=== PATIENT | female | born 1975 | race African-American/Black ===

== ENCOUNTER 2019-12-30 08:00 | Emergency (ER) | payer MEDICAID, SELFPAY ==
[2019-12-30] VITALS (34 sets, daily range): BP systolic 129–153; BP diastolic 75–100; PULSE 80–96; RESP 12–27; TEMP 36.9; O2SAT 98–100
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
[2019-12-30 09:15] LABS: Basophils Percent Auto 0.5 % (0.2-1.2); Eosinophils Absolute Auto 0.1 K/mm3 (0-0.3); Eosinophils Percent Auto 2.3 % (0-4.4); Hematocrit 39.4 % (37.0-47.0); Hemoglobin 12.2 g/dL (12.0-15.0); Lymphocytes Absolute Auto 2.32 K/mm3 (0.9-3.2); Lymphocytes Percent Auto 52.4 % (18.3-44.2); Mean Corpuscular Hemoglobin 28.5 pg (26-34); Mean Corpuscular Volume 92.1 fl (80-100); Monocytes Absolute Auto 0.4 K/mm3 (0.1-0.6); Monocytes Percent Auto 8.8 % (2.6-8.5); Neutrophils Absolute Auto 1.6 K/mm3 (1.3-6.7); Platelet Count Result 223 k/mm3 (150-375); Red Blood Count 4.28 M/mm3 (4.2-5.4); White Blood Count 4.4 K/mm3 (4.5-10.0)
[2019-12-30 09:30] LABS: Alanine Aminotransferase 42 U/L (4-35); Albumin Level 4.5 g/dL (3.5-5.1); Alkaline Phosphatase 80 U/L (38-126); Aspartate Amino Transferase 39 U/L (14-36); Bilirubin,Total 0.2 mg/dL (0.2-1.3); Blood Urea Nitrogen 14 mg/dL (7-17); CRP < 0.5 mg/dL (<1.0); Calcium 9.6 mg/dL (8.4-10.2); Carbon Dioxide 24 mmol/L (22-30); Chloride 103 mmol/L (98-107); Estimated CRCL calculation 99 ml/min; Estimated Glomerular Filt Rate > 60; Glucose 93 mg/dL (65-105); Potassium 3.9 mmol/L (3.4-5.0); Sodium 141 mmol/L (137-145)
[2019-12-30 09:49] LABS: Add Urine Microscopic? YES; Appearance Urine Clear (Clear); Bacteria Urine Trace /hpf; Bilirubin Urine Negative (Negative); Blood Urine Negative (Negative); Color Urine Straw (Yellow); Glucose Urine UA Negative (Negative); Ketones Urine Negative (Negative); Leukocyte Esterase Ur Trace LEU/UL (Negative); Mucus Urine Rare /lpf; Nitrate Urine Negative (Negative); Protein Urine Negative (Negative); RBC Urine 0-2 /hpf (0-2); Specific Grav Ur 1.013 (1.001-1.035); Squamous Epithelial Cell Urine Few /hpf (Few); Urobilinogen Urine Negative mg/dL (<2.0)
[2019-12-30 10:29] LABS: Erythrocyte Sedimentation Rate 23 mm/hr (0-20)
--- NOTE | 2019-12-30 14:11 | PC.NURSE ---
Sitting at bedside. Using left arm to put clothes on.
== END 2019-12-30 14:23 | disposition home or self-care (01) ==
PROVIDERS: Emergency Provider Emergency Medicine
DX: M32.9 Systemic lupus erythematosus, unspecified (principal); J45.909 Unspecified asthma, uncomplicated; M06.9 Rheumatoid arthritis, unspecified; M35.00 Sjogren syndrome, unspecified; G62.9 Polyneuropathy, unspecified; Z86.2 Personal history of diseases of the blood and blood-forming organs and certain disorders involving the immune mechanism
CPT/HCPCS: 36415; 80053; 81001; 85025; 85652; 86140; 99283

== ENCOUNTER 2021-08-06 13:38 | Emergency (ER) | payer BC, MEDICAID, SELFPAY ==
--- NOTE | ~2021-08-06 | CT_ITS ---
EXAMINATION: CT abdomen pelvis w con DATE: 08/06/2021 17:21 INDICATION: Right lower quadrant pain for 10 days TECHNIQUE: Computed tomography (CT) of the abdomen and pelvis was performed with 100 cc Omnipaque 350 intravenous contrast. Automated exposure control and iterative reconstruction technique were employe d. Exam dose: 1081.10 mGy-cm total exam DLP. COMPARISON: None. FINDINGS: Normal heart size. No pericardial or pleural effusion. The lung bases are clear of consolid ation. Diffuse hepatic steatosis. No hepatic space-occupying mass lesion is evident. The gallbladder is pres ent. No bile duct or pancreatic duct dilatation or pancreatic mass lesion or calcification. Normal sp lenic size. Normal morphology of the adrenal glands. 5 mm lower pole right renal cyst. 6.5 mm left renal upper pole probable cyst. No urinary tract calcul us or hydroureteronephrosis. The urinary bladder is unremarkable. Normal caliber of the abdominal aorta. No intraperitoneal or retroperitoneal or pelvic mass lesion or adenopathy or ascites is detected. Normal appendix. Scattered diverticula of the sigmoid colon; no CT evidence of diverticulitis. No bow el obstruction, bowel wall thickening, pneumatosis or intraperitoneal free air. Status post hysterectomy. Very small fat-containing umbilical hernia. Included skeletal structures are unremarkable, without evidence of suspicious osteolytic or osteoblas tic lesion IMPRESSION: Normal appendix Hepatic steatosis Diverticulosis of the sigmoid colon; no CT evidence of diverticulitis Small probable bilateral renal cysts Status post hysterectomy Reviewed, dictated and finalized at [facility] Reviewed, dictated and finalized at [facility].
[2021-08-06 13:42] VITALS: BP 168/115; PULSE 91; RESP 18; TEMP 36.5; O2SAT 99
[2021-08-06 13:52] LABS: Basophils Percent Auto 0.3 % (0.2-1.2); Eosinophils Absolute Auto 0.2 K/mm3 (0-0.3); Hematocrit 37.3 % (37.0-47.0); Hemoglobin 11.8 g/dL (12.0-15.0); Lymphocytes Absolute Auto 1.55 K/mm3 (0.9-3.2); Mean Corpuscular HGB Conc 31.6 g/dl (32-36); Mean Corpuscular Hemoglobin 29.4 pg (26-34); Mean Platelet Volume 10.5 fl (7.4-10.4); Monocytes Absolute Auto 0.4 K/mm3 (0.1-0.6); Monocytes Percent Auto 10.3 % (2.6-8.5); Neutrophils Absolute Auto 1.8 K/mm3 (1.3-6.7); Neutrophils Percent Auto 45.4 % (45.5-73.1); Platelet Count Result 227 k/mm3 (150-375); Red Blood Count 4.01 M/mm3 (4.2-5.4); Red Cell Distribution Width 12.6 % (11.5-14.5)
[2021-08-06 14:09] LABS: Anion Gap 7 mmol/L (8-16); Blood Urea Nitrogen 9 mg/dL (7-17); Calcium 9.4 mg/dL (8.4-10.2); Carbon Dioxide 29 mmol/L (22-30); Chloride 107 mmol/L (98-107); Estimated CRCL calculation 99 ml/min; Estimated Glomerular Filt Rate > 60; Glucose 109 mg/dL (65-110); Potassium 3.8 mmol/L (3.4-5.0); Sodium 143 mmol/L (137-145)
[2021-08-06 14:23] LABS: Add Urine Microscopic? YES; Appearance Urine Clear (Clear); Bilirubin Urine Negative (Negative); Blood Urine Negative (Negative); Color Urine Yellow (Yellow); Glucose Urine UA Negative (Negative); Ketones Urine Negative (Negative); Leukocyte Esterase Ur Negative LEU/UL (Negative); Mucus Urine Rare /lpf; Nitrate Urine Negative (Negative); Protein Urine Negative (Negative); Specific Grav Ur 1.018 (1.001-1.035); Squamous Epithelial Cell Urine Few /hpf (Few); WBC Urine 0-3 /hpf
[2021-08-06 16:03] VITALS: BP 153/104; PULSE 84; RESP 16; O2SAT 98
[2021-08-06] MEDS: DICYCLOMINE HCL INJ 20 MG/2 ML VIAL IM (18:38)
[2021-08-06 19:09] VITALS: BP 142/89; PULSE 88; RESP 18; O2SAT 100
--- NOTE | 2021-08-06 20:07 | ED.ABDPAIN ---
HPI - Abdominal Pain General Chief Complaint: Abdominal Pain Stated Complaint: right flank pain Time Seen by Provider: 08/06/21 16:05 Source: patient Mode of arrival: ambulatory Limitations: no limitations History of Present Illness HPI narrative: 46-year-old female Here for right-sided abdominal pain Pain started about 2 weeks ago and is slowly gotten worse She initially saw her PCP about 12 days ago and at that time she had a CT scan which was done elsewhere which she reports was unremarkable She has a poor appetite, but is not vomiting No fever, no diarrhea She denies urinary symptoms Pain is worse with palpation some movements of her legs walking some positions and movements She has previously had a hysterectomy but no other abdominal operations Related Data Home Medications Medication Instructions Recorded Confirmed acetaminophen-codeine tablet 08/06/21 albuterol sulfate INHALATION 08/06/21 amitriptyline 08/06/21 duloxetine mg PO 08/06/21 leflunomide mg 08/06/21 sulfamethoxazole-trimethoprim tablet 08/06/21 Allergies Allergy/AdvReac Type Severity Reaction Status Date / Time lactose Allergy Unknown UNKNOWN Verified 08/06/21 16:14 Review of Systems Review of Systems: All systems reviewed & are unremarkable except as noted in HPI and below Constitutional: Constitutional: Reports no additional constitutional complaints, Denies chills, Denies fever(s) and Denies headache(s) Eyes: Eyes: Reports no additional eye complaints and Denies change in vision ENT: Denies headache(s) and Denies sore throat Cardiovascular: Cardiovascular: Denies chest pain and Denies dyspnea Respiratory: Respiratory: Denies cough and Denies dyspnea Gastrointestinal: Gastrointestinal: Reports abdominal pain, Denies bloating, Denies constipation, Denies diarrhea and Denies vomiting Genitourinary: Genitourinary: Denies urinary frequency, Denies nocturia, Denies dysuria and Denies flank pain Musculoskeletal: Musculoskeletal: Denies deformity, Denies arthralgias, Denies joint swelling and Denies numbness Integumentary/Breasts: Skin/Breast: Denies rash and Denies wounds Neurologic: Denies headache(s), Denies focal weakness and Denies numbness Psychiatric: Psychiatric: Reports no additional psychiatric complaints Endocrine: Endocrine: Reports no additional endocrine complaints Hematologic/Lymphatic: Hematologic/Lymphatic: Reports no additional hematologic/lymphatic complaints Allergic/Immunologic: Allergic/Immunologic: Reports no additional allergic/immunologic complaints PMFSH Past Medical History Medical History (Updated 08/06/21 @ 20:09 by Joao Espinoza MD) Anemia Anxiety Asthma Depression Diverticulitis Eczema History of chemotherapy Lupus Peripheral neuropathy Rheumatoid arthritis Sjogren's disease Surgical History Surgical History H/O: hysterectomy Social History Social History Smoking status: Unknown if ever smoked Exam Const: General: cooperative and no acute distress Orientation/consciousness: patient oriented x3 (alert) HENMT: Head: normal to inspection, normocephalic and atraumatic Ears: external ears normal General nose exam: no epistaxis Eyes: Conjunctivae: conjunctivae normal EOM: EOMs intact bilaterally Neck: Neck: normal visual inspection, supple and no JVD Resp: Effort & Inspection: normal respiratory effort and not labored Auscultation: clear to auscultation bilaterally, no rales, no rhonchi, no wheezes and other (BS =) Cardio: Rate: regular rate Rhythm: regular rhythm Heart sounds: no murmurs GI: GI Palp: Yes Soft to palpation, Yes Tenderness to palpation present (GI), No Guarding due to palpation present (GI) and Yes Rebound tenderness present Other: Tenderness is pretty well localized within the right lower quadrant, no masses felt, there is little bit of rebound tendernes
[2021-08-06 20:23] VITALS: BP 136/78; PULSE 77; RESP 18; O2SAT 100
== END 2021-08-06 20:24 | disposition home or self-care (01) ==
PROVIDERS: Emergency Provider Emergency Medicine
DX: R10.9 Unspecified abdominal pain (principal); J45.909 Unspecified asthma, uncomplicated; D64.9 Anemia, unspecified; M35.00 Sjogren syndrome, unspecified; M06.9 Rheumatoid arthritis, unspecified; G62.9 Polyneuropathy, unspecified; F41.9 Anxiety disorder, unspecified; F32.9 Major depressive disorder, single episode, unspecified; K76.0 Fatty (change of) liver, not elsewhere classified; K57.90 Diverticulosis of intestine, part unspecified, without perforation or abscess without bleeding; R93.422 Abnormal radiologic findings on diagnostic imaging of left kidney; R93.421 Abnormal radiologic findings on diagnostic imaging of right kidney
CPT/HCPCS: 36415; 74177; 80048; 81001; 81025; 85025; 96372; 99284; J0500; Q9967

== ENCOUNTER 2023-10-12 20:22 | Emergency (ER) | payer BC, SELFPAY ==
[2023-10-12] VITALS (8 sets, daily range): BP systolic 131–158; BP diastolic 76–110; PULSE 98–113; RESP 12–26; TEMP 37.1; O2SAT 98–100
--- NOTE | ~2023-10-12 | XR_ITS ---
EXAMINATION: XR chest 2V Exam Date/Time: 10/12/2023 20:40 [employer] HISTORY: cp MID ANTERIOR X 1 DAY Comparison: 08/02/2019. RESULT: Lines, tubes, and devices: None. Lungs and pleura: Clear. Cardiomediastinal silhouette: Unremarkable. Other: No acute osseous or upper abdominal finding. IMPRESSION: No acute cardiopulmonary process. Reviewed, dictated and finalized at [facility] [employer]
--- NOTE | 2023-10-12 20:23 | ECG_ITS ---
Measurements Intervals [place] Rate: 108 P: 46 CO: 116 QRS: 21 QRSD: 94 T: 37 QT: 350 QTc: 470 Interpretive Statements SINUS TACHYCARDIA WITH SHORT CO INTERVAL DELAYED PRECORDIAL R/S TRANSITION ABNORMAL ECG COMPARED TO ECG 08/03/2019 18:39:08 SINUS TACHYCARDIA NOW PRESENT Electronically Signed On 10-13-2023 6:18:48 MEDIA SERVICES DIRECTOR by Óscar Avendaño D.O.
[2023-10-12 20:48] LABS: Basophils Percent Auto 0.2 % (0.2-1.2); Eosinophils Absolute Auto 0.1 K/mm3 (0-0.3); Eosinophils Percent Auto 1.7 % (0-4.4); Hematocrit 38.1 % (37.0-47.0); Hemoglobin 11.9 g/dL (12.0-15.0); Immature Granulocyte Absolute 0.01 K/mm3 (0.00-0.031); Immature Granulocyte Percent A 0.2 % (0-0.5); Lymphocytes Percent Auto 24.3 % (18.3-44.2); Mean Corpuscular HGB Conc 31.2 g/dl (32-36); Mean Corpuscular Hemoglobin 28.6 pg (26-34); Mean Corpuscular Volume 91.6 fl (80-100); Mean Platelet Volume 10.2 fl (7.4-10.4); Monocytes Absolute Auto 0.5 K/mm3 (0.1-0.6); Monocytes Percent Auto 10.1 % (2.6-8.5); Neutrophils Absolute Auto 3.4 K/mm3 (1.3-6.7); Neutrophils Percent Auto 63.5 % (45.5-73.1); Platelet Count Result 232 k/mm3 (150-375); Red Blood Count 4.16 M/mm3 (4.2-5.4); Red Cell Distribution Width 12.7 % (11.5-14.5); White Blood Count 5.4 K/mm3 (4.5-10.0)
[2023-10-12 20:51] LABS: Alanine Aminotransferase 23 U/L (6-35); Albumin Level 4.5 g/dL (3.5-5.1); Alkaline Phosphatase 72 U/L (38-126); Anion Gap 8 mmol/L (8-16); Aspartate Amino Transferase 33 U/L (14-36); Bilirubin,Total 0.4 mg/dL (0.2-1.3); Blood Urea Nitrogen 10 mg/dL (7-17); Calcium 9.2 mg/dL (8.4-10.2); Carbon Dioxide 26 mmol/L (22-30); Chloride 109 mmol/L (98-107); Estimated CRCL calculation 95 ml/min; Estimated Glomerular Filt Rate > 60; Glucose 98 mg/dL (65-110); Lipase 122 U/L (23-300); Potassium 3.9 mmol/L (3.4-5.0); Sodium 143 mmol/L (137-145)
[2023-10-12 21:03] LABS: Troponin I < 0.012 ng/mL (0.000-0.034)
[2023-10-12 21:40] LABS: Prothrombin Time 13.5 Seconds (11.1-14.7)
[2023-10-12 21:41] LABS: Partial Thromboplastin Time 25.2 SECONDS (22.3-36.8)
[2023-10-12] MEDS: ASPIRIN 81 MG CHEWABLE TABLET 324 MG PO (23:16)
--- NOTE | 2023-10-12 23:27 | PC.NURSE ---
care and report given to ARTHUR Mittal. all questions answered.
[2023-10-12 23:51] LABS: D Dimer 0.28 ug/mL (<0.48)
[2023-10-12 23:56] LABS: Troponin I < 0.012 ng/mL (0.000-0.034)
[2023-10-13 00:15] VITALS: BP 152/97; PULSE 97; RESP 17; O2SAT 100
--- NOTE | 2023-10-13 01:14 | ED.GENADULT ---
HPI - General Adult General Chief complaint: Chest Pain Stated complaint: chest pain Time Seen by Provider: 10/12/23 23:08 History of Present Illness HPI narrative: Patient is a 48-year-old female who presents emerged from with chief complaint of chest pain. Patient reports around 10:00 a.m. this morning started having pains reports having aching like sensation reports that she took some antacids without really relief. The patient does report the pain has been pretty well constant does report that it is worse with movement. Related Data Home Medications Medication Instructions Recorded Confirmed acetaminophen 300 mg-codeine 30 mg tablet 08/06/21 tablet albuterol sulfate 90 mcg/actuation inhalation 08/06/21 aerosol inhaler amitriptyline 10 mg tablet 08/06/21 duloxetine 60 mg capsule,delayed mg PO 08/06/21 release leflunomide 20 mg tablet mg 08/06/21 sulfamethoxazole 800 tablet 08/06/21 mg-trimethoprim 160 mg tablet Allergies Allergy/AdvReac Type Severity Reaction Status Date / Time lactose Allergy Unknown UNKNOWN Verified 08/06/21 16:14 Review of Systems Review of Systems: A 10 system review of systems was completed on the patient and is negative except for what is stated in the HPI. Nursing and ancillary documentation was reviewed. [facility] Past Medical History Medical History (Updated 10/13/23 @ 01:16 by Mikhail Kelly MD) Anemia Anxiety Asthma Depression Diverticulitis Eczema History of chemotherapy Lupus Peripheral neuropathy Rheumatoid arthritis Sjogren's disease Surgical History Surgical History H/O: hysterectomy Social History Social History Smoking status: Unknown if ever smoked Exam Narrative: GENERAL: Well-appearing, well-nourished, and in no acute distress. HEAD: Normocephalic, atraumatic. EYES: PERRLA and EOMI. ENT: Nares clear, no rhinorrhea or epistaxis. Mucous membranes moist. NECK: Supple. CHEST: Clear to auscultation. No respiratory distress the tenderness to palpation in the left chest wall. HEART: Regular rate and rhythm. No murmur heard. Normal peripheral pulses. ABDOMEN: Soft, nontender, nondistended, normal active bowel sounds. EXTREMITIES: Normal range of motion. No edema. SKIN: Warm, dry, no rash. NEURO: No focal deficits. Alert and oriented x3. PSYCH: Normal mood and affect. Course Vital Signs Vital signs: Vital Signs Temperature 37.1 C 10/12/23 20:29 Pulse Rate 113 H 10/12/23 20:29 Respiratory Rate 16 10/12/23 20:29 Blood Pressure 158/110 H 10/12/23 20:29 Pulse Oximetry 100 10/12/23 20:29 Temperature 37.1 C 10/12/23 20:29 Pulse Rate 97 10/13/23 00:15 Respiratory Rate 17 10/13/23 00:15 Blood Pressure 152/97 H 10/13/23 00:15 Pulse Oximetry 100 10/13/23 00:15 Oxygen Delivery Room Air 10/12/23 22:38 Medical Decision Making MDM Narrative Medical decision making narrative: Differential diagnosis includes ACS, chest wall pain, pneumothorax, pulmonary embolism Laboratory studies were obtained showed normal CBC normal CMP troponins 0 hour 3 hour D-dimer was negative Chest x-ray showed no acute infiltrate or pneumothorax EKG showed no acute ischemic changes Vital Signs Vital Signs: Vital Signs Temperature 37.1 C 10/12/23 20:29 Pulse Rate 113 H 10/12/23 20:29 Respiratory Rate 16 10/12/23 20:29 Blood Pressure 158/110 H 10/12/23 20:29 Pulse Oximetry 100 10/12/23 20:29 Temperature 37.1 C 10/12/23 20:29 Pulse Rate 97 10/13/23 00:15 Respiratory Rate 17 10/13/23 00:15 Blood Pressure 152/97 H 10/13/23 00:15 Pulse Oximetry 100 10/13/23 00:15 Oxygen Delivery Room Air 10/12/23 22:38 Lab Data 10/12/23 20:35 10/12/23 20:35 Labs: Lab Results 10/12/23 10/12/23 Range/Units 20:35
[2023-10-13 01:32] VITALS: BP 128/83; PULSE 93; RESP 15; TEMP 36.3; O2SAT 100
== END 2023-10-13 01:33 | disposition home or self-care (01) ==
PROVIDERS: Emergency Provider Emergency Medicine
DX: R07.89 Other chest pain (principal); D64.9 Anemia, unspecified; F41.9 Anxiety disorder, unspecified; J45.909 Unspecified asthma, uncomplicated; F32.A Depression, unspecified; M32.9 Systemic lupus erythematosus, unspecified; M06.9 Rheumatoid arthritis, unspecified
CPT/HCPCS: 36415; 71046; 80053; 83690; 84484; 85025; 85380; 85610; 85730; 93005; 99284; A9270

== ENCOUNTER 2025-01-31 22:32 | Emergency (ER) | payer BC, SELFPAY ==
--- NOTE | ~2025-01-31 | XR_ITS ---
CHEST RADIOGRAPH, PA AND LATERAL CLINICAL HISTORY: CP/SOB . COMPARISON: 10/12/2023 TECHNIQUE: PA and lateral views of the chest. FINDINGS The cardiomediastinal silhouette is unremarkable. The lungs are clear. Visualized osseous structures and soft tissues are unremarkable. IMPRESSION: No focal infiltrate or effusion. Reviewed, dictated and finalized at location A.
[2025-01-31 22:34] VITALS: BP 154/86; PULSE 95; RESP 15; TEMP 36.6; O2SAT 100
--- OUTSIDE RECORDS SUMMARY | 2025-01-31 22:35 | XMS_ITS | Referral Summary ---
Author Organization [facility] Address [address] [place] [address] Care Team Providers Care Business Line Manager Name Role Phone Marisa Rehman DO Primary Care Provi km Marisa Rehman DO Unavailable [phone] Marisa Rehman DO Unavailable [phone] Encounters Date Type Department Care Team Description 01/09/2025 5:05 PM TIN WORKER - 01/09/2025 9:01 PM [facility] Emergency [facility] Emergency Department [address] [place] [id number] Peter Nur MD Pneumonia of right upper lobe due to infectious organism (Primary Dx) Discharge Disposition: Discharge to home or self care 01/09/2025 Telephone [facility] Primary Care at [facility] - [address] [place] [phone] Marisa Rehman DO Medical Question/Miscellaneous from Last 3 Months Allergies Active Allergy Reactions Criticality Noted Date Comments Latex Itching Low 04/04/2018 Medications albuterol HFA (PROVENTIL HFA,VENTOLIN HFA,PROAIR HFA) 90 mcg/actuation inhaler INHALE 2 PUFFS BY MOUTH EVERY 4 HOURS NEEDED FOR WHEEZING OR SHORTNESS OF BREATH 18 g 5 02/08/20 22 Active dicyclomine (BENTYL) 20 mg tabletIndications :Irritable Bowel Syndrome Take 1 tablet (20 mg total) by mouth 4 (four) times a day (with meals and nightly) 120 tablet 5 03/10/[address] (PROTONIX) 40 mg EC tablet Take 1 tablet (40 mg total) by mouth daily 30 tablet 03/10/20 Active senna-docusate (PERICOLACE) 8.6-50 mg Take 2 tablets by mouth 2 (two) times a day 120 tablet 03/10/20 Active Additional Information Patient not taking.Reported on 09/29/2024 ergocalciferol (VITAMIN D) 50,000 unit capsule Take one capsule weekly for 12 weeks, then take one capsule monthly thereafter 12 capsule 1 07/23/20 Active Additional Information Patient not taking.Informant: Self, Reported on 09/29/2024 aspirin 325 mg enteric coated tablet Take 1 tablet (325 mg total) by mouth daily 30 tablet 10/28/20 Active atorvastatin (LIPITOR) 80 mg tablet Take 1 tablet (80 mg total) by mouth daily 30 tablet 10/28/20 Active Additional Information Patient not taking.Informant: Self, Reported on 09/29/2024 escitalopram (LEXAPRO) 10 mg tabletIndications :Moderate episode of recurrent major depressive disorder (HCC) Take 1 tablet (10 mg total) by mouth daily 30 tablet 5 12/08/19 Active Additional Information Patient not taking.Informant: Self, Reported on 09/29/2024 mv-min/iron/folic /calcium/vitK (WOMEN'S MULTIVITAMIN ORAL) Take by mouth Active lisinopriL (PRINIVIL,ZESTRIL ) 20 mg tabletIndications :Systemic lupus erythematosus, unspecified SLE type, unspecified organ involvement status (HCC),Essential hypertension Take 1 tablet (20 mg total) by mouth daily 90 tablet 3 12/08/19 Active propranoloL (INDERAL) 10 mg tabletIndications :Anxiety Take 1 tablet (10 mg total) by mouth 2 (two) times a day 180 tablet 1 09/02/20 23 04/19/2 025 Active leflunomide (ARAVA) 20 mg tabletIndications :Systemic lupus erythematosus, unspecified SLE type, unspecified organ involvement status (HCC) Take 1 tablet (20 mg total) by mouth daily 90 tablet 1 12/22/19 24 Active hydroxychloroquin e (PLAQUENIL) 200 mg tabletIndications :Systemic Lupus Erythematosus Take 2 tablets (400 mg total) by mouth daily 180 tablet 1 12/22/19 24 025 Active clobetasoL (TEMOVATE) 0.05 % ointment 02/17/20 24 Active busPIRone (BUSPAR) 7.5 mg tabletIndications :Generalized Anxiety Disorder Take 1 tablet (7.5 mg total) by mouth 3 (three) times a day 90 tablet 11 03/03/20 24 025 Active amLODIPine (NORVASC) 5 mg tabletIndications :Hypertension goal BP (blood pressure) < 130/80 Take 1 tablet (5 mg total) by mouth daily 90 tablet 3 03/03/20 24 025 Active amitriptyline (ELAVIL) 50 mg tabletIndications :anxiety,depressi on Take 1 tablet (50 mg total) by mouth nightly 30 tablet 5 03/03/20 24 Active Additional Information Patient not taking.Reported on 08/25/2024 HYDROcodone-aceta minophen (NORCO) 5-325 mg per tablet Take 1 tablet by mouth every 6 (six) hours as needed for pain 03/28/20 24 Active traMADoL (ULTRAM) 50 mg tablet Take 1 tablets every 6 hours as needed for pain. 40 tablet 04/03/20 24 Active Additional Information Patient not taking.Reported on 09/29/[address] (CYMBALTA) 60 mg capsuleIndication s:Chronic pain syndrome Take 1 capsule (60 mg total) by mouth daily 90 capsule 05/31/20 24 025 Active traZODone (DESYREL) 50 mg tablet Take 1 tablet (50 mg total) by mouth nightly 30 tablet 3 05/31/20 24 025 Active diclofenac sodium (VOLTAREN) 1 % gel Apply 4 g topically 4 (four) times a day 450 g 06/19/20 24 Active Additional Information Patient not taking.Reported on 09/29/2024 cefdinir (OMNICEF) 300 mg capsuleIndication s:Pneumonia, Community Acquired Take 1 capsule (300 mg total) by mouth 2 (two) times a day for 10 days 20 capsule 01/09/20 25 025 doxycycline (VIBRAMYCIN) 100 mg capsuleIndication s:Pneumonia, Community Acquired Take 1 tablet/capsule (100 mg total) by mouth 2 (two) times a day for 10 days 20 tablet/capsu le 01/09/20 25 025 Active Problems Problem Noted Date Diagnosed Date Right hand pain 09/29/2024 Assessment & Plan (10/08/2024 5:16 PM TIN WORKER): -09/29/2024,She fell on Wednesday,xray hand,apply topical analgesic. Claudication of both lower extremities Assessment & Plan (07/09/2024 6:10 PM CDT): -07/05/2024,chronic,order arterial doppler. Fall 03/31/2024 Assessment & Plan (03/31/2024 12:50 PM CDT): Acute, reports she fell this past Wednesday running to the car. She was seen in urgent care and diagnosed with left calcaneal fracture. Unable to get into orthopedics. Foot and heel are swollen and tender to palpation. Check x-rays of foot. Continue percocet as prescribed. Left foot pain 03/31/2024 Assessment & Plan (07/20/2024 4:20 PM CDT): Chronic, stable. Reports left ankle swelling. Likely ligamental in origin. Recommend ankle sleeve for support. Assessment & Plan (03/31/2024 12:50 PM CDT): Acute, reports she fell this past Wednesday running to the car. She was seen in urgent care and diagnosed with left calcaneal fracture. Unable to get into orthopedics. Foot and heel are swollen and tender to palpation. Check x-rays of foot. Continue percocet as prescribed. Refer to orthopedics Hypertension goal BP (blood pressure) < 130/80 0 01/06/2024 Assessment & Plan (08/26/2024 10:38 PM CDT): -07/05/2024,chronic,BP 134/76,con't norvasc,lisinopril,encouraged to follow a low salt diet. -08/25/2024,chronic,BP 130/84,controlled,con't norvasc,lisinopril,low salt diet. Assessment & Plan (07/09/2024 6:05 PM CDT): -07/05/2024,chronic,BP 134/76,con't norvasc,lisinopril,encouraged to follow a low salt diet. Assessment & Plan (03/03/2024 2:11 PM CDT): Chronic, stable. BP 138/72. Continue amlodipine 5mg daily, lisinopril 20mg daily, and low sodium diet. Assessment & Plan (01/06/2024 10:51 AM TIN WORKER): Chronic, stable. BP 122/86. Continue amlodipine 5mg daily, lisinopril 20mg daily, and low sodium diet. Expressive speech delay 07/12/2023 Assessment & Plan (07/09/2024 6:07 PM CDT): -07/05/2024,chronic,stable. Assessment & Plan (07/12/2023 8:38 AM CDT): Chronic, worsening. Reports since 04/2023 has had more difficulty with speech. Refer to speech therapy. Other dysphagia 07/12/2023 Assessment & Plan (07/12/2023 8:37 AM CDT): Chronic, worsening. Reports difficulty swallowing some foods. Refer to speech therapy. Lymphadenopathy of left cervical region 05/25/20 Assessment & Plan (06/13/2023 10:47 AM CDT): -05/25/2023,chronic,TTP,palpable,refer to ENT. CVA, old, alterations of sensations 05/06/2023 Assessment & Plan (08/26/2024 10:30 PM CDT): -05/25/2023,chronic,improving,KIERA VELARDE was advised to maintain a low fat, low cholesterol diet,con't ASA,lipitor.COMPLETED FMLA forms. -07/05/2024,chronic,improving,KIERA VELARDE was advised to maintain a low fat, low cholesterol diet,con't ASA,lipitor. -08/25/2024,chronic,stable,maintain a low fat, low cholesterol diet,con't ASA,lipitor. Lab Results Component Value Date CHOL 146 07/05/2024 CHOL 147 2023 CHOL 152 10/20/2022 Lab Results Component Value Date HDL 39 (L) 07/05/2024 HDL 35 (L) 2023 HDL 35 (L) 10/20/2022 Lab Results Component Value Date LDLCALC 80 07/05/2024 LDLCALC 83 2023 LDLCALC 76 10/20/2022 LDL 72 12/29/2016 LDL 64 07/31/2014 Lab Results Component Value Date TRIG 152 (H) 07/05/2024 TRIG 147 2023 TRIG 203 (H) 10/20/2022 Assessment & Plan (07/09/2024 6:09 PM CDT): -05/25/2023,chronic,improving,KIERA VELARDE was advised to maintain a low fat, low cholesterol diet,con't ASA,lipitor.COMPLETED FMLA forms. -07/05/2024,chronic,improving,KIERA VELARDE was advised to maintain a low fat, low cholesterol diet,con't ASA,lipitor. Lab Results Component Value Date CHOL 146 07/05/2024 CHOL 147 2023 CHOL 152 10/20/2022 Lab Results Component Value Date HDL 39 (L) 07/05/2024 HDL 35 (L) 2023 HDL 35 (L) 10/20/2022 Lab Results Component Value Date LDLCALC 80 07/05/2024 LDLCALC 83 2023 LDLCALC 76 10/20/2022 LDL 72 12/29/2016 LDL 64 07/31/2014 Lab Results Component Value Date TRIG 152 (H) 07/05/2024 TRIG 147 2023 TRIG 203 (H) 10/20/2022 Assessment & Plan (07/12/2023 8:40 AM CDT): Chronic, unchanged. Advised to take all medications as prescribed and to maintain a low fat/low cholesterol diet. Continue ASA and lipitor. Assessment & Plan (06/13/2023 10:56 AM CDT): -05/25/2023,chronic,improving,Kiera Mancuso was advised to maintain a low fat, low cholesterol diet,con't ASA,lipitor.COMPLETED FMLA forms. Lab Results Component Value Date CHOL 147 2023 CHOL 152 10/20/2022 CHOL 150 12/27/2021 Lab Results Component Value Date HDL 35 (L) 2023 HDL 35 (L) 10/20/2022 HDL 31 (L) 12/27/2021 Lab Results Component Value Date LDLCALC 83 2023 LDLCALC 76 10/20/2022 LDLCALC 92 12/27/2021 LDL 72 12/29/2016 LDL 64 07/31/2014 Lab Results Component Value Date TRIG 147 2023 TRIG 203 (H) 10/20/2022 TRIG 134 12/27/2021 Dyslipidemia, goal LDL below 70 05/04/2023 Assessment & Plan (08/26/2024 10:31 PM CDT): -05/25/2023,chronic,improving,con't lipitor,KIERA VELARDE was advised to maintain a low fat, low cholesterol diet. -07/05/2024,chronic,uncontrolled,con't lipitor,maintain a low fat, low cholesterol diet. -08/25/2024,chronic,improved,con't lipitor,maintain a low fat, low cholesterol diet. Lab Results Component Value Date CHOL 146 07/05/2024 CHOL 147 2023 CHOL 152 10/20/2022 Lab Results Component Value Date HDL 39 (L) 07/05/2024 HDL 35 (L) 2023 HDL 35 (L) 10/20/2022 Lab Results Component Value Date LDLCALC 80 07/05/2024 LDLCALC 83 2023 LDLCALC 76 10/20/2022 LDL 72 12/29/2016 LDL 64 07/31/2014 Lab Results Component Value Date TRIG 152 (H) 07/05/2024 TRIG 147 2023 TRIG 203 (H) 10/20/2022 Assessment & Plan (07/09/2024 6:09 PM CDT): -05/25/2023,chronic,improving,con't lipitor,ARTEONEIL VELARDE was advised to maintain a low fat, low cholesterol diet. -07/05/2024,chronic,uncontrolled,con't lipitor,maintain a low fat, low cholesterol diet. Lab Results Component Value Date CHOL 146 07/05/2024 CHOL 147 2023 CHOL 152 10/20/2022 Lab Results Component Value Date HDL 39 (L) 07/05/2024 HDL 35 (L) 2023 HDL 35 (L) 10/20/2022 Lab Results Component Value Date LDLCALC 80 07/05/2024 LDLCALC 83 2023 LDLCALC 76 10/20/2022 LDL 72 12/29/2016 LDL 64 07/31/2014 Lab Results Component Value Date TRIG 152 (H) 07/05/2024 TRIG 147 2023 TRIG 203 (H) 10/20/2022 Assessment & Plan (06/13/2023 10:52 AM CDT): -05/25/2023,chronic,improving,con't lipitor,Kiera Mancuso was advised to maintain a low fat, low cholesterol diet. Lab Results Component Value Date CHOL 147 2023 CHOL 152 10/20/2022 CHOL 150 12/27/2021 Lab Results Component Value Date HDL 35 (L) 2023 HDL 35 (L) 10/20/2022 HDL 31 (L) 12/27/2021 Lab Results Component Value Date LDLCALC 83 2023 LDLCALC 76 10/20/2022 LDLCALC 92 12/27/2021 LDL 72 12/29/2016 LDL 64 07/31/2014 Lab Results Component Value Date TRIG 147 2023 TRIG 203 (H) 10/20/2022 TRIG 134 12/27/2021 Iron deficiency anemia michael menendez to inadequate dietary iron intake 05/04/2023 Assessment & Plan (07/09/2024 6:04 PM CDT): -05/25/2023,chronic,stable,con't iron supplement. -07/05/2024,chronic,stable,con't iron supplement. Assessment & Plan (06/13/2023 10:49 AM CDT): -05/25/2023,chronic,stable,con't iron supplement. Right sided weakness 10/27/2022 Assessment & Plan (07/09/2024 6:01 PM CDT): -12/08/2022,She has weakness from stroke,con't lipitor,ASA,lisinopril,ARTEALIA H USMAN was advised to maintain a low fat, low cholesterol diet,low salt diet,going to physical therapy. -05/25/2023,chronic,has weakness from stroke,con't lipitor,ASA,lisinopril,Artealia H Bartolome was advised to maintain a low fat, low cholesterol diet,low salt diet,con't exercises. -07/05/2024,chronic,has weakness from stroke,con't lipitor,ASA,lisinopril,Artealia H Bartolome was advised to maintain a low fat, low cholesterol diet,low salt diet,con't exercises. Assessment & Plan (07/12/2023 8:37 AM CDT): Chronic, unchanged. Weakness from CVA. Continue lipitor, ASA, lisinopril. Assessment & Plan (06/13/2023 10:43 AM CDT): -12/08/2022,She has weakness from stroke,con't lipitor,ASA,lisinopril,Artealia H Bartolome was advised to maintain a low fat, low cholesterol diet,low salt diet,going to physical therapy. -05/25/2023,chronic,has weakness from stroke,con't lipitor,ASA,lisinopril,Artealia Wallace Mancuso was advised to maintain a low fat, low cholesterol diet,low salt diet,con't exercises. Assessment & Plan (05/04/2023 9:39 AM CDT): Chronic, worsening. Recommend ER evaluation, reports the numbness is different than prior. Discussed risks of not seeking ER care (recurrent CVA, or ). Assessment & Plan (01/02/2023 12:56 PM TIN WORKER): -12/08/2022,She has weakness from stroke,con't lipitor,ASA,lisinopril,Artealia Wallace Mancuso was advised to maintain a low fat, low cholesterol diet,low salt diet,going to physical therapy. Class 1 obesity due to exces s calories with serious comorbidity and body mass index (BMI) of 32.0 to 32.9 in adult 03/29/2022 Assessment & Plan (10/08/2024 5:15 PM TIN WORKER): -03/24/2022,chronic,was encouraged to maintain a regular cardiovascular exercise program,counseled regarding importance of weight loss. -04/21/2022,chronic,improved,was encouraged to maintain a regular cardiovascular exercise program,counseled regarding importance of weight loss. -05/13/2022,chronic,improved,was encouraged to maintain a regular cardiovascular exercise program,counseled regarding importance of weight loss. -06/10/2022,chronic,worse,was encouraged to maintain a regular cardiovascular exercise program,counseled regarding importance of weight loss. -09/21/2022,chronic,worse,was encouraged to maintain a regular cardiovascular exercise program,counseled regarding importance of weight loss. -12/08/2022,chronic,improving,was encouraged to maintain a regular cardiovascular exercise program,counseled regarding importance of weight loss. -01/06/2023,chronic,worse,was encouraged to maintain a regular cardiovascular exercise program,counseled regarding importance of weight loss. -05/25/2023,chronic,worse,was encouraged to maintain a regular cardiovascular exercise program,counseled regarding importance of weight loss. -03/10/2024,chronic,worse,was encouraged to maintain a regular cardiovascular exercise program,counseled regarding importance of weight loss. -07/05/2024,chronic,worse,was encouraged to maintain a regular cardiovascular exercise program,counseled regarding importance of weight loss. -08/25/2024,chronic,improving,maintain a regular cardiovascular exercise program,counseled regarding importance of weight loss. -09/29/2024,chronic,worse,maintain a regular cardiovascular exercise program,counseled regarding importance of weight loss. Assessment & Plan (08/26/2024 10:29 PM CDT): -03/24/2022,chronic,was encouraged to maintain a regular cardiovascular exercise program,counseled regarding importance of weight loss. -04/21/2022,chronic,improved,was encouraged to maintain a regular cardiovascular exercise program,counseled regarding importance of weight loss. -05/13/2022,chronic,improved,was encouraged to maintain a regular cardiovascular exercise program,counseled regarding importance of weight loss. -06/10/2022,chronic,worse,was encouraged to maintain a regular cardiovascular exercise program,counseled regarding importance of weight loss. -09/21/2022,chronic,worse,was encouraged to maintain a regular cardiovascular exercise program,counseled regarding importance of weight loss. -12/08/2022,chronic,improving,was encouraged to maintain a regular cardiovascular exercise program,counseled regarding importance of weight loss. -01/06/2023,chronic,worse,was encouraged to maintain a regular cardiovascular exercise program,counseled regarding importance of weight loss. -05/25/2023,chronic,worse,was encouraged to maintain a regular cardiovascular exercise program,counseled regarding importance of weight loss. -03/10/2024,chronic,worse,was encouraged to maintain a regular cardiovascular exercise program,counseled regarding importance of weight loss. -07/05/2024,chronic,worse,was encouraged to maintain a regular cardiovascular exercise program,counseled regarding importance of weight loss. -08/25/2024,chronic,improving,maintain a regular cardiovascular exercise program,counseled regarding importance of weight loss. Assessment & Plan (07/20/2024 4:19 PM CDT): Chronic, unchanged. Discussed diet and exercise. Information given on TDEE and macronutrient counting. present for education Assessment & Plan (07/09/2024 6:11 PM CDT): -03/24/2022,chronic,was encouraged to maintain a regular cardiovascular exercise program,counseled regarding importance of weight loss. -04/21/2022,chronic,improved,was encouraged to maintain a regular cardiovascular exercise program,counseled regarding importance of weight loss. -05/13/2022,chronic,improved,was encouraged to maintain a regular cardiovascular exercise program,counseled regarding importance of weight loss. -06/10/2022,chronic,worse,was encouraged to maintain a regular cardiovascular exercise program,counseled regarding importance of weight loss. -09/21/2022,chronic,worse,was encouraged to maintain a regular cardiovascular exercise program,counseled regarding importance of weight loss. -12/08/2022,chronic,improving,was encouraged to maintain a regular cardiovascular exercise program,counseled regarding importance of weight loss. -01/06/2023,chronic,worse,was encouraged to maintain a regular cardiovascular exercise program,counseled regarding importance of weight loss. -05/25/2023,chronic,worse,was encouraged to maintain a regular cardiovascular exercise program,counseled regarding importance of weight loss. -03/10/2024,chronic,worse,was encouraged to maintain a regular cardiovascular exercise program,counseled regarding importance of weight loss. -07/05/2024,chronic,worse,was encouraged to maintain a regular cardiovascular exercise program,counseled regarding importance of weight loss. Assessment & Plan (03/18/2024 11:09 PM CDT): -03/24/2022,chronic,was encouraged to maintain a regular cardiovascular exercise program,counseled regarding importance of weight loss. -04/21/2022,chronic,improved,was encouraged to maintain a regular cardiovascular exercise program,counseled regarding importance of weight loss. -05/13/2022,chronic,improved,was encouraged to maintain a regular cardiovascular exercise program,counseled regarding importance of weight loss. -06/10/2022,chronic,worse,was encouraged to maintain a regular cardiovascular exercise program,counseled regarding importance of weight loss. -09/21/2022,chronic,worse,was encouraged to maintain a regular cardiovascular exercise program,counseled regarding importance of weight loss. -12/08/2022,chronic,improving,was encouraged to maintain a regular cardiovascular exercise program,counseled regarding importance of weight loss. -01/06/2023,chronic,worse,was encouraged to maintain a regular cardiovascular exercise program,counseled regarding importance of weight loss. -05/25/2023,chronic,worse,was encouraged to maintain a regular cardiovascular exercise program,counseled regarding importance of weight loss. -03/10/2024,chronic,worse,was encouraged to maintain a regular cardiovascular exercise program,counseled regarding importance of weight loss. Assessment & Plan (03/03/2024 2:11 PM CDT): Chronic, unchanged. Discussed diet and exercise. Assessment & Plan (01/06/2024 10:51 AM TIN WORKER): Chronic, worsening. Discussed diet and exercise. Assessment & Plan (06/13/2023 10:53 AM CDT): -03/24/2022,chronic,was encouraged to maintain a regular cardiovascular exercise program,counseled regarding importance of weight loss. -04/21/2022,chronic,improved,was encouraged to maintain a regular cardiovascular exercise program,counseled regarding importance of weight loss. -05/13/2022,chronic,improved,was encouraged to maintain a regular cardiovascular exercise program,counseled regarding importance of weight loss. -06/10/2022,chronic,worse,was encouraged to maintain a regular cardiovascular exercise program,counseled regarding importance of weight loss. -09/21/2022,chronic,worse,was encouraged to maintain a regular cardiovascular exercise program,counseled regarding importance of weight loss. -12/08/2022,chronic,improving,was encouraged to maintain a regular cardiovascular exercise program,counseled regarding importance of weight loss. -01/06/2023,chronic,worse,was encouraged to maintain a regular cardiovascular exercise program,counseled regarding importance of weight loss. -05/25/2023,chronic,worse,was encouraged to maintain a regular cardiovascular exercise program,counseled regarding importance of weight loss. Assessment & Plan (04/20/2023 10:31 AM CDT): Chronic, improving. Counseled on weight loss and increasing physical activity. Assessment & Plan (02/12/2023 7:06 PM CDT): -03/24/2022,chronic,was encouraged to maintain a regular cardiovascular exercise program,counseled regarding importance of weight loss. -04/21/2022,chronic,improved,was encouraged to maintain a regular cardiovascular exercise program,counseled regarding importance of weight loss. -05/13/2022,chronic,improved,was encouraged to maintain a regular cardiovascular exercise program,counseled regarding importance of weight loss. -06/10/2022,chronic,worse,was encouraged to maintain a regular cardiovascular exercise program,counseled regarding importance of weight loss. -09/21/2022,chronic,worse,was encouraged to maintain a regular cardiovascular exercise program,counseled regarding importance of weight loss. -12/08/2022,chronic,improving,was encouraged to maintain a regular cardiovascular exercise program,counseled regarding importance of weight loss. -01/06/2023,chronic,worse,was encouraged to maintain a regular cardiovascular exercise program,counseled regarding importance of weight loss. Assessment & Plan (01/02/2023 12:50 PM TIN WORKER): -03/24/2022,chronic,was encouraged to maintain a regular cardiovascular exercise program,counseled regarding importance of weight loss. -04/21/2022,chronic,improved,was encouraged to maintain a regular cardiovascular exercise program,counseled regarding importance of weight loss. -05/13/2022,chronic,improved,was encouraged to maintain a regular cardiovascular exercise program,counseled regarding importance of weight loss. -06/10/2022,chronic,worse,was encouraged to maintain a regular cardiovascular exercise program,counseled regarding importance of weight loss. -09/21/2022,chronic,worse,was encouraged to maintain a regular cardiovascular exercise program,counseled regarding importance of weight loss. -12/08/2022,chronic,improving,was encouraged to maintain a regular cardiovascular exercise program,counseled regarding importance of weight loss. Assessment & Plan (10/01/2022 11:00 PM TIN WORKER): -03/24/2022,chronic,was encouraged to maintain a regular cardiovascular exercise program,counseled regarding importance of weight loss. -04/21/2022,chronic,improved,was encouraged to maintain a regular cardiovascular exercise program,counseled regarding importance of weight loss. -05/13/2022,chronic,improved,was encouraged to maintain a regular cardiovascular exercise program,counseled regarding importance of weight loss. -06/10/2022,chronic,worse,was encouraged to maintain a regular cardiovascular exercise program,counseled regarding importance of weight loss. -09/21/2022,chronic,worse,was encouraged to maintain a regular cardiovascular exercise program,counseled regarding importance of weight loss. Assessment & Plan (07/02/2022 9:58 PM CDT): -03/24/2022,chronic,was encouraged to maintain a regular cardiovascular exercise program,counseled regarding importance of weight loss. -04/21/2022,chronic,improved,was encouraged to maintain a regular cardiovascular exercise program,counseled regarding importance of weight loss. -05/13/2022,chronic,improved,was encouraged to maintain a regular cardiovascular exercise program,counseled regarding importance of weight loss. -06/10/2022,chronic,worse,was encouraged to maintain a regular cardiovascular exercise program,counseled regarding importance of weight loss. Assessment & Plan (05/17/2022 8:16 PM CDT): -03/24/2022,chronic,was encouraged to maintain a regular cardiovascular exercise program,counseled regarding importance of weight loss. -04/21/2022,chronic,improved,was encouraged to maintain a regular cardiovascular exercise program,counseled regarding importance of weight loss. -05/13/2022,chronic,improved,was encouraged to maintain a regular cardiovascular exercise program,counseled regarding importance of weight loss. Assessment & Plan (05/02/2022 10:01 PM CDT): -03/24/2022,chronic,was encouraged to maintain a regular cardiovascular exercise program,counseled regarding importance of weight loss. -04/21/2022,chronic,improved,was encouraged to maintain a regular cardiovascular exercise program,counseled regarding importance of weight loss. Assessment & Plan (03/29/2022 10:10 AM CDT): -03/24/2022,chronic,was encouraged to maintain a regular cardiovascular exercise program,counseled regarding importance of weight loss. Generalized abdominal pain 03/05/2022 Assessment & Plan (10/01/2022 11:03 PM TIN WORKER): -POA,She presented to the ER with RLQ pain,emesis since evening prior to admission.She received IVF,pain med,antiemetic in the ER.CT showed fatty liver,possible cholelithiasis.She's c/o diffuse abd pain,nauseated at exam.Con't pain med,IVF,NPO.Ordered HIDA scan,consult general sx. -03/06/2022,unchanged,pain radiates from lower abd to epigastric region.HIDA scan was negative,possible ulcer vs reflux,consult GI.Con't pain med. -03/07/2022,unchanged,she's hungry,change to GI soft diet.EGD and colonoscopy on Wednesday,possible ulcer and/or IBS.All consults appreciated. -03/08/2022,Swollen,TTP RLQ,nauseated,on IVF,back on clear liquid diet.Con't pain medications,scopes tomorrow for further evaluation. -03/09/2022,EGD today unremarkable,3 polyps were removed from cecum during colonoscopy.Etiology of pain remains unclear,still TTP RUQ and RLQ.Order US. -03/24/2022,improved with pain medication and diet changes,possilby IBS. -04/21/2022,chronic,stable,con't diet changes. -09/21/2022,chronic,stable,con't diet changes. Assessment & Plan (05/02/2022 10:08 PM CDT): -POA,She presented to the ER with RLQ pain,emesis since evening prior to admission.She received IVF,pain med,antiemetic in the ER.CT showed fatty liver,possible cholelithiasis.She's c/o diffuse abd pain,nauseated at exam.Con't pain med,IVF,NPO.Ordered HIDA scan,consult general sx. -03/06/2022,unchanged,pain radiates from lower abd to epigastric region.HIDA scan was negative,possible ulcer vs reflux,consult GI.Con't pain med. -03/07/2022,unchanged,she's hungry,change to GI soft diet.EGD and colonoscopy on Wednesday,possible ulcer and/or IBS.All consults appreciated. -03/08/2022,Swollen,TTP RLQ,nauseated,on IVF,back on clear liquid diet.Con't pain medications,scopes tomorrow for further evaluation. -03/09/2022,EGD today unremarkable,3 polyps were removed from cecum during colonoscopy.Etiology of pain remains unclear,still TTP RUQ and RLQ.Order US. -03/24/2022,improved with pain medication and diet changes,possilby IBS. -04/21/2022,chronic,stable,con't diet changes. Assessment & Plan (03/29/2022 9:58 AM CDT): -POA,She presented to the ER with RLQ pain,emesis since evening prior to admission.She received IVF,pain med,antiemetic in the ER.CT showed fatty liver,possible cholelithiasis.She's c/o diffuse abd pain,nauseated at exam.Con't pain med,IVF,NPO.Ordered HIDA scan,consult general sx. -03/06/2022,unchanged,pain radiates from lower abd to epigastric region.HIDA scan was negative,possible ulcer vs reflux,consult GI.Con't pain med. -03/07/2022,unchanged,she's hungry,change to GI soft diet.EGD and colonoscopy on Wednesday,possible ulcer and/or IBS.All consults appreciated. -03/08/2022,Swollen,TTP RLQ,nauseated,on IVF,back on clear liquid diet.Con't pain medications,scopes tomorrow for further evaluation. -03/09/2022,EGD today unremarkable,3 polyps were removed from cecum during colonoscopy.Etiology of pain remains unclear,still TTP RUQ and RLQ.Order US. -03/24/2022,improved with pain medication and diet changes,possilby IBS. Assessment & Plan (03/09/2022 8:30 PM CDT): -POA,She presented to the ER with RLQ pain,emesis since evening prior to admission.She received IVF,pain med,antiemetic in the ER.CT showed fatty liver,possible cholelithiasis.She's c/o diffuse abd pain,nauseated at exam.Con't pain med,IVF,NPO.Ordered HIDA scan,consult general sx. -03/06/2022,unchanged,pain radiates from lower abd to epigastric region.HIDA scan was negative,possible ulcer vs reflux,consult GI.Con't pain med. -03/07/2022,unchanged,she's hungry,change to GI soft diet.EGD and colonoscopy on Wednesday,possible ulcer and/or IBS.All consults appreciated. -03/08/2022,Swollen,TTP RLQ,nauseated,on IVF,back on clear liquid diet.Con't pain medications,scopes tomorrow for further evaluation. -03/09/2022,EGD today unremarkable,3 polyps were removed from cecum during colonoscopy.Etiology of pain remains unclear,still TTP RUQ and RLQ.Order US. Assessment & Plan (03/08/2022 1:22 PM CDT): -POA,She presented to the ER with RLQ pain,emesis since evening prior to admission.She received IVF,pain med,antiemetic in the ER.CT showed fatty liver,possible cholelithiasis.She's c/o diffuse abd pain,nauseated at exam.Con't pain med,IVF,NPO.Ordered HIDA scan,consult general sx. -03/06/2022,unchanged,pain radiates from lower abd to epigastric region.HIDA scan was negative,possible ulcer vs reflux,consult GI.Con't pain med. -03/07/2022,unchanged,she's hungry,change to GI soft diet.EGD and colonoscopy on Wednesday,possible ulcer and/or IBS.All consults appreciated. -03/08/2022,Swollen,TTP RLQ,nauseated,on IVF,back on clear liquid diet.Con't pain medications,scopes tomorrow for further evaluation. Assessment & Plan (03/07/2022 5:02 PM CDT): -POA,She presented to the ER with RLQ pain,emesis since evening prior to admission.She received IVF,pain med,antiemetic in the ER.CT showed fatty liver,possible cholelithiasis.She's c/o diffuse abd pain,nauseated at exam.Con't pain med,IVF,NPO.Ordered HIDA scan,consult general sx. -03/06/2022,unchanged,pain radiates from lower abd to epigastric region.HIDA scan was negative,possible ulcer vs reflux,consult GI.Con't pain med. -03/07/2022,unchanged,she's hungry,change to GI soft diet.EGD and colonoscopy on Wednesday,possible ulcer and/or IBS.All consults appreciated. Assessment & Plan (03/06/2022 9:05 PM CDT): -POA,She presented to the ER with RLQ pain,emesis since evening prior to admission.She received IVF,pain med,antiemetic in the ER.CT showed fatty liver,possible cholelithiasis.She's c/o diffuse abd pain,nauseated at exam.Con't pain med,IVF,NPO.Ordered HIDA scan,consult general sx. -03/06/2022,unchanged,pain radiates from lower abd to epigastric region.HIDA scan was negative,possible ulcer vs reflux,consult GI.Con't pain med. Assessment & Plan (03/05/2022 4:11 PM CDT): -POA,She presented to the ER with RLQ pain,emesis since evening prior to admission.She received IVF,pain med,antiemetic in the ER.CT showed fatty liver,possible cholelithiasis.She's c/o diffuse abd pain,nauseated at exam.Con't pain med,IVF,NPO.Ordered HIDA scan,consult general sx. Calculus of gallbladder with out cholecystitis without obstruction 03/05/2022 Assessment & Plan (10/01/2022 11:04 PM TIN WORKER): -03/24/2022,chronic,stable,avoid fried,fatty,greasy foods. -09/21/2022,chronic,stable,avoid fried,fatty,greasy foods. Assessment & Plan (03/29/2022 9:58 AM CDT): -03/24/2022,chronic,stable,avoid fried,fatty,greasy foods. Assessment & Plan (03/09/2022 8:30 PM CDT): -POA,She presented to the ER with RLQ pain,emesis since evening prior to admission.She received IVF,pain med,antiemetic in the ER.CT showed fatty liver,possible cholelithiasis.She's c/o diffuse abd pain,nauseated at exam.Con't pain med,IVF,NPO.Ordered HIDA scan,consult general sx. -03/06/2022,HIDA scan was negative,avoid fried,fatty,greasy foods -03/07/2022,discussed dietary changes with her -03/08/2022,stable,con't clear liquid diet -03/09/2022,stable,avoid fried,fatty,greasy foods. Assessment & Plan (03/08/2022 1:22 PM CDT): -POA,She presented to the ER with RLQ pain,emesis since evening prior to admission.She received IVF,pain med,antiemetic in the ER.CT showed fatty liver,possible cholelithiasis.She's c/o diffuse abd pain,nauseated at exam.Con't pain med,IVF,NPO.Ordered HIDA scan,consult general sx. -03/06/2022,HIDA scan was negative,avoid fried,fatty,greasy foods -03/07/2022,discussed dietary changes with her -03/08/2022,stable,con't clear liquid diet Assessment & Plan (03/07/2022 5:02 PM CDT): -POA,She presented to the ER with RLQ pain,emesis since evening prior to admission.She received IVF,pain med,antiemetic in the ER.CT showed fatty liver,possible cholelithiasis.She's c/o diffuse abd pain,nauseated at exam.Con't pain med,IVF,NPO.Ordered HIDA scan,consult general sx. -03/06/2022,HIDA scan was negative,avoid fried,fatty,greasy foods -03/07/2022,discussed dietary changes with her Assessment & Plan (03/06/2022 9:06 PM CDT): -POA,She presented to the ER with RLQ pain,emesis since evening prior to admission.She received IVF,pain med,antiemetic in the ER.CT showed fatty liver,possible cholelithiasis.She's c/o diffuse abd pain,nauseated at exam.Con't pain med,IVF,NPO.Ordered HIDA scan,consult general sx. -03/06/2022,HIDA scan was negative,avoid fried,fatty,greasy foods Assessment & Plan (03/05/2022 4:11 PM CDT): -POA,She presented to the ER with RLQ pain,emesis since evening prior to admission.She received IVF,pain med,antiemetic in the ER.CT showed fatty liver,possible cholelithiasis.She's c/o diffuse abd pain,nauseated at exam.Con't pain med,IVF,NPO.Ordered HIDA scan,consult general sx. COVID-19 12/09/2021 Assessment & Plan (08/01/2024 12:11 PM CDT): Self-isolate for 5 days from start of symptoms-you may end this quarantine at the end of 5 days as long as all symptoms are improving and you remain fever free for 24 hours without the use of medication such as Tylenol or ibuprofen. Please wear a mask when in public/around others for an additional 5 days. Increase fluid intake Over the counter cough suppressants such as Mucinex or Delsym recommended. I also recommend saline nasal rinses and/or deep breathing steam for congestion relief Tylenol every 8 hours as needed for fever or body aches recommended Report new or worsening symptoms Warning signs warranting immediate medical care: chest pain, trouble breathing, shortness of breath that does not improve with rest and taking deep breaths Will send medrol dose yeimi to patient pharmacy to help ease chest tightness and wheezing. If worsening symptoms recommend in person evaluation. Patient verbalized understanding and agreed to plan of care at this time. Assessment & Plan (12/28/2021 7:19 PM TIN WORKER): -12/24/2021,improving,c/o cough,nasal congestion,SOB with activity,use inhaler,con't promethazine with codeine. Assessment & Plan (12/13/2021 10:34 PM TIN WORKER): -12/09/2021,She's c/o weak,FRIEDMAN,SOB,cough,loss of taste and smell,con't to use inhaler,cough med,steroid.She was encouraged to hydrate. Vasculitis 03/24/2019 Assessment & Plan (07/09/2024 6:00 PM CDT): -06/10/2020,12/10/2020,Chronic-med mgt by rheumatology,needs to f/u with rheum. 03/24/2022,chronic,stable,followed by rheumatology. -09/21/2022,chronic,stable,followed by rheumatology. -12/08/2022,chronic,stable,followed by rheumatology. -07/05/2024,chronic,stable,followed by rheumatology. Assessment & Plan (01/02/2023 12:54 PM TIN WORKER): -06/10/2020,12/10/2020,Chronic-med mgt by rheumatology,needs to f/u with rheum. 03/24/2022,chronic,stable,followed by rheumatology. -09/21/2022,chronic,stable,followed by rheumatology. -12/08/2022,chronic,stable,followed by rheumatology. Assessment & Plan (10/01/2022 11:11 PM TIN WORKER): -06/10/2020,12/10/2020,Chronic-med mgt by rheumatology,needs to f/u with rheum. 03/24/2022,chronic,stable,followed by rheumatology. -09/21/2022,chronic,stable,followed by rheumatology. Assessment & Plan (03/29/2022 10:02 AM CDT): -06/10/2020,12/10/2020,Chronic-med mgt by rheumatology,needs to f/u with rheum. 03/24/2022,chronic,stable,followed by rheumatology. Assessment & Plan (12/31/2020 2:30 AM TIN WORKER): -06/10/2020,12/10/2020,Chronic-med mgt by rheumatology,needs to f/u with rheum. Assessment & Plan (06/16/2020 2:13 PM CDT): -05/31/2020,Chronic,con't plaquenil 200mg every day,med mgt by rheumatology. Assessment & Plan (06/14/2020 3:36 PM CDT): -06/10/2020,Chronic-med mgt by rheumatology,needs to f/u with rheum. Sjogren's syndrome 12/26/2018 Assessment & Plan (08/26/2024 10:36 PM CDT): -06/10/2020,12/10/2020,chronic,con't current med regimen,con't plaquenil 200mg daily -03/24/2022,chronic,stable,con't plaquenil 200mg daily,followed by rheumatology. -09/21/2022,chronic,stable,con't plaquenil 200mg daily,followed by rheumatology. -12/08/2022,chronic,stable,con't plaquenil 200mg daily,followed by rheumatology. -05/25/2023,chronic,stable,con't plaquenil 200mg daily,followed by rheumatology. -07/05/2024,chronic,stable,con't plaquenil 200mg daily,followed by rheumatology. -08/25/2024,chronic,stable,con't plaquenil 200mg daily,followed by rheumatology. Assessment & Plan (07/09/2024 6:00 PM CDT): -06/10/2020,12/10/2020,chronic,con't current med regimen,con't plaquenil 200mg daily -03/24/2022,chronic,stable,con't plaquenil 200mg daily,followed by rheumatology. -09/21/2022,chronic,stable,con't plaquenil 200mg daily,followed by rheumatology. -12/08/2022,chronic,stable,con't plaquenil 200mg daily,followed by rheumatology. -05/25/2023,chronic,stable,con't plaquenil 200mg daily,followed by rheumatology. -07/05/2024,chronic,stable,con't plaquenil 200mg daily,followed by rheumatology. Assessment & Plan (06/13/2023 10:44 AM CDT): -06/10/2020,12/10/2020,chronic,con't current med regimen,con't plaquenil 200mg daily -03/24/2022,chronic,stable,con't plaquenil 200mg daily,followed by rheumatology. -09/21/2022,chronic,stable,con't plaquenil 200mg daily,followed by rheumatology. -12/08/2022,chronic,stable,con't plaquenil 200mg daily,followed by rheumatology. -05/25/2023,chronic,stable,con't plaquenil 200mg daily,followed by rheumatology. Assessment & Plan (01/02/2023 12:53 PM TIN WORKER): -06/10/2020,12/10/2020,chronic,con't current med regimen,con't plaquenil 200mg daily -03/24/2022,chronic,stable,con't plaquenil 200mg daily,followed by rheumatology. -09/21/2022,chronic,stable,con't plaquenil 200mg daily,followed by rheumatology. -12/08/2022,chronic,stable,con't plaquenil 200mg daily,followed by rheumatology. Assessment & Plan (10/01/2022 11:13 PM TIN WORKER): -06/10/2020,12/10/2020,chronic,con't current med regimen,con't plaquenil 200mg daily -03/24/2022,chronic,stable,con't plaquenil 200mg daily,followed by rheumatology. -09/21/2022,chronic,stable,con't plaquenil 200mg daily,followed by rheumatology. Assessment & Plan (03/29/2022 10:03 AM CDT): -06/10/2020,12/10/2020,chronic,con't current med regimen,con't plaquenil 200mg daily -03/24/2022,chronic,stable,con't plaquenil 200mg daily,followed by rheumatology. Assessment & Plan (03/09/2022 8:31 PM CDT): -POA,chronic,con't plaquenil 200mg daily on HOLD NPO,followed by rheumatology. -03/06/2022,con't arava -03/07/2022,con't arava,followed by rheum -03/08/2022,con't arava -03/09/2022,con't arava,no change Assessment & Plan (03/08/2022 1:24 PM CDT): -POA,chronic,con't plaquenil 200mg daily on HOLD NPO,followed by rheumatology. -03/06/2022,con't arava -03/07/2022,con't arava,followed by rheum -03/08/2022,con't arava Assessment & Plan (03/07/2022 5:04 PM CDT): -POA,chronic,con't plaquenil 200mg daily on HOLD NPO,followed by rheumatology. -03/06/2022,con't arava -03/07/2022,con't arava,followed by rheum Assessment & Plan (03/06/2022 9:07 PM CDT): -POA,chronic,con't plaquenil 200mg daily on HOLD NPO,followed by rheumatology. -03/06/2022,con't arava Assessment & Plan (03/05/2022 4:14 PM CDT): -POA,chronic,con't plaquenil 200mg daily on HOLD NPO,followed by rheumatology. Assessment & Plan (12/26/2021 10:18 PM TIN WORKER): -POA,chronic,con't current med regimen,con't plaquenil 200mg daily,followed by rheumatology. Assessment & Plan (12/31/2020 2:29 AM TIN WORKER): -06/10/2020,12/10/2020,chronic,con't current med regimen,con't plaquenil 200mg daily Assessment & Plan (06/16/2020 2:11 PM CDT): -05/31/2020,chronic,con't current med regimen,plaquenil 200mg every day Assessment & Plan (06/14/2020 3:34 PM CDT): -06/10/2020,chronic,con't current med regimen,con't plaquenil 200mg daily Assessment & Plan (02/19/2019 10:29 PM CDT): -chronic,con't current med regimen Assessment & Plan (12/26/2018 4:58 AM TIN WORKER): +SS-A in 2016 - refresh eye gtts, biotene PRN Anxiety and depression 12/26/2018 Assessment & Plan (08/26/2024 10:27 PM CDT): -05/25/2023,chronic,unchanged,con't elavil,buspar,was encouraged to maintain a regular cardiovascular exercise program. -03/10/2024,chronic,unchanged,con't elavil,buspar,maintain a regular cardiovascular exercise program.She denies SI/HI,encouraged counseling. -07/05/2024,chronic,unchanged,con't elavil,buspar,maintain a regular cardiovascular exercise program.She denies SI/HI,encouraged counseling. -08/25/2024,chronic,worse,She wants time off work,wants off for 4wks off,having CP off and on,stressed at home,having difficulty focusing,concentrating at work,difficulty working with coworkers.Con't elavil,buspar,maintain a regular cardiovascular exercise program.She denies SI/HI,encouraged counseling. Assessment & Plan (07/09/2024 6:11 PM CDT): -05/25/2023,chronic,unchanged,con't elavil,buspar,was encouraged to maintain a regular cardiovascular exercise program. -03/10/2024,chronic,unchanged,con't elavil,buspar,maintain a regular cardiovascular exercise program.She denies SI/HI,encouraged counseling. -07/05/2024,chronic,unchanged,con't elavil,buspar,maintain a regular cardiovascular exercise program.She denies SI/HI,encouraged counseling. Assessment & Plan (03/31/2024 12:47 PM CDT): Chronic, stable. Continue Buspar and amitriptyline. Assessment & Plan (03/18/2024 11:09 PM CDT): -05/25/2023,chronic,unchanged,con't elavil,buspar,was encouraged to maintain a regular cardiovascular exercise program. -03/10/2024,chronic,unchanged,con't elavil,buspar,maintain a regular cardiovascular exercise program.She denies SI/HI,encouraged counseling. Assessment & Plan (03/03/2024 2:11 PM CDT): Chronic, worsening since returning to work. She had been working from home. Increase buspar to 7.5mg TID. Reports sleep has been an issue, trouble falling asleep. Increase amitriptyline 50mg nightly. Assessment & Plan (06/13/2023 10:55 AM CDT): -05/25/2023,chronic,unchanged,con't elavil,buspar,was encouraged to maintain a regular cardiovascular exercise program. Assessment & Plan (01/01/2019 4:54 PM TIN WORKER): - continue Cymbalta 30 bid Assessment & Plan (12/26/2018 4:59 AM TIN WORKER): cont duloxetine, ativan PRN Calcaneal spur of right foot 06/24/2018 Assessment & Plan (10/01/2022 11:16 PM TIN WORKER): -09/21/2022,chronic,stable,wear heel insert. Assessment & Plan (12/31/2020 2:29 AM TIN WORKER): -06/10/2020,12/10/2020,chronic,wear inserts daily Assessment & Plan (06/16/2020 1:54 PM CDT): -05/31/2020,chronic,wear inserts in all shoes. Assessment & Plan (06/14/2020 3:22 PM CDT): -06/10/2020,chronic,wear inserts daily Assessment & Plan (06/24/2018 8:59 AM CDT): -as above Irritable bowel syndrome wit h both constipation and diarrhea 04/12/2018 Assessment & Plan (06/13/2023 10:48 AM CDT): -Symptomatic-con't current txs. -06/10/2020,12/10/2020,chronic,improved with diet changes. -03/24/2022,chronic,stable,con't diet changes. -09/21/2022,chronic,stable,con't diet changes. -05/25/2023,chronic,stable,con't diet changes. Assessment & Plan (10/01/2022 11:03 PM TIN WORKER): -Symptomatic-con't current txs. -06/10/2020,12/10/2020,chronic,improved with diet changes. -03/24/2022,chronic,stable,con't diet changes. -09/21/2022,chronic,stable,con't diet changes. Assessment & Plan (03/29/2022 9:57 AM CDT): -Symptomatic-con't current txs. -06/10/2020,12/10/2020,chronic,improved with diet changes. -03/24/2022,chronic,stable,con't diet changes. Assessment & Plan (12/31/2020 2:28 AM TIN WORKER): -Symptomatic-con't current txs. -06/10/2020,12/10/2020,chronic,improved with diet changes. Assessment & Plan (06/16/2020 1:57 PM CDT): -05/31/2020,chronic,con't current txs,increase fluids. Assessment & Plan (06/14/2020 3:27 PM CDT): -Symptomatic-con't current txs. -06/10/2020,chronic,improved with diet changes. Assessment & Plan (12/11/2018 8:20 PM TIN WORKER): Symptomatic-con't current txs. Assessment & Plan (05/13/2018 9:54 PM CDT): Symptomatic-she was given samples of amitiza.con't current txs. 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 -03/24/2022,chronic,con't plaquenil,followed by rheumatology. -04/21/2022,chronic,unchanged,percocet 5/325#120,followed by rheumatology. -09/21/2022,chronic,unchanged,percocet 5/325#120,followed by rheumatology. -12/08/2022,chronic,unchanged,percocet 5/325#120,followed by rheumatology. -05/25/2023,chronic,unchanged,followed by rheumatology. -07/05/2024,chronic,unchanged,followed by rheumatology. -08/25/2024,chronic,unchanged,followed by rheumatology. Assessment & Plan (07/09/2024 6:03 PM CDT): -06/10/2020,12/10/2020,Chronic-med mgt by rheumatology. -03/24/2022,chronic,con't plaquenil,followed by rheumatology. -04/21/2022,chronic,unchanged,percocet 5/325#120,followed by rheumatology. -09/21/2022,chronic,unchanged,percocet 5/325#120,followed by rheumatology. -12/08/2022,chronic,unchanged,percocet 5/325#120,followed by rheumatology. -05/25/2023,chronic,unchanged,followed by rheumatology. -07/05/2024,chronic,unchanged,followed by rheumatology. Assessment & Plan (06/13/2023 10:48 AM CDT): -06/10/2020,12/10/2020,Chronic-med mgt by rheumatology. -03/24/2022,chronic,con't plaquenil,followed by rheumatology. -04/21/2022,chronic,unchanged,percocet 5/325#120,followed by rheumatology. -09/21/2022,chronic,unchanged,percocet 5/325#120,followed by rheumatology. -12/08/2022,chronic,unchanged,percocet 5/325#120,followed by rheumatology. -05/25/2023,chronic,unchanged,followed by rheumatology. Assessment & Plan (01/02/2023 12:53 PM TIN WORKER): -06/10/2020,12/10/2020,Chronic-med mgt by rheumatology. -03/24/2022,chronic,con't plaquenil,followed by rheumatology. -04/21/2022,chronic,unchanged,percocet 5/325#120,followed by rheumatology. -09/21/2022,chronic,unchanged,percocet 5/325#120,followed by rheumatology. -12/08/2022,chronic,unchanged,percocet 5/325#120,followed by rheumatology. Assessment & Plan (10/01/2022 11:12 PM TIN WORKER): -06/10/2020,12/10/2020,Chronic-med mgt by rheumatology. -03/24/2022,chronic,con't plaquenil,followed by rheumatology. -04/21/2022,chronic,unchanged,percocet 5/325#120,followed by rheumatology. -09/21/2022,chronic,unchanged,percocet 5/325#120,followed by rheumatology. Assessment & Plan (05/02/2022 10:03 PM CDT):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 changes. -03/24/2022,Chronic,stable,discussed sleep hygiene changes. -09/21/2022,Chronic,stable,discussed sleep hygiene changes. -12/08/2022,Chronic,stable,discussed sleep hygiene changes. -05/25/2023,Chronic,stable,con't ambien,discussed sleep hygiene changes. -07/05/2024,Chronic,stable,con't ambien,discussed sleep hygiene changes. -08/25/2024,Chronic,stable,con't ambien,encouraged sleep hygiene. Assessment & Plan (07/09/2024 6:01 PM CDT): -06/10/2020,12/10/2020,Chronic-improving with sleep hygiene changes. -03/24/2022,Chronic,stable,discussed sleep hygiene changes. -09/21/2022,Chronic,stable,discussed sleep hygiene changes. -12/08/2022,Chronic,stable,discussed sleep hygiene changes. -05/25/2023,Chronic,stable,con't ambien,discussed sleep hygiene changes. -07/05/2024,Chronic,stable,con't ambien,discussed sleep hygiene changes. Assessment & Plan (06/13/2023 10:45 AM CDT): -06/10/2020,12/10/2020,Chronic-improving with sleep hygiene changes. -03/24/2022,Chronic,stable,discussed sleep hygiene changes. -09/21/2022,Chronic,stable,discussed sleep hygiene changes. -12/08/2022,Chronic,stable,discussed sleep hygiene changes. -05/25/2023,Chronic,stable,con't ambien,discussed sleep hygiene changes. Assessment & Plan (01/02/2023 12:57 PM TIN WORKER): -06/10/2020,12/10/2020,Chronic-improving with sleep hygiene changes. -03/24/2022,Chronic,stable,discussed sleep hygiene changes. -09/21/2022,Chronic,stable,discussed sleep hygiene changes. -12/08/2022,Chronic,stable,discussed sleep hygiene changes. Assessment & Plan (10/01/2022 11:18 PM TIN WORKER): -06/10/2020,12/10/2020,Chronic-improving with sleep hygiene changes. -03/24/2022,Chronic,stable,discussed sleep hygiene changes. -09/21/2022,Chronic,stable,discussed sleep hygiene changes. Assessment & Plan (03/29/2022 10:07 AM CDT): -06/10/2020,12/10/2020,Chronic-improving with sleep hygiene changes. -03/24/2022,Chronic,stable,discussed sleep hygiene changes. Assessment & Plan (12/26/2021 10:15 PM TIN WORKER): -POA,Chronic-improving with sleep hygiene changes. Assessment & Plan (12/31/2020 2:25 AM TIN WORKER): -06/10/2020,12/10/2020,Chronic-improving with sleep hygiene changes. Assessment & Plan (06/16/2020 1:56 PM CDT): -05/31/2020,Chronic-improving with sleep hygiene changes. Assessment & Plan (06/14/2020 3:26 PM CDT): -06/10/2020,Chronic-improving with sleep hygiene changes. Assessment & Plan (12/11/2018 8:25 PM TIN WORKER): Chronic-improving with sleep hygiene changes,con't ambien. Assessment & Plan (07/18/2018 11:39 AM CDT): Chronic-improving with sleep hygiene changes Assessment & Plan (04/12/2018 1:19 PM CDT): Chronic-improving with sleep hygiene changes Mild persistent asthma without complication 07/16 Overview (02/19/2017): Asthma Assessment & Plan (08/26/2024 10:33 PM CDT): -06/10/2020,12/10/2020,chronic,Asthma is improving with treatment.con't albuterol. The patient is experiencing frequent daytime asthma symptoms. She is experiencing frequent nighttime asthma symptoms. Discussed monitoring symptoms and use of quick-relief medications and contacting us early in the course of exacerbations. Warning signs of respiratory distress were reviewed with the patient. Counseled to void exposure to cigarette smoke. -03/24/2022,chronic,stable,use albuterol prn. -09/21/2022,chronic,stable,use albuterol prn. -05/25/2023,chronic,stable,use albuterol prn. -07/05/2024,,chronic,stable,use albuterol prn. -08/25/2024,chronic,stable,use albuterol prn. Assessment & Plan (07/09/2024 6:02 PM CDT): -06/10/2020,12/10/2020,chronic,Asthma is improving with treatment.con't albuterol. The patient is experiencing frequent daytime asthma symptoms. She is experiencing frequent nighttime asthma symptoms. Discussed monitoring symptoms and use of quick-relief medications and contacting us early in the course of exacerbations. Warning signs of respiratory distress were reviewed with the patient. Counseled to void exposure to cigarette smoke. -03/24/2022,chronic,stable,use albuterol prn. -09/21/2022,chronic,stable,use albuterol prn. -05/25/2023,chronic,stable,use albuterol prn. -07/05/2024,,chronic,stable,use albuterol prn. Assessment & Plan (06/13/2023 10:45 AM CDT): -06/10/2020,12/10/2020,chronic,Asthma is improving with treatment.con't albuterol. The patient is experiencing frequent daytime asthma symptoms. She is experiencing frequent nighttime asthma symptoms. Discussed monitoring symptoms and use of quick-relief medications and contacting us early in the course of exacerbations. Warning signs of respiratory distress were reviewed with the patient. Counseled to void exposure to cigarette smoke. -03/24/2022,chronic,stable,use albuterol prn. -09/21/2022,chronic,stable,use albuterol prn. -05/25/2023,chronic,stable,use albuterol prn. Assessment & Plan (10/01/2022 11:17 PM TIN WORKER): -06/10/2020,12/10/2020,chronic,Asthma is improving with treatment.con't albuterol. The patient is experiencing frequent daytime asthma symptoms. She is experiencing frequent nighttime asthma symptoms. Discussed monitoring symptoms and use of quick-relief medications and contacting us early in the course of exacerbations. Warning signs of respiratory distress were reviewed with the patient. Counseled to void exposure to cigarette smoke. -03/24/2022,chronic,stable,use albuterol prn. -09/21/2022,chronic,stable,use albuterol prn. Assessment & Plan (03/29/2022 10:06 AM CDT): -06/10/2020,12/10/2020,chronic,Asthma is improving with treatment.con't albuterol. The patient is experiencing frequent daytime asthma symptoms. She is experiencing frequent nighttime asthma symptoms. Discussed monitoring symptoms and use of quick-relief medications and contacting us early in the course of exacerbations. Warning signs of respiratory distress were reviewed with the patient. Counseled to void exposure to cigarette smoke. -03/24/2022,chronic,stable,use albuterol prn. Assessment & Plan (03/09/2022 8:31 PM CDT): -POA,chronic,stable,con't albuterol prn. -03/06/2022,con't alb prn -03/07/2022,stable -03/08/2022,stable -03/09/2022,stable,no change Assessment & Plan (03/08/2022 1:23 PM CDT): -POA,chronic,stable,con't albuterol prn. -03/06/2022,con't alb prn -03/07/2022,stable -03/08/2022,stable Assessment & Plan (03/07/2022 5:03 PM CDT): -POA,chronic,stable,con't albuterol prn. -03/06/2022,con't alb prn -03/07/2022,stable Assessment & Plan (03/06/2022 9:07 PM CDT): -POA,chronic,stable,con't albuterol prn. -03/06/2022,con't alb prn Assessment & Plan (03/05/2022 4:13 PM CDT): -POA,chronic,stable,con't albuterol prn. Assessment & Plan (12/26/2021 10:16 PM TIN WORKER): -POA,chronic,stable,con't albuterol prn. The patient is experiencing frequent daytime asthma symptoms. She is experiencing frequent nighttime asthma symptoms. Discussed monitoring symptoms and use of quick-relief medications and contacting us early in the course of exacerbations. Warning signs of respiratory distress were reviewed with the patient. Counseled to void exposure to cigarette smoke. Assessment & Plan (12/31/2020 2:25 AM TIN WORKER): -06/10/2020,12/10/2020,chronic,Asthma is improving with treatment.con't albuterol. The patient is experiencing frequent daytime asthma symptoms. She is experiencing frequent nighttime asthma symptoms. Discussed monitoring symptoms and use of quick-relief medications and contacting us early in the course of exacerbations. Warning signs of respiratory distress were reviewed with the patient. Counseled to void exposure to cigarette smoke. Assessment & Plan (06/16/2020 2:00 PM CDT): -05/31/2020,chronic,Asthma is improving with treatment The patient is experiencing frequent daytime asthma symptoms. She is experiencing frequent nighttime asthma symptoms. Discussed monitoring symptoms and use of quick-relief medications and contacting us early in the course of exacerbations. Warning signs of respiratory distress were reviewed with the patient. Counseled to void exposure to cigarette smoke. Assessment & Plan (06/14/2020 3:30 PM CDT): -06/10/2020,chronic,Asthma is improving with treatment.con't albuterol. The patient is experiencing frequent daytime asthma symptoms. She is experiencing frequent nighttime asthma symptoms. Discussed monitoring symptoms and use of quick-relief medications and contacting us early in the course of exacerbations. Warning signs of respiratory distress were reviewed with the patient. Counseled to void exposure to cigarette smoke. Assessment & Plan (02/19/2019 10:30 PM CDT): Asthma is improving with treatment.con't prednisone. The patient is experiencing frequent daytime asthma symptoms. She is experiencing frequent nighttime asthma symptoms. Discussed monitoring symptoms and use of quick-relief medications and contacting us early in the course of exacerbations. Warning signs of respiratory distress were reviewed with the patient. Counseled to void exposure to cigarette smoke. Assessment & Plan (12/26/2018 4:59 AM TIN WORKER): cont albuterol PRN Assessment & Plan (12/11/2018 8:20 PM TIN WORKER): Asthma is improving with treatment.con't prednisone. The patient is experiencing frequent daytime asthma symptoms. She is experiencing frequent nighttime asthma symptoms. Discussed monitoring symptoms and use of quick-relief medications and contacting us early in the course of exacerbations. Warning signs of respiratory distress were reviewed with the patient. Counseled to void exposure to cigarette smoke. Assessment & Plan (07/18/2018 11:37 AM CDT): Asthma is improving with treatment.con't prednisone The patient is experiencing frequent daytime asthma symptoms. She is experiencing frequent nighttime asthma symptoms. Discussed monitoring symptoms and use of quick-relief medications and contacting us early in the course of exacerbations. Warning signs of respiratory distress were reviewed with the patient. Counseled to void exposure to cigarette smoke. Assessment & Plan (06/24/2018 8:57 AM CDT): Asthma is worsening. The patient is experiencing frequent daytime asthma symptoms. She is experiencing frequent nighttime asthma symptoms. Discussed monitoring symptoms and use of quick-relief medications and contacting us early in the course of exacerbations. Warning signs of respiratory distress were reviewed with the patient. Counseled to void exposure to cigarette smoke. Medications: begin advair 500/50. Assessment & Plan (04/12/2018 1:22 PM CDT): Asthma is improving with lifestyle modifications. The patient is experiencing frequent daytime asthma symptoms. She is experiencing frequent nighttime asthma symptoms. Discussed monitoring symptoms and use of quick-relief medications and contacting us early in the course of exacerbations. Warning signs of respiratory distress were reviewed with the patient. Counseled to void exposure to cigarette smoke. Assessment & Plan (09/24/2017 8:54 AM TIN WORKER): Asthma is improving with treatment.given samples of breo. The patient is experiencing frequent daytime asthma symptoms. She is experiencing frequent nighttime asthma symptoms. Discussed monitoring symptoms and use of quick-relief medications and contacting us early in the course of exacerbations. Other chest pain Assessment & Plan (08/26/2024 10:34 PM CDT): -08/25/2024,Chest pain noncardiac,most likely depression related,con't depression meds. Resolved Problems Problem Noted Date Diagnosed Date Resolved Date Closed nondisplaced fracture of left calcaneus with routine healing 03/31/2024 Assessment & Plan (03/31/2024 1:05 PM CDT): Acute, reports she fell this past Wednesday running to the car. She was seen in urgent care and diagnosed with left calcaneal fracture. Unable to get into orthopedics. Foot and heel are swollen and tender to palpation. Check x-rays of foot. Continue percocet as prescribed. Refer to orthopedics. Recommend Rest, ice, compression, and elevation until seen by ortho. Extremity timothy wrapped in office. Right ear pain 07/12/2023 01/06/2024 Assessment & Plan (07/12/2023 8:38 AM CDT): Acute, reports pain started a couple weeks ago. No evidence of infection. Start zyrtec or jessi. Hospital discharge follow-up 01/02/2023 01/06/2023 Acute ischemic stroke 10/27/20222022 Assessment & Plan (02/12/2023 7:06 PM CDT): -12/08/2022,She's in physical therapy through end december has difficulty with memory,has right sided weakness.COMPLETED DISABILITY FORMS FOR PT,f/u in 4 weeks. -01/06/2023,Improved,She's worked with PT,wants to return to work Wednesday,December. Assessment & Plan (01/02/2023 12:56 PM TIN WORKER): -12/08/2022,She's in physical therapy through end december has difficulty with memory,has right sided weakness.COMPLETED DISABILITY FORMS FOR PT,f/u in 4 weeks. AMS (altered mental status) 10/22/2022 12/08/2022 Hyperglycemia 09/21/2022 12/08/2022 Chest pain 12/26/2021 12/27/2021 Assessment & Plan (12/26/2021 10:12 PM TIN WORKER): -POA,She presented to the ED c/o pain radiating to her left arm and neck.Echo was unremarkable as well as stress today.She's c/o midsternal pain at exam,no associated sxs.Pain is not reproducible.Possibly GI related,HH.Con't PPI,consult GI. Chest pain, unspecified type 12/26/2021 12/26/2021 Cellulitis of left lower extremity 12/24/2021 03/05/2022 Assessment & Plan (12/28/2021 7:20 PM TIN WORKER): -12/24/2021,Rash on leg for several months,start ceftin 500mg bid x10d. Assessment & Plan (12/26/2021 10:10 PM TIN WORKER): -POA,She states rash has been present on her leg for several months,photos taken by pt showed erythematous area not present at exam.She was prescribed ceftin outpt.She's on zosyn IV,venous doppler was negative. Primary hypertension 01/29/2021 023 Assessment & Plan (04/20/2023 10:39 AM CDT): Chronic, BP 142/80. On arrival 158/110. Reports anxiety is causing it to worsen. Continue amlodpine and lisinopril. Start propranolol 10mg BID for anti-anxiety effects, as well as BP effects. Assessment & Plan (01/02/2023 12:49 PM TIN WORKER): -03/24/2022,chronic,BP 118/84,stable,con't norvasc 5mg daily,lisinopril 5mg daily,low salt diet,was encouraged to maintain a regular cardiovascular exercise program. -09/21/2022,chronic,BP 130/84,stable,con't norvasc 5mg daily,lisinopril 5mg daily,low salt diet,was encouraged to maintain a regular cardiovascular exercise program. -12/08/2022,chronic,BP 130/82,stable,con't norvasc 5mg daily,lisinopril 5mg daily,low salt diet,was encouraged to maintain a regular cardiovascular exercise program. Assessment & Plan (10/01/2022 10:59 PM TIN WORKER): -03/24/2022,chronic,BP 118/84,stable,con't norvasc 5mg daily,lisinopril 5mg daily,low salt diet,was encouraged to maintain a regular cardiovascular exercise program. -09/21/2022,chronic,BP 130/84,stable,con't norvasc 5mg daily,lisinopril 5mg daily,low salt diet,was encouraged to maintain a regular cardiovascular exercise program. Assessment & Plan (03/29/2022 9:55 AM CDT): -03/24/2022,chronic,BP 118/84,stable,con't norvasc 5mg daily,lisinopril 5mg daily,low salt diet,was encouraged to maintain a regular cardiovascular exercise program. Assessment & Plan (03/09/2022 8:31 PM CDT): -POA,chronic,BP 131/84,stable,HOLD con't norvasc 5mg daily,lisinopril 10mg daily,NPO for now. -03/06/2022,con't norvasc,lisinopril,clear liquid diet -03/07/2022,BP 154/95,con't norvasc,lisinopril -03/08/2022,BP 133/70,stable,con't norvasc 5mg daily,lisinopril 10mg daily,low salt diet -03/09/2022,con't norvasc,lisinopril,low salt diet Assessment & Plan (03/08/2022 1:23 PM CDT): -POA,chronic,BP 131/84,stable,HOLD con't norvasc 5mg daily,lisinopril 10mg daily,NPO for now. -03/06/2022,con't norvasc,lisinopril,clear liquid diet -03/07/2022,BP 154/95,con't norvasc,lisinopril -03/08/2022,BP 133/70,stable,con't norvasc 5mg daily,lisinopril 10mg daily,low salt diet Assessment & Plan (03/07/2022 5:03 PM CDT): -POA,chronic,BP 131/84,stable,HOLD con't norvasc 5mg daily,lisinopril 10mg daily,NPO for now. -03/06/2022,con't norvasc,lisinopril,clear liquid diet -03/07/2022,BP 154/95,con't norvasc,lisinopril Assessment & Plan (03/06/2022 9:06 PM CDT): -POA,chronic,BP 131/84,stable,HOLD con't norvasc 5mg daily,lisinopril 10mg daily,NPO for now. -03/06/2022,con't norvasc,lisinopril,clear liquid diet Assessment & Plan (03/05/2022 4:12 PM CDT): -POA,chronic,BP 131/84,stable,HOLD con't norvasc 5mg daily,lisinopril 10mg daily,NPO for now. Assessment & Plan (12/26/2021 10:14 PM TIN WORKER): -POA,chronic,BP 145/91,stable,con't norvasc 5mg daily,lisinopril 10mg daily,low salt diet. Chronic jaw pain 12/10/2020 03/29/2022 Assessment & Plan (12/31/2020 2:32 AM TIN WORKER): -12/10/2020,most likely TMJ Dysfunction,wear mouthgard Refractive error 08/08/2020 03/29/2022 Assessment & Plan (12/31/2020 2:31 AM TIN WORKER): -12/10/2020,stable Chronic sialoadenitis 06/28/20202021 Assessment & Plan (12/31/2020 2:31 AM TIN WORKER): -12/10/2020,chronic,stable Submandibular sialoadenitis 06/28/2020 03/29/2022 Assessment & Plan (12/31/2020 2:31 AM TIN WORKER): -12/10/2020,chronic,stable Chronic parotitis 06/27/2020 03/29/2022 Assessment & Plan (12/31/2020 2:30 AM TIN WORKER): -12/10/2020,chronic,stable Annual physical exam 05/31/2020 024 Assessment & Plan (07/09/2024 6:11 PM CDT): -07/05/2024,Exam completed. Assessment & Plan (06/13/2023 10:55 AM CDT): -05/25/2023,Exam done. Assessment & Plan (03/29/2022 10:09 AM CDT): -03/24/2022,Exam done. Assessment & Plan (06/16/2020 1:52 PM CDT): -05/31/2020,exam done Assessment & Plan (06/14/2020 3:20 PM CDT): -06/10/2020,exam done Screening mammogram, encounter for 05/31/2020 06/10/2020 Dai 02/08/2019 05/31/2020 Overview (02/08/2019): Added automatically from request for surgery [id number] Assessment & Plan (02/19/2019 10:34 PM CDT): -Recurrent,unclear etiology,f/u with GI Visit for suture removal 01/21/2019 Assessment & Plan (01/21/2019 10:35 PM TIN WORKER): -removed 1 suture from left lateral thigh post biopsy Polyp of cecum 01/20/2019 06/14/2020 Assessment & Plan (01/20/2019 4:11 PM TIN WORKER): -hx,removed on colonoscopy Hematochezia 01/01/2019 05/31/2020 Assessment & Plan (02/19/2019 10:31 PM CDT): -unremarkable colonoscopy Assessment & Plan (01/21/2019 10:22 PM TIN WORKER): -unremarkable colonoscopy Assessment & Plan (01/04/2019 6:34 PM TIN WORKER): - 2/2 colitis -one bloody bm yesterdaynone today - stable hb - Monitor serial CBC. - Denies any upper GI complaints. No indication for PPI BID Assessment & Plan (01/03/2019 5:11 PM TIN WORKER): - 2/2 colitis - stable hb - Monitor serial CBC. - Denies any upper GI complaints. 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 No bleeding now and has stable hgb - Monitor serial CBC. - Denies any upper GI complaints. No indication for PPI BID Colitis 12/28/2018 05/31/2020 Assessment & Plan (02/19/2019 10:31 PM CDT): -chronic,followed by GI Assessment & Plan (01/21/2019 10:22 PM TIN WORKER): -acute,start cipro,flagyl Assessment & Plan (01/04/2019 6:38 PM TIN WORKER): - seems inflammatory than infectious. Still some mild abdominal pain - has normal complements which makes lupus colitis unlikely. No findings of mesenteric ischemia on CT, no hypotension, and has normal lactate -dw radiology reg all 3 ct - more inflammatory on radiology -path report with no definite conclusion , dw GI- plan for prep and scope tomorrow - Recent hx of colitis treated with cipro/Flagyl ending 12/23 with no significant improvement. Previous stool CMV negative, stool cultures negative, c diff negative. - Repeat stool studies and cultures ngtd -underwent flex sig - asked path to review for cmv , no e/o vasculitis or IBD per pathology - given clinical stability, holding off on abx now. Assessment & Plan (01/03/2019 5:10 PM TIN WORKER): - seems inflammatory than infectious. Had one bloody stool today , pain improved. - has normal complements which makes lupus colitis unlikely. No findings of mesenteric ischemia on CT, no hypotension, and has normal lactate - Recent hx of colitis treated with cipro/Flagyl ending 12/23 with no significant improvement. Previous stool CMV negative, stool cultures negative, c diff negative. - Repeat stool studies and cultures ngtd -underwent flex sig - biopsy pending but prelim with no e/o IBD per path awaiting final path review, asked to review for vasculitis - given clinical stability, holding off on abx now. Assessment & Plan (01/02/2019 3:40 PM TIN WORKER): - seems inflammatory than infectious. - has normal complements which makes lupus colitis unlikely. No findings of mesenteric ischemia on CT, no hypotension, and has normal lactate - Recent hx of colitis treated with cipro/Flagyl ending 12/23 with no significant improvement. Previous stool CMV negative, stool cultures negative, c diff negative. - Repeat stool studies and cultures ngtd -underwent flex sig today-advance diet and monitor, no more bleeding per report. - given clinical stability, holding off on abx now. Right leg weakness 12/28/2018 2 Assessment & Plan (12/31/2020 2:29 AM TIN WORKER): -06/10/2020,12/10/2020,chronic,con't current medication regimen. Assessment & Plan (06/16/2020 2:03 PM CDT): -05/31/2020,chronic,con't current med regimen. Assessment & Plan (06/14/2020 3:33 PM CDT): -06/10/2020,chronic,con't current medication regimen. Bloody diarrhea 12/26/2018 12/28/2018 Assessment & Plan (12/26/2018 4:56 AM TIN WORKER): Lactate, lipase wnl. ESR elevated to 28, CRP wnl. CT A/P with resolving diverticulitis. DDx infectious colitis, IBD; related to lupus flare such as mesenteric vasculitis, primary peritonitis; less likely malignancy. - f/u C Diff, stool cx, CMV - trend CBC, check stool guaiac - GI consult for possible colonoscopy; CLD - Rheum consult as below - antiemetics PRN, pain control with tylenol Diplopia 12/26/2018 12/28/2018 Assessment & Plan (12/26/2018 4:57 AM TIN WORKER): Ongoing x 1 month, no eye pain or blurry vision. EOMI. Possible transient diplopia 2/2 SLE. - CTM, consider ophtho c/s if does not resolve Anxiety 07/06/2018 05/25/2023 Assessment & Plan (05/04/2023 9:40 AM CDT): Chronic, improving. Unable to take ativan TID due to work scheduled. Continue buspar 5mg TID and propranolol 10mg BID. Close follow-up. Encouraged to make appointment with counselor. Assessment & Plan (04/20/2023 10:31 AM CDT): Chronic, worsening. Unable to take ativan TID due to work scheduled. Will start buspar 5mg TID and propranolol 10mg BID. Close follow-up. Encouraged to make appointment with counselor. Assessment & Plan (10/01/2022 11:10 PM TIN WORKER): -06/10/2020,12/10/2020,chronic,con't cymbalta 30mg every day.Psychological condition is improving with lifestyle modifications. Continue current treatment regimen. Psychological condition will be reassessed at the next regular appointment. -03/24/2022,chronic,stable,con't cymbalta 30mg every day. -04/21/2022,chronic,stable,con't cymbalta 30mg every day. -06/10/2022,chronic,stable,con't cymbalta 30mg every day. -09/21/2022,chronic,stable,con't cymbalta 30mg every day. Assessment & Plan (07/02/2022 10:00 PM CDT): -06/10/2020,12/10/2020,chronic,con't cymbalta 30mg every day.Psychological condition is improving with lifestyle modifications. Continue current treatment regimen. Psychological condition will be reassessed at the next regular appointment. -03/24/2022,chronic,stable,con't cymbalta 30mg every day. -04/21/2022,chronic,stable,con't cymbalta 30mg every day. -06/10/2022,chronic,stable,con't cymbalta 30mg every day,m.. Assessment & Plan (03/29/2022 10:01 AM CDT): -06/10/2020,12/10/2020,chronic,con't cymbalta 30mg every day.Psychological condition is improving with lifestyle modifications. Continue current treatment regimen. Psychological condition will be reassessed at the next regular appointment. -03/24/2022,chronic,stable,con't cymbalta 30mg every day. Assessment & Plan (12/31/2020 2:29 AM TIN WORKER): -06/10/2020,12/10/2020,chronic,worse,con't cymbalta 30mg every day. Assessment & Plan (06/16/2020 1:52 PM CDT): -05/31/2020,chronic,con't cymbalta 30mg qd. Assessment & Plan (06/14/2020 3:21 PM CDT): -06/10/2020,chronic,worse,con't cymbalta 30mg every day. Assessment & Plan (02/19/2019 10:32 PM CDT): -chronic,worse,con't ativan. Assessment & Plan (12/11/2018 8:26 PM TIN WORKER): -chronic,worse,con't ativan. Assessment & Plan (07/18/2018 11:38 AM CDT): -chronic,worse,start ativan Heel spur 06/24/2018 11/29/2018 Assessment & Plan (06/24/2018 8:59 AM CDT): -symptomatic,start naproxen,wear inserts in all shoes,refer to podiatry, BMI 30.0-30.9,adult 04/13/2018 01/22/20 19 Assessment & Plan (12/11/2018 8:25 PM TIN WORKER): Obesity-improving with lifestyle changes. Discussed the patient's BMI. The BMI is above average; BMI management plan is completed. Informal exercise measures discussed, e.g. taking stairs instead of elevator. Regular aerobic exercise program discussed. Assessment & Plan (07/18/2018 11:39 AM CDT): Obesity-improving with lifestyle changes. Discussed the patient's BMI. The BMI is above average; BMI management plan is completed. Informal exercise measures discussed, e.g. taking stairs instead of elevator. Regular aerobic exercise program discussed. Assessment & Plan (06/24/2018 8:59 AM CDT): Obesity-improving with lifestyle changes. Discussed the patient's BMI. The BMI is above average; BMI management plan is completed. Informal exercise measures discussed, e.g. taking stairs instead of elevator. Regular aerobic exercise program discussed. Assessment & Plan (05/13/2018 9:58 PM CDT): Obesity-improving with lifestyle changes. Discussed the patient's BMI. The BMI is above average; BMI management plan is completed. Informal exercise measures discussed, e.g. taking stairs instead of elevator. Regular aerobic exercise program discussed. Assessment & Plan (04/13/2018 6:23 PM CDT): Obesity-improving with lifestyle changes. Discussed the patient's BMI. The BMI is above average; BMI management plan is completed. Informal exercise measures discussed, e.g. taking stairs instead of elevator. Regular aerobic exercise program discussed. Acute cystitis without hematuria 04/12/2018 05/13/2018 Assessment & Plan (04/12/2018 1:22 PM CDT): Recurrent-start bactrim,increase fluid intake Acute non-recurrent pansinusitis 10/04/2017 04/12/2018 Assessment & Plan (10/04/2017 6:53 PM TIN WORKER): Acute-symptomatic,start ceftin,flonase,increase water intake Acute pharyngitis due to oth er specified organisms 10/04/2017 04/12/2018 Assessment & Plan (10/04/2017 6:54 PM TIN WORKER): Acute-start ceftin Obesity (BMI 30-39.9) 10/04/20172017 Assessment & Plan (10/09/2017 11:27 AM TIN WORKER): Obesity is improving with lifestyle modifications. Discussed the patient's BMI. The BMI is above average; BMI management plan is completed. Informal exercise measures discussed, e.g. taking stairs instead of elevator. Regular aerobic exercise program discussed. Assessment & Plan (10/04/2017 6:55 PM TIN WORKER): Obesity is unchanged. Discussed the patient's BMI. The BMI is above average; BMI management plan is completed. Informal exercise measures discussed, e.g. taking stairs instead of elevator. Regular aerobic exercise program discussed. MCTD (mixed connective tissue disease) 08/26/2017 09/24/2017 Anemia 08/26/2017 06/13/2023 Assessment & Plan (10/01/2022 11:06 PM TIN WORKER): -06/10/2020,12/10/2020,chronic,con't supplement. -03/24/2022,chronic,stable,con't supplement. -09/21/2022,chronic,stable,con't supplement. Lab Results Component Value Date WBC 4.4 08/03/2022 HGB 11.4 (L) 08/03/2022 HCT 36.1 08/03/2022 MCV 91.2 08/03/2022 LABPLAT 231 08/03/2022 Assessment & Plan (03/29/2022 10:00 AM CDT): -06/10/2020,12/10/2020,chronic,con't supplement. -03/24/2022,chronic,stable,con't supplement. Lab Results Component Value Date WBC 4.0 03/11/2022 HGB 11.3 (L) 03/11/2022 HCT 35.7 03/11/2022 MCV 90.4 03/11/2022 LABPLAT 237 03/11/2022 Assessment & Plan (12/26/2021 10:08 PM TIN WORKER): -POA,chronic,stable,con't supplement. Lab Results Component Value Date WBC 4.7 12/26/2021 HGB 11.3 (L) 12/26/2021 HCT 35.9 12/26/2021 MCV 92.1 12/26/2021 LABPLAT 222 12/26/2021 Assessment & Plan (12/31/2020 2:28 AM TIN WORKER): -06/10/2020,12/10/2020,chronic,con't supplement. Lab Results Component Value Date WBC 5.5 12/05/2020 HGB 11.6 (L) 12/05/2020 HCT 35.0 (L) 12/05/2020 MCV 87.9 12/05/2020 LABPLAT 217 12/05/2020 Assessment & Plan (06/16/2020 1:51 PM CDT): -chronic,con't supplement. Assessment & Plan (06/14/2020 3:20 PM CDT): -06/10/2020,chronic,con't supplement. Lab Results Component Value Date WBC 5.2 05/31/2020 HGB 11.4 (L) 05/31/2020 HCT 36.9 05/31/2020 MCV 93.2 05/31/2020 LABPLAT 234 05/31/2020 Assessment & Plan (12/11/2018 8:24 PM TIN WORKER): -chronic,con't supplement. 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;improving with topical cream Acute cystitis without hematuria 08/06/2017 09/24/2017 Assessment & Plan (10/09/2017 11:27 AM TIN WORKER): Acute-take abx Arthralgia 06/25/2017 08/06/2017 Disorder of lumbar disc 04/05/201703/16 Overview (04/09/2017): Bulging lumbar disc Obesity with body mass index 30 or greater 04/05/2017 08/06/2017 Overview (04/16/2017): BMI 30.0-30.9,adult Adiposity 04/05/2017 08/06/2017 Overview (04/16/2017): Obesity (BMI 30.0-34.9) Encounter for postoperative care 10/14/2016 04/12/2018 Postoperative pain 10/14/2016 8 Mass of uterine adnexa 10/14/201606/14 Major depressive disorder, s josep episode, moderate 04/08/2016 08/06/2017 Overview (02/19/2017): Moderate single current episode of major depressive disorder Abdominal pain 06/04/2015 04/12/2018 Overview (02/19/2017): Abdominal pain Fatigue 07/31/2014 04/12/2018 Overview (02/19/2017): Fatigue Immunizations Immunization Administration Dates Next Due Influenza, Live, Intranasal, Quadrivalent 08/12/2016 Influenza, Quadrivalent, Hig h Dose, Preservative Free, Intrr 12/22/2023 Influenza, Quadrivalent, Spl it, Intramuscular 08/16/2019,08/12/2016 Influenza, Quadrivalent, Spl it, Preservative Free, Intramuscular 09/21/2022,11/21/2018,09/24/2017 Influenza, Trivalent, Preser vative Free, Intramuscular 07/20/2024 Influenza, Unspecified 07/20/2024(Deferr ed: Patient Refused),08/15/2023(Deferred: Patient Refused),08/25/2016 Pneumococcal Conjugate Pcv20 09/29/2024, 03/31/2024(Deferred: Patient Refused) Tdap 01/26/2018 ZOSTER Recombinant 12/22/2023,(Deferred: Patient Refused) Social History Tobacco Use Types Packs/Day Years Used Date Smoking Tobacco: Never Passive Smoke Exposure: Never Smokeless Tobacco: Never Tobacco Cessation:Counseling Given: Not Answered Alcohol Use Standard Drinks/Week Comments Yes 0 (1 standard drink = 0.6 oz pur e alcohol) Social drinker Social Connection and Isolation Panel [NHANES] A nswer Date Recorded In a typical week, how many times do you talk on the phone with family, friends, or neighbors? Three times a week 12/22/2023 How often do you get togethe r with friends or relatives? Once a week 12/22/2023 How often do you attend chur or presybeterian services? Never 12/22/2023 Do you belong to any clubs o r organizations such as restoration groups, unions, fraternal or athletic groups, or school groups? No 12/22/2023 How often do you attend meet ings of the clubs or organizations you belong to? Not asked 12/22/2023 Are you , , di vorced, , never , or living with a partner? 12/22/2023 AUDIT-C Answer Date Recorded Q1: How often do you have a drink containing alcohol? Never 12/08/2022 Q2: How many drinks containi ng alcohol do you have on a typical day when you are drinking? Patient does not drink Q3: How often do you have si x or more drinks on one occasion? Never 12/08/2022 Overall Financial Resource Strain (CARDIA) Answe r Date Recorded How hard is it for you to pa y for the very basics like food, housing, medical care, and heating? Not hard at all 12/22/2023 PHQ-2 Answer Date Recorded PHQ-2 Total Score (If total score is 3 or more points, staff should administer the PHQ-9) 2 09/29/2024 [facility] - Occupational Stress Questionnaire Answer Date Recorded Do you feel stress - tense, restless, nervous, or anxious, or unable to sleep at night because your mind is troubled all the time - these days? Very much 12/22/2023 Exercise Vital Sign Answer Date Recorde d On average, how many days pe r week do you engage in moderate to strenuous exercise (like a brisk walk)? 5 days 12/22/2023 On average, how many minutes do you engage in exercise at this level? 30 min 12/22/2023 Hunger Vital Sign Answer Date Recorded Within the past 12 months, y ou worried that your food would run out before you got the money to buy more. Never true 12/22/19 24 Within the past 12 months, t he food you bought just didn't last and you didn't have money to get more. Never true 12/22/2023 PRAPARE - Transportation Answer Date Re corded In the past 12 months, has l ack of transportation kept you from medical appointments or from getting medications? No 05/2024 In the past 12 months, has l ack of transportation kept you from meetings, work, or from getting things needed for daily living? No 12/22/2023 Housing Stability Vital Sign Answer Joe e Recorded In the last 12 months, was t here a time when you were not able to pay the mortgage or rent on time? Yes 12/22/2023 In the last 12 months, how many places have you lived? 2 12/22/2023 In the last 12 months, was t here a time when you did not have a steady place to sleep or slept in a custodial (including now)? No 12/22/2023 PHQ-9 Answer Date Recorded PHQ-9 Total Score 5 09/29/2024 Personal Safety Answer Date Recorded Have you ever been in or are you currently in a harmful physical or emotional relationship or is someone making you feel afraid or unsafe? Denies 01/09/2025 Comments No Sex and Gender Information Value Date Recorded Sex Assigned at Not on file Legal Sex Female 7:07 PM TIN WORKER Gender Identity Not on file Sexual Orientation Straight 04/13/2020 12 :41 PM CDT Last Filed Vital Signs Vital Sign Reading Time Taken Comments Blood Pressure 122/84 01/09/2025 8:45 PM TIN WORKER Pulse 92 01/09/2025 8:45 PM TIN WORKER Temperature 36.9 C (98.5 F) 01/09/2025 8:45 PM TIN WORKER Respiratory Rate 18 01/09/2025 8:45 PM TIN WORKER Oxygen Saturation 97% 01/09/2025 8:45 PM TIN WORKER Inhaled Oxygen Concentration - - Weight 104.3 kg (230 lb) 01/09/2025 5:15 PM TIN WORKER Height 180.3 cm (5' 10.98 ) 09/29/2024 10:28 AM TIN WORKER Body Mass Index 32.09 09/29/2024 10:28 AM TIN WORKER Plan of Treatment Not on file Procedures Procedure Name Priority Date/Time Associated Diagnosis Comments BLOOD CULTURE STAT 01/09/2025 5:45 PM TIN WORKER BLOOD CULTURE STAT 01/09/2025 5:45 PM TIN WORKER EGFR STAT 01/09/2025 5:01 PM TIN WORKER DIFFERENTIAL AUTO STAT 01/09/2025 5:0 1 PM TIN WORKER COMPREHENSIVE METABOLIC PANEL STAT 01/09/2025 5:01 PM TIN WORKER CBC WITH AUTO DIFFERENTIAL STAT 01/09/2025 5:01 PM TIN WORKER XR CHEST PA LATERAL 2 VIEWS ED 01/09/2025 2:45 PM TIN WORKER SCREENING MAMMOGRAM BILATERAL W JOZEF Schedule Routine, Read Routine (OP Routine) 07/11/2024 7:36 AM CDT Screening mammogram, encounter for COLONOSCOPY 03/09/2022 4:06 PM CDT HEPATITIS C ANTIBODY Routine 04/16/2020 12:16 PM CDT Systemic lupus erythematosus, unspecified SLE type, unspecified organ involvement status (HCC) High risk medication use from Last 3 Months or Most Recently Relevant to Health Maintenance Results * Blood culture Blood Peripheral (01/09/2025 5:45 PM TIN WORKER) Report Final Report: No growth Comment:Testing performed by : [facility], [address] [facility] [place]., [address] Blood (Peripheral) 01/09/2025 5:45 PM TIN WORKER 01/09/2025 9:52 PM TIN WORKER Ismael LY - 01/14/2025 7:00 AM TIN WORKER From a different site than #1. Draw Blood cultures before administration of Antibiotics Collection->Peripheral 1. Blood cultures are incubated for 4 days on a continuously monitored blood culture system. The first report of a negative culture is issued within 24 hours of receipt of the specimen in the laboratory. 2. Positive culture results are reported as soon as they are detected. 3. The most important factor for detection of microbes in the setting of bloodstream infection is the volume of blood submitted for culture. Failure to collect an optimal blood volume can result in false negative blood cultures. 4. For pediatric patients, the recommended blood volume to collect follows a weight based strategy. See the electronic test catalog for collection instructions. 5. For positive blood cultures, a rapid molecular test may be performed for organism identification using the ene ePlex blood culture identification panel for gram positive (BCID-GP) and gram negative (BCID-GN) organisms. This nucleic acid amplification test detects microbial DNA in positive blood culture broth. This assay has been cleared by the [place] Food and Drug Administration and its performance characteristics have been verified by the [facility]. For questions about this culture, contact the Microbiology Laboratory at [phone]. Interpretive data was last revised on 24. Peter Nur MD LAB MICROBIOLOGY - GENER AL ORDERABLES Final Result [id number] Department [place] [address] * Blood culture Blood Peripheral (01/09/2025 5:45 PM TIN WORKER) Report Final Report: No growth Comment:Testing performed by : [facility], [address] [place]., [address] Blood (Peripheral) 01/09/2025 5:45 PM TIN WORKER 01/09/2025 9:25 PM TIN WORKER Ismael LY CH - 01/14/2025 7:00 AM TIN WORKER Draw Blood cultures before administration of Antibiotics Collection->Peripheral 1. Blood cultures are incubated for 4 days on a continuously monitored blood culture system. The first report of a negative culture is issued within 24 hours of receipt of the specimen in the laboratory. 2. Positive culture results are reported as soon as they are detected. 3. The most important factor for detection of microbes in the setting of bloodstream infection is the volume of blood submitted for culture. Failure to collect an optimal blood volume can result in false negative blood cultures. 4. For pediatric patients, the recommended blood volume to collect follows a weight based strategy. See the electronic test catalog for collection instructions. 5. For positive blood cultures, a rapid molecular test may be performed for organism identification using the ene ePlex blood culture identification panel for gram positive (BCID-GP) and gram negative (BCID-GN) organisms. This nucleic acid amplification test detects microbial DNA in positive blood culture broth. This assay has been cleared by the [place] Food and Drug Administration and its performance characteristics have been verified by the [facility]. For questions about this culture, contact the Microbiology Laboratory at [phone]. Interpretive data was last revised on 24. Peter Nur MD LAB MICROBIOLOGY - GENER AL ORDERABLES Final Result Performing Organization Address City/[facility]/ZIP Co de Phone Number ALIYAH LOZA [id number] Department [place] [address] * eGFR (01/09/2025 5:01 PM TIN WORKER) eGFR 61 >=60 mL/min/1. 73 m2 Comment: Interpretive Data Reference Interval Normal >/= 90 mL/min/1.73m2 Mildly decreased* 60 - 89 mL/min/1.73m2 Mildly to moderately decreased 45 - 59 mL/min/1.73m2 Moderately to severely decreased 30 - 44 mL/min/1.73m2 Severely decreased 15 - 29 mL/min/1.73m2 Kidney Failure < 15 mL/min/1.73m2 *Relative to young adult level Estimated glomerular filtration rate is determined by the 2020 CKD-EPI equation recommended by the National Kidney Foundation (A Unifying Approach to GFR Estimation: Recommendations of the NKF-ASK Task Force on Reassessing the Inclusion of Race in Diagnosing Kidney Disease, JASN 2020). The CKD-EPI equation should not be used for patients with unstable renal function and has not been validated in children and those over 70. Current interpretive data was last reviewed 2021. Blood 01/09/2025 5:01 PM TIN WORKER 01/09/2025 5:07 PM TIN WORKER Lana RUFFIN LAB BLOOD ORDERABLES Final Re sult Performing Organization Address City/[facility]/ZIP Co de Phone Number ALIYAH LOZA [id number] [place] [address] * (ABNORMAL) Differential, auto (01/09/2025 5:01 PM TIN WORKER) Neutrophil abs 6.6(H) 1.5 - 6.5 K/cumm Imm gran abs 0.2(H) 0.0 - 0.1 K/cumm [facility] Lymphocyte abs 2.8 0.8 - 3.3 K/cumm [facility] Monocyte abs 1.0(H) 0.2 - 0.8 K/cumm [facility] Eosinophil abs 0.0 0.0 - 0.5 K/cumm [facility] Basophil abs 0.0 0.0 - 0.1 K/cumm [facility] Neutrophil pct 62.0 % [facility] Comment: Interpretive Data Percent cell count reference ranges are not reported, since discordance with absolute values may lead to misinterpretation of CBC data. Current Interpretive Data was last revised on 2018. Imm gran pct 1.9 % [facility] Comment: Interpretive Data Percent cell count reference ranges are not reported, since discordance with absolute values may lead to misinterpretation of CBC data. Current Interpretive Data was last revised on 2018. Lymphocyte pct 26.2 % [facility] Comment: Interpretive Data Percent cell count reference ranges are not reported, since discordance with absolute values may lead to misinterpretation of CBC data. Current Interpretive Data was last revised on 2018. Monocyte pct 9.4 % [facility] Comment: Interpretive Data Percent cell count reference ranges are not reported, since discordance with absolute values may lead to misinterpretation of CBC data. Current Interpretive Data was last revised on 2018. Eosinophil pct 0.3 % [facility] Comment: Interpretive Data Percent cell count reference ranges are not reported, since discordance with absolute values may lead to misinterpretation of CBC data. Current Interpretive Data was last revised on 2018. Basophil pct 0.2 % [facility] Comment: Interpretive Data Percent cell count reference ranges are not reported, since discordance with absolute values may lead to misinterpretation of CBC data. Current Interpretive Data was last revised on 2018. Blood 01/09/2025 5:01 PM TIN WORKER 01/09/2025 5:07 PM TIN WORKER us Lana RUFFIN LAB BLOOD ORDERABLES Final Re sult ALIYAH DAGO [id number] [place] [address] * (ABNORMAL) CBC with auto differential (01/09/2025 5:01 PM TIN WORKER) Pathologist [facility] WBC 10.6(H) 3.8 - 9.9 K/cumm Hgb 11.9 11.9 - 15.5 g/dL [facility] Hct 37.4 35.6 - 45.5 % [facility] Plt 322 150 - 400 K/cumm [facility] MPV 10.2 9.1 - 12.3 fL [facility] RBC 4.13 3.90 - 5.20 M/cumm [facility] MCV 90.6 81.3 - 96.4 fL [facility] MCH 28.8 27.1 - 33.3 pg [facility] MCHC 31.8(L) 32.3 - 35.7 g/dL [facility] RDW CV 12.8 11.1 - 14.9 % [facility] RDW SD 42.4 35.7 - 48.1 fL [facility] NRBC abs 0.00 0.00 - 0.01 K/cumm [facility] Blood 01/09/2025 5:01 PM TIN WORKER 01/09/2025 5:07 PM TIN WORKER us Lana RUFFNI LAB BLOOD ORDERABLES Final Re sult [facility] [id number] Department [place] [address] * Comprehensive metabolic panel (01/09/2025 5:01 PM TIN WORKER) Pathologist [facility] Sodium 142 135 - 145 mmol/L Potassium, pl 4.2 3.3 - 4.9 mmol/L [facility] Chloride 104 97 - 110 mmol/L [facility] CO2 25 22 - 32 mmol/L [facility] Anion gap 13 2 - 15 mmol/L [facility] BUN 16 6 - 25 mg/dL [facility] Creatinine 1.10 0.60 - 1.10 mg/dL [facility] Glucose 98 70 - 199 mg/dL [facility] Comment: Interpretive Data Fasting glucose >/= 126 mg/dl is diagnostic for diabetes. Fasting is defined as no caloric intake for at least 8 hours. Fasting glucose between 100 mg/dl to 125 mg/dl is diagnostic of prediabetes. In a patient with classic symptoms of hyperglycemia or hyperglycemic crisis, a random glucose >/= 200 mg/dl is diagnostic for diabetes. In the absence of unequivocal hyperglycemia, results should be confirmed by repeat testing. The classification and Diagnosis of Diabetes Diabetes Care 2021; 46: S19-S40. Current interpretive data was last revised 2022. Calcium 9.7 8.5 - 10.3 mg/dL [facility] Bilirubin, total 0.4 0.1 - 1.2 mg/dL [facility] Protein, pl 7.9 6.5 - 8.5 g/dL [facility] Albumin 4.4 3.5 - 5.0 g/dL [facility] Alk phos 86 40 - 130 Units/L [facility] ALT 28 7 - 45 Units/L [facility] AST 33 10 - 45 Units/L [facility] Blood 01/09/2025 5:01 PM TIN WORKER 01/09/2025 5:07 PM TIN WORKER Lana RUFFIN LAB BLOOD ORDERABLES Final Re sult ALIYAH [id number] Department [place] [address] * XR Chest Pa Lateral 2 Vw (01/09/2025 2:45 PM TIN WORKER) Anatomical Region Laterality Modality Body, Chest N/A Computed Radiogr aphy 01/09/2025 2:49 PM TIN WORKER Impressions 01/09/2025 2:49 PM TIN WORKER RIGHT UPPER LOBE PNEUMONIA Electronically signed by: Moe Ferreira M.D. Narrative 01/09/2025 2:49 PM TIN WORKER EXAMINATION: XR CHEST PA LATERAL 2 VIEWS HISTORY: Cough and short of breath ORDER DATE: 01/09/2025 2:40 PM FINDINGS: There is patchy infiltrate in the right upper lobe extending from the right perihilum.. The cardiac and mediastinal outlines are unremarkable. There are no significant pleural effusions . No significant abnormalities are noted in the spine or remainder of the bony thorax. Procedure Note Moe Ferreira MD - 01/09/2025 EXAMINATION: XR CHEST PA LATERAL 2 VIEWS HISTORY: Cough and short of breath ORDER DATE: 01/09/2025 2:40 PM FINDINGS: There is patchy infiltrate in the right upper lobe extending from the right perihilum.. The cardiac and mediastinal outlines are unremarkable. There are no significant pleural effusions . No significant abnormalities are noted in the spine or remainder of the bony thorax. IMPRESSION: RIGHT UPPER LOBE PNEUMONIA Electronically signed by: Moe Ferreira M.D. Lana RUFFIN IMG XR PROCEDURES Final Resul t * Screening Mammogram Bilateral W Jozef (07/11/2024 7:36 AM CDT) Anatomical Region Laterality Modality Breast Bilateral Mammography 07/11/2024 8:27 AM CDT Impressions 07/11/2024 8:27 AM CDT No evidence of malignancy in either breast. FINAL ASSESSMENT: BI-RADS Category 1: Negative. RECOMMENDATION: Recommend return for annual screening mammogram in 12 months. Electronically signed by: STACEY MAR MD Narrative 07/11/2024 8:27 AM CDT EXAMINATION: BILATERAL SCREENING MAMMOGRAM COMPARISON: 10/20/2022 TECHNIQUE: Full-field 2D and digital breast tomosynthesis (DBT) images were obtained. CAD was utilized. BREAST PARENCHYMAL COMPOSITION: There are scattered areas of fibroglandular density. FINDINGS: There is no suspicious mass, calcification, or distortion in either breast. Self Screening Mammogram IMG MAMMO PROCEDURES Fi nal Result * COLONOSCOPY (03/09/2022 4:06 PM CDT) Anatomical Region Laterality Modality Other Narrative Procedure Note Luis Benton MD - 03/09/2022 4:06 PM CDT [facility] Patient Name: Kiera Mancuso Procedure Date: 03/09/2022 4:06 PM Date of : 1975 Admit Type: Outpatient Age: 46 Gender: Female Note Status: Finalized Attending MD: Luis Benton M.D. Procedure Date: 03/09/2022 Procedure: Colonoscopy Indications: Generalized abdominal pain, Abdominal pain in the right upper quadrant, Lower abdominal pain Patient Profile: This is a 46 year old female. R sided pain. Providers: Luis Benton M.D., Lc Laurent CRNA (Anesthesia Staff), Whitney Samano RN Referring MD: Marisa Rehman D.O. Medicines: Monitored Anesthesia Care Complications: No immediate complications. Estimated Blood Loss: Estimated blood loss was minimal. Procedure: Pre-Anesthesia Assessment: - ASA Grade Assessment: II - A patient with mild systemic disease. - The risks and benefits of the procedure and the sedation options and risks were discussed with the patient. All questions were answered and informed consent was obtained. After I obtained informed consent, the scope was passed under direct vision. Throughout theprocedure, the patient's blood pressure, pulse, and oxygen saturations were monitored continuously. The scopewas passed under direct vision. The Colonoscope was introduced through the anus and advanced to thececum, identified by appendiceal orifice and ileocecalvalve. The colonoscopy was performed without difficulty.The patient tolerated the procedure well. The qualityof the bowel preparation was evaluated using the BBPS (Surprise Bowel Preparation Scale) with scores of:Right Colon = 3, Transverse Colon = 3 and Left Colon = 3 (entire mucosa seen well with no residual staining, small fragments of stool or opaque liquid). Thetotal BBPS score equals 9. The quality of the bowel preparation was good. The bowel preparation usedwas Plenvu via extended prep with split doseinstruction. Bowel prep was administered using a split dose. Findings: The perianal and digital rectal examinations were normal. Three sessile polyps were found in the cecum. The polyps were 5 to 6mm in size. These polyps were removed with a jumbo cold forceps.Resection and retrieval were complete. Normal mucosa was found in the entire colon. Biopsies were taken witha cold forceps for histology. The retroflexed view of the distal rectum and anal verge was normaland showed no anal or rectal abnormalities. Impression: - Three 5 to 6 mm polyps in the cecum, removed witha jumbo cold forceps. Resected and retrieved. - Normal mucosa in the entire examined colon.Biopsied. - The distal rectum and anal verge are normal on retroflexion view. Recommendation: - Discharge patient to home. - Await pathology results. - Repeat colonoscopy in 3 years for surveillance. Electronically signed by Luis Benton MD Luis Benton M.D. 03/09/2022 5:14:24 PM Number of Addenda: 0 Note Initiated On: 03/09/2022 4:06 PM Luis Benton MD ENDOSCOPY PROCEDURES Final Re sult * Hepatitis C antibody (04/16/2020 12:16 PM CDT) Hep C Ab Nonreactive Nonreactive ALIYAH BAXTER Blood specimen (specimen) 04/16/2020 12:16 PM CDT 04/16/2020 2:39 PM CDT Joelle Calderon MD LAB MICROBIOL OGY - GENERAL ORDERABLES Edited Result - Final [facility] [place] [address] from Last 3 Months or Most Recently Relevant to Health Maintenance Insurance [employer] ACCESS [facility] Em[employer] CT Em[employer] CT Advance Directives For more information, please contact: [phone] * Full Code (Latest Code Status on File) Date Activated Date Inactivated Comments 05/04/2023 10:03 PM 05/08/2023 9:48 PM * Full Code Date Activated Date Inactivated Comments 05/04/2023 9:27 PM 05/04/2023 10:03 PM * Full Code Date Activated Date Inactivated Comments 10/23/2022 2:46 AM 10/27/2022 7:35 PM * Full Code Date Activated Date Inactivated Comments 10/22/2022 11:55 PM 10/23/2022 2:46 AM * Full Code Date Activated Date Inactivated Comments 03/09/2022 3:13 PM 03/11/2022 3:21 PM Care Teams Business Line Manager Relationship Specialty Start Date End Date Marisa Rehman DO [address] [place] [address] PCP - General 09/30/20 Marisa Rehman DO [address] [place] [address] PCP - [place] Attributed PCP 12/16/18 Marisa Rehman DO [address] [place] [address] Family Medicine 09/30/20
--- OUTSIDE RECORDS SUMMARY | 2025-01-31 22:35 | XMS_ITS | Clinical Summary ---
Author Organization [facility] Healthcare Address [address] [place] [address] Care Team Providers Care Cable Ferryboat Operator Name Role Phone Marisa Rehman DO Primary Care Provi km Marisa Rehman DO Unavailable [phone] Marisa Rehman DO Unavailable [phone] Allergies Active Allergy Reactions Criticality Noted Date Comments Latex Itching Low 04/04/2018 Medications albuterol HFA (PROVENTIL HFA,VENTOLIN HFA,PROAIR HFA) 90 mcg/actuation inhaler INHALE 2 PUFFS BY MOUTH EVERY 4 HOURS NEEDED FOR WHEEZING OR SHORTNESS OF BREATH 18 g 02/09/20 025 Active dicyclomine (BENTYL) 20 mg tabletIndications :Irritable Bowel Syndrome Take 1 tablet (20 mg total) by mouth 4 (four) times a day (with meals and nightly) 120 tablet 03/10/[address] (PROTONIX) 40 mg EC tablet Take 1 tablet (40 mg total) by mouth daily 30 tablet 03/10/20 Active senna-docusate (PERICOLACE) 8.6-50 mg Take 2 tablets by mouth 2 (two) times a day 120 tablet 03/10/20 22 025 Active Additional Information Patient not taking.Reported on [...] by mouth daily 90 tablet 3 12/08/19 23 Active propranoloL (INDERAL) 10 mg tabletIndications :Anxiety Take 1 tablet (10 mg total) by mouth 2 (two) times a day 180 tablet 1 09/02/20 23 025 Active leflunomide (ARAVA) 20 mg tabletIndications [...] (six) hours as needed for pain 03/28/20 Active traMADoL (ULTRAM) 50 mg tablet Take 1 tablets every 6 hours as needed for pain. 40 tablet 04/03/20 Active Additional Information Patient not taking.Reported on [...] 09/29/2024 Assessment & Plan (10/08/2024 5:16 PM CLARIFIER OPERATOR HELPER): -09/29/2024,She fell on Wednesday,xray hand,apply topical analgesic. [...] diet. Assessment & Plan (01/06/2024 10:51 AM CLARIFIER OPERATOR HELPER): Chronic, stable. BP 122/86. Continue amlodipine 5mg [...] therapy. Lymphadenopathy of left cervical region 05/25/20 23 Assessment & Plan (06/13/2023 10:47 AM CDT): [...] & Plan (07/09/2024 6:09 PM CDT): -05/25/2023,chronic,improving,con't lipitor,KIERA VELARDE was advised [...] 10/20/2022 TRIG 134 12/27/2021 Iron deficiency anemia secon gemma to inadequate dietary iron intake 05/04/2023 Assessment [...] ). Assessment & Plan (01/02/2023 12:56 PM CLARIFIER OPERATOR HELPER): -12/08/2022,She has weakness from stroke,con't lipitor,ASA,lisinopril,Artealia H Bartolome was advised to maintain a low fat, low cholesterol diet,low salt diet,going to physical therapy. Class 1 obesity due to exces s calories with serious comorbidity and body mass index (BMI) of 32.0 to 32.9 in adult 03/29/2022 Assessment & Plan (10/08/2024 5:15 PM CLARIFIER OPERATOR HELPER): -03/24/2022,chronic,was encouraged to maintain a regular cardiovascular [...] exercise. Assessment & Plan (01/06/2024 10:51 AM CLARIFIER OPERATOR HELPER): Chronic, worsening. Discussed diet and exercise. Assessment [...] loss. Assessment & Plan (01/02/2023 12:50 PM CLARIFIER OPERATOR HELPER): -03/24/2022,chronic,was encouraged to maintain a regular cardiovascular [...] loss. Assessment & Plan (10/01/2022 11:00 PM CLARIFIER OPERATOR HELPER): -03/24/2022,chronic,was encouraged to maintain a regular cardiovascular [...] 03/05/2022 Assessment & Plan (10/01/2022 11:03 PM CLARIFIER OPERATOR HELPER): -POA,She presented to the ER with RLQ [...] 03/05/2022 Assessment & Plan (10/01/2022 11:04 PM CLARIFIER OPERATOR HELPER): -03/24/2022,chronic,stable,avoid fried,fatty,greasy foods. -09/21/2022,chronic,stable,avoid fried,fatty,greasy foods. Assessment [...] Assessment & Plan (03/05/2022 4:11 PM CDT): -POJosé Luis,She presented to the ER with RLQ pain,emesis [...] time. Assessment & Plan (12/28/2021 7:19 PM CLARIFIER OPERATOR HELPER): -12/24/2021,improving,c/o cough,nasal congestion,SOB with activity,use inhaler,con't promethazine with codeine. Assessment & Plan (12/13/2021 10:34 PM CLARIFIER OPERATOR HELPER): -12/09/2021,She's c/o weak,FRIEDMAN,SOB,cough,loss of taste and smell,con't to use inhaler,cough med,steroid.She was encouraged to hydrate. Vasculitis 03/24/2019 Assessment & Plan (07/09/2024 6:00 PM CDT): -06/10/2020,12/10/2020,Chronic-med mgt by rheumatology,needs to f/u with rheum. 03/24/2022,chronic,stable,followed by rheumatology. -09/21/2022,chronic,stable,followed by rheumatology. -12/08/2022,chronic,stable,followed by rheumatology. -07/05/2024,chronic,stable,followed by rheumatology. Assessment & Plan (01/02/2023 12:54 PM CLARIFIER OPERATOR HELPER): -06/10/2020,12/10/2020,Chronic-med mgt by rheumatology,needs to f/u with rheum. 03/24/2022,chronic,stable,followed by rheumatology. -09/21/2022,chronic,stable,followed by rheumatology. -12/08/2022,chronic,stable,followed by rheumatology. Assessment & Plan (10/01/2022 11:11 PM CLARIFIER OPERATOR HELPER): -06/10/2020,12/10/2020,Chronic-med mgt by rheumatology,needs to f/u with rheum. 03/24/2022,chronic,stable,followed by rheumatology. -09/21/2022,chronic,stable,followed by rheumatology. Assessment & Plan (03/29/2022 10:02 AM CDT): -06/10/2020,12/10/2020,Chronic-med mgt by rheumatology,needs to f/u with rheum. 03/24/2022,chronic,stable,followed by rheumatology. Assessment & Plan (12/31/2020 2:30 AM CLARIFIER OPERATOR HELPER): -06/10/2020,12/10/2020,Chronic-med mgt by rheumatology,needs to f/u with [...] rheumatology. Assessment & Plan (01/02/2023 12:53 PM CLARIFIER OPERATOR HELPER): -06/10/2020,12/10/2020,chronic,con't current med regimen,con't plaquenil 200mg daily -03/24/2022,chronic,stable,con't plaquenil 200mg daily,followed by rheumatology. -09/21/2022,chronic,stable,con't plaquenil 200mg daily,followed by rheumatology. -12/08/2022,chronic,stable,con't plaquenil 200mg daily,followed by rheumatology. Assessment & Plan (10/01/2022 11:13 PM CLARIFIER OPERATOR HELPER): -06/10/2020,12/10/2020,chronic,con't current med regimen,con't plaquenil 200mg daily [...] rheumatology. Assessment & Plan (12/26/2021 10:18 PM CLARIFIER OPERATOR HELPER): -POA,chronic,con't current med regimen,con't plaquenil 200mg daily,followed by rheumatology. Assessment & Plan (12/31/2020 2:29 AM CLARIFIER OPERATOR HELPER): -06/10/2020,12/10/2020,chronic,con't current med regimen,con't plaquenil 200mg daily Assessment & Plan (06/16/2020 2:11 PM CDT): -05/31/2020,chronic,con't current med regimen,plaquenil 200mg every day Assessment & Plan (06/14/2020 3:34 PM CDT): -06/10/2020,chronic,con't current med regimen,con't plaquenil 200mg daily Assessment & Plan (02/19/2019 10:29 PM CDT): -chronic,con't current med regimen Assessment & Plan (12/26/2018 4:58 AM CLARIFIER OPERATOR HELPER): +SS-A in 2016 - refresh eye gtts, [...] program. Assessment & Plan (01/01/2019 4:54 PM CLARIFIER OPERATOR HELPER): - continue Cymbalta 30 bid Assessment & Plan (12/26/2018 4:59 AM CLARIFIER OPERATOR HELPER): cont duloxetine, ativan PRN Calcaneal spur of right foot 06/24/2018 Assessment & Plan (10/01/2022 11:16 PM CLARIFIER OPERATOR HELPER): -09/21/2022,chronic,stable,wear heel insert. Assessment & Plan (12/31/2020 2:29 AM CLARIFIER OPERATOR HELPER): -06/10/2020,12/10/2020,chronic,wear inserts daily Assessment & Plan (06/16/2020 [...] changes. Assessment & Plan (10/01/2022 11:03 PM CLARIFIER OPERATOR HELPER): -Symptomatic-con't current txs. -06/10/2020,12/10/2020,chronic,improved with diet changes. -03/24/2022,chronic,stable,con't diet changes. -09/21/2022,chronic,stable,con't diet changes. Assessment & Plan (03/29/2022 9:57 AM CDT): -Symptomatic-con't current txs. -06/10/2020,12/10/2020,chronic,improved with diet changes. -03/24/2022,chronic,stable,con't diet changes. Assessment & Plan (12/31/2020 2:28 AM CLARIFIER OPERATOR HELPER): -Symptomatic-con't current txs. -06/10/2020,12/10/2020,chronic,improved with diet changes. Assessment & Plan (06/16/2020 1:57 PM CDT): -05/31/2020,chronic,con't current txs,increase fluids. Assessment & Plan (06/14/2020 3:27 PM CDT): -Symptomatic-con't current txs. -06/10/2020,chronic,improved with diet changes. Assessment & Plan (12/11/2018 8:20 PM CLARIFIER OPERATOR HELPER): Symptomatic-con't current txs. Assessment & Plan (05/13/2018 [...] rheumatology. Assessment & Plan (01/02/2023 12:53 PM CLARIFIER OPERATOR HELPER): -06/10/2020,12/10/2020,Chronic-med mgt by rheumatology. -03/24/2022,chronic,con't plaquenil,followed by rheumatology. -04/21/2022,chronic,unchanged,percocet 5/325#120,followed by rheumatology. -09/21/2022,chronic,unchanged,percocet 5/325#120,followed by rheumatology. -12/08/2022,chronic,unchanged,percocet 5/325#120,followed by rheumatology. Assessment & Plan (10/01/2022 11:12 PM CLARIFIER OPERATOR HELPER): -06/10/2020,12/10/2020,Chronic-med mgt by rheumatology. -03/24/2022,chronic,con't plaquenil,followed by [...] rheumatology. Assessment & Plan (12/26/2021 10:19 PM CLARIFIER OPERATOR HELPER): -POA,Chronic,con't arava 10mg daily,followed by rheumatology. Assessment & Plan (12/31/2020 2:27 AM CLARIFIER OPERATOR HELPER): -06/10/2020,12/10/2020,Chronic-med mgt by rheumatology. Assessment & Plan (06/16/2020 2:12 PM CDT): -05/31/2020,Chronic,con't plaquenil 200mg every day,med mgt by rheumatology. Assessment & Plan (06/14/2020 3:35 PM CDT): -06/10/2020,Chronic-med mgt by rheumatology. Assessment & Plan (01/03/2019 5:11 PM CLARIFIER OPERATOR HELPER): - was following Dr. Marc at [place] but switching now. Seen by our Rheum team previously and reconsulted for colitis - Previously on prednisone and methotrexate. Recently discontinued methotrexate and started on Cellcept on 12/07. Currently holding Cellcept since 12/14. - continue to hold Cellcept per rheumatology - continue prednisone 10mg qd. Assessment & Plan (01/01/2019 4:56 PM CLARIFIER OPERATOR HELPER): - was following Dr. Marc at [place] but switching now. Seen by our Rheum team previously and reconsulted for colitis - Previously on prednisone and methotrexate. Recently discontinued methotrexate and started on Cellcept on 12/07. Currently holding Cellcept since 12/14. - continue to hold Cellcept per rheumatology - continue prednisone 10mg qd. Pending TPMT Assessment & Plan (12/26/2018 4:57 AM CLARIFIER OPERATOR HELPER): F/b Dr. Marc. Recently increased to prednisone 30 (previously on 10 qd) and started cellcept (held for diarrhea). Previously f/b Dr. Whalen and was on MTX and plaquenil. SITA 1:640, APLS neg 2015. C/o diplopia, numbness in hands/feet, and abdominal [...] consult Assessment & Plan (12/11/2018 8:22 PM CLARIFIER OPERATOR HELPER): Chronic-med mgt by rheumatology,needs to f/u with rheum. Assessment & Plan (11/21/2018 12:33 PM CLARIFIER OPERATOR HELPER): Patient to follow up with rheumatology as scheduled. Medication as prescribed for symptoms but stressed that she must follow up with rheumatology for further treatment. Assessment & Plan (04/12/2018 1:16 PM CDT): Chronic-med mgt by rheumatology,needs to f/u with rheum Assessment & Plan (10/09/2017 11:28 AM CLARIFIER OPERATOR HELPER): Chronic-followed by rheumatology Assessment & Plan (09/28/2017 12:46 PM CLARIFIER OPERATOR HELPER): Chronic-med mgt by rheumatology MCTD (mixed connective [...] rheumatology. Assessment & Plan (10/01/2022 11:14 PM CLARIFIER OPERATOR HELPER): -06/10/2020,12/10/2020,chronic,con't current med regimen,con't plaquenil 200mg daily -03/24/2022,chronic,stable,con't plaquenil 200mg daily,followed by rheumatology. -09/21/2022,chronic,stable,con't plaquenil 200mg daily,followed by rheumatology. Assessment & Plan (03/29/2022 10:04 AM CDT): -06/10/2020,12/10/2020,chronic,con't current med regimen,con't plaquenil 200mg daily -03/24/2022,chronic,stable,con't plaquenil 200mg daily,followed by rheumatology. Assessment & Plan (12/26/2021 10:16 PM CLARIFIER OPERATOR HELPER): -POA,chronic,con't plaquenil 200mg daily,followed by rheumatology Assessment & Plan (12/31/2020 2:26 AM CLARIFIER OPERATOR HELPER): -Chronic-unchanged,con't current txs,exercise;refer pt to pain management,. -06/10/2020,12/10/2020,chronic,con't plaquenil 200mg daily,followed by rheumatology Assessment & Plan (06/16/2020 1:59 PM CDT): -Chronic-unchanged,con't current txs,exercise;refer pt to pain management,. -05/31/2020,chronic,con't plaquenil 200 mg every day. Assessment & Plan (06/14/2020 3:29 PM CDT): -Chronic-unchanged,con't current txs,exercise;refer pt to pain management,. -06/10/2020,chronic,con't plaquenil 200mg daily,followed by rheumatology Assessment & Plan (12/11/2018 8:22 PM CLARIFIER OPERATOR HELPER): Chronic-unchanged,con't current txs,exercise;refer pt to pain management,. Assessment & Plan (07/18/2018 11:38 AM CDT): Chronic-unchanged,con't current txs,exercise;refer pt to pain management, Assessment & Plan (06/24/2018 9:22 AM CDT): Chronic-unchanged,con't current txs,exercise;refer pt to pain management, Assessment & Plan (04/12/2018 1:18 PM CDT): Chronic-con't current txs,exercise Assessment & Plan (09/28/2017 12:45 PM CLARIFIER OPERATOR HELPER): Chronic-con't current txs,exercise Long-term use of Plaquenil 06/25/2017 Vitamin D deficiency 06/25/2017 Assessment & Plan (07/09/2024 5:59 PM CDT): -06/10/2020,12/10/2020,chronic,con't supplement. -03/24/2022,chronic,stable,con't supplement. -09/21/2022,chronic,stable,con't supplement. -05/25/2023,chronic,stable,con't supplement. -07/05/2024,chronic,stable,con't supplement. Assessment & Plan (06/13/2023 10:43 AM CDT): -06/10/2020,12/10/2020,chronic,con't supplement. -03/24/2022,chronic,stable,con't supplement. -09/21/2022,chronic,stable,con't supplement. -05/25/2023,chronic,stable,con't supplement. Assessment & Plan (10/01/2022 11:19 PM CLARIFIER OPERATOR HELPER): -06/10/2020,12/10/2020,chronic,con't supplement. -03/24/2022,chronic,stable,con't supplement. -09/21/2022,chronic,stable,con't supplement. Assessment & Plan (03/29/2022 10:08 AM CDT): -06/10/2020,12/10/2020,chronic,con't supplement. -03/24/2022,chronic,stable,con't supplement. Assessment & Plan (12/31/2020 2:27 AM CLARIFIER OPERATOR HELPER): -06/10/2020,12/10/2020,chronic,con't supplement. Assessment & Plan (06/16/2020 1:58 [...] program. Assessment & Plan (10/01/2022 11:17 PM CLARIFIER OPERATOR HELPER): -06/10/2020,12/10/2020,chronic,con't naproxen 500mg bid,cymbalta 30mg every day [...] day. Assessment & Plan (12/31/2020 2:27 AM CLARIFIER OPERATOR HELPER): -06/10/2020,12/10/2020,chronic,con't naproxen 500mg bid,cymbalta 30mg qd Assessment & Plan (06/16/2020 1:56 PM CDT): -05/31/2020,Chronic-con't current med regimen. Assessment & Plan (06/14/2020 3:25 PM CDT): -06/10/2020,chronic,con't naproxen 500mg bid,cymbalta 30mg qd Assessment & Plan (06/24/2018 9:22 AM CDT): Chronic-con't current txs,exercise Assessment & Plan (10/09/2017 11:28 AM CLARIFIER OPERATOR HELPER): Chronic-con't pain mgt Fibromyalgia 06/25/2017 Assessment & Plan (07/20/2024 4:20 PM CDT): Chronic, unchanged. Followed by rheumatology. Assessment & Plan (07/09/2024 6:06 PM CDT): -06/10/2020,12/10/2020,Chronic-con't current med regimen. -03/24/2022,Chronic,unchanged,con't current med regimen,exercises. -09/21/2022,Chronic,unchanged,con't current med regimen,exercises. -07/05/2024,Chronic,unchanged,con't current med regimen,exercises. Assessment & Plan (10/01/2022 11:14 PM CLARIFIER OPERATOR HELPER): -06/10/2020,12/10/2020,Chronic-con't current med regimen. -03/24/2022,Chronic,unchanged,con't current med regimen,exercises. -09/21/2022,Chronic,unchanged,con't current med regimen,exercises. Assessment & Plan (03/29/2022 10:04 AM CDT): -06/10/2020,12/10/2020,Chronic-con't current med regimen. -03/24/2022,Chronic,unchanged,con't current med regimen,exercises. Assessment & Plan (12/26/2021 10:14 PM CLARIFIER OPERATOR HELPER): -POA,Chronic,con't current med regimen,followed by rheumatology. Assessment & Plan (12/31/2020 2:27 AM CLARIFIER OPERATOR HELPER): -06/10/2020,12/10/2020,Chronic-con't current med regimen. Assessment & Plan (06/16/2020 1:55 PM CDT): -05/31/2020,Chronic,con't current med regimen. Assessment & Plan (06/14/2020 3:24 PM CDT): -06/10/2020,Chronic-con't current med regimen. Assessment & Plan (12/11/2018 8:19 PM CLARIFIER OPERATOR HELPER): Chronic-con't current med regimen. Assessment & Plan (04/12/2018 1:19 PM CDT): Chronic-con't current med regimen,followed by rheumatology Assessment & Plan (10/09/2017 11:28 AM CLARIFIER OPERATOR HELPER): Chronic-con't med regimen Assessment & Plan (09/28/2017 12:45 PM CLARIFIER OPERATOR HELPER): Chronic-con't current med regimen,followed by Hot flashes due to menopause 10/14/2016 Assessment & Plan (10/01/2022 11:05 PM CLARIFIER OPERATOR HELPER): -06/10/2020,12/10/2020,chronic,con't vitamin E daily. -03/24/2022,chronic,stable,con't vitamin E daily. -09/21/2022,chronic,stable,con't vitamin E daily. Assessment & Plan (03/29/2022 9:59 AM CDT): -06/10/2020,12/10/2020,chronic,con't vitamin E daily. -03/24/2022,chronic,stable,con't vitamin E daily. Assessment & Plan (12/31/2020 2:28 AM CLARIFIER OPERATOR HELPER): -06/10/2020,12/10/2020,chronic,con't vitamin E daily. Assessment & Plan (06/16/2020 1:56 PM CDT): -05/31/2020,chronic,con't vitamin E. Assessment & Plan (06/14/2020 3:25 PM CDT): -06/10/2020,chronic,con't vitamin E daily. Assessment & Plan (12/11/2018 8:21 PM CLARIFIER OPERATOR HELPER): -chronic,con't vitamin E. Moderate episode of recurrent major depressive d isorder 08/19/2016 Overview (02/19/2017): Moderate episode of recurrent major depressive disorder Assessment & Plan (10/08/2024 5:14 PM CLARIFIER OPERATOR HELPER): -05/25/2023,chronic,unchanged,con't elavilbuspar,was encouraged to maintain a regular cardiovascular exercise program. -03/10/2024,chronic,unchanged,con't elavilbuspar,maintain a regular cardiovascular exercise program.She denies SI/HI,encouraged counseling. -07/05/2024,chronic,unchanged,con't elavilbuspar,maintain a regular cardiovascular exercise program.She denies SI/HI,encouraged counseling. -08/25/2024,chronic,worse,She wants time off work,wants off for 4wks off,having CP off and on,stressed at home,having difficulty focusing,concentrating at work,difficulty working with coworkers.Con't elchellylbuspar,maintain a regular cardiovascular exercise program.She denies SI/HI,encouraged [...] day,exercises. Assessment & Plan (01/02/2023 12:52 PM CLARIFIER OPERATOR HELPER): -06/10/2020,12/10/2020,chronic,con't cymbalta 30mg every day.Psychological condition is improving with lifestyle modifications. Continue current treatment regimen. Psychological condition will be reassessed at the next regular appointment. -03/24/2022,chronic,stable,con't cymbalta 30mg every day. -04/21/2022,chronic,stable,con't cymbalta 30mg every day. -06/10/2022,chronic,stable,con't cymbalta 30mg every day. -09/21/2022,chronic,stable,con't cymbalta 30mg every day,exercises. -12/08/2022,chronic,worse post stroke,has family stressors,con't cymbalta 30mg every day,exercises. Assessment & Plan (10/01/2022 11:07 PM CLARIFIER OPERATOR HELPER): -06/10/2020,12/10/2020,chronic,con't cymbalta 30mg every day.Psychological condition is [...] claim on her job.Start Ativan,con't elavil,refer to [facility].She was encouraged to [...] day. Assessment & Plan (12/26/2021 10:17 PM CLARIFIER OPERATOR HELPER): -POA,chronic,con't cymbalta 60mg every day,elavil 10mg daily,salagen 5mg qhs.Psychological condition is improving with lifestyle modifications. Continue current treatment regimen. Psychological condition will be reassessed at the next regular appointment. Assessment & Plan (12/31/2020 2:26 AM CLARIFIER OPERATOR HELPER): -06/10/2020,12/10/2020,chronic,con't cymbalta 30mg every day.Psychological condition is [...] appointment. Assessment & Plan (12/11/2018 8:24 PM CLARIFIER OPERATOR HELPER): Psychological condition is improving with lifestyle modifications. [...] appointment. Assessment & Plan (09/28/2017 12:46 PM CLARIFIER OPERATOR HELPER): Psychological condition is unchanged. Continue current treatment regimen. Regular aerobic exercise. Psychological condition will be reassessed at the next regular appointment. Atopic rhinitis 03/06/2016 Overview (02/19/2017): Other allergic rhinitis Assessment & Plan (10/01/2022 11:01 PM CLARIFIER OPERATOR HELPER): -06/10/2020,12/10/2020,chronic,keep well hydrated -03/24/2022,chronic,stable,use nasal spray. -09/21/2022,chronic,stable,use nasal spray,increase water intake. Assessment & Plan (03/29/2022 9:56 AM CDT): -06/10/2020,12/10/2020,chronic,keep well hydrated -03/24/2022,chronic,stable,use nasal spray. Assessment & Plan (12/31/2020 2:26 AM CLARIFIER OPERATOR HELPER): -06/10/2020,12/10/2020,chronic,keep well hydrated Assessment & Plan (06/16/2020 [...] doppler. Assessment & Plan (10/01/2022 11:20 PM CLARIFIER OPERATOR HELPER): -06/10/2020,12/10/2020,chronic,improved,con't low salt diet -03/24/2022,chronic,stable,con't low salt diet. -09/21/2022,chronic,stable,con't low salt diet. Assessment & Plan (03/29/2022 10:08 AM CDT): -06/10/2020,12/10/2020,chronic,improved,con't low salt diet -03/24/2022,chronic,stable,con't low salt diet. Assessment & Plan (12/31/2020 2:26 AM CLARIFIER OPERATOR HELPER): -06/10/2020,12/10/2020,chronic,improved,con't low salt diet Assessment & Plan (06/16/2020 1:55 PM CDT): -05/31/2020,chronic,con't low salt diet. Assessment & Plan (06/14/2020 3:23 PM CDT): -06/10/2020,chronic,improved,con't low salt diet Eczema 07/31/2014 Overview (02/19/2017): Eczema Assessment & Plan (07/09/2024 6:08 PM CDT): -06/10/2020,12/10/2020,Chronic-improving with con't triamcinolone cream,diet changes. -03/24/2022,Chronic,stable,con't triamcinolone cream,diet changes. -09/21/2022,Chronic,stable,con't triamcinolone cream,diet changes. -07/05/2024,,Chronic,stable,con't triamcinolone cream,diet changes. Assessment & Plan (10/01/2022 11:18 PM CLARIFIER OPERATOR HELPER): -06/10/2020,12/10/2020,Chronic-improving with con't triamcinolone cream,diet changes. -03/24/2022,Chronic,stable,con't triamcinolone cream,diet changes. -09/21/2022,Chronic,stable,con't triamcinolone cream,diet changes. Assessment & Plan (03/29/2022 10:07 AM CDT): -06/10/2020,12/10/2020,Chronic-improving with con't triamcinolone cream,diet changes. -03/24/2022,Chronic,stable,con't triamcinolone cream,diet changes. Assessment & Plan (12/31/2020 2:25 AM CLARIFIER OPERATOR HELPER): -06/10/2020,12/10/2020,Chronic-improving with con't triamcinolone cream,diet changes. Assessment & Plan (06/16/2020 1:54 PM CDT): -05/31/2020,Chronic-improving with con't triamcinolone cream,diet changes. Assessment & Plan (06/14/2020 3:23 PM CDT): -06/10/2020,Chronic-improving with con't triamcinolone cream,diet changes. Assessment & Plan (12/11/2018 8:22 PM CLARIFIER OPERATOR HELPER): Chronic-improving with con't triamcinolone cream,diet changes. Assessment & Plan (04/12/2018 1:21 PM CDT): Chronic-improving with con't triamcinolone cream,diet changes Assessment & Plan (09/28/2017 12:43 PM CLARIFIER OPERATOR HELPER): Chronic-con't triamcinolone cream Primary insomnia 07/31/2014 Overview [...] changes. Assessment & Plan (01/02/2023 12:57 PM CLARIFIER OPERATOR HELPER): -06/10/2020,12/10/2020,Chronic-improving with sleep hygiene changes. -03/24/2022,Chronic,stable,discussed sleep hygiene changes. -09/21/2022,Chronic,stable,discussed sleep hygiene changes. -12/08/2022,Chronic,stable,discussed sleep hygiene changes. Assessment & Plan (10/01/2022 11:18 PM CLARIFIER OPERATOR HELPER): -06/10/2020,12/10/2020,Chronic-improving with sleep hygiene changes. -03/24/2022,Chronic,stable,discussed sleep hygiene changes. -09/21/2022,Chronic,stable,discussed sleep hygiene changes. Assessment & Plan (03/29/2022 10:07 AM CDT): -06/10/2020,12/10/2020,Chronic-improving with sleep hygiene changes. -03/24/2022,Chronic,stable,discussed sleep hygiene changes. Assessment & Plan (12/26/2021 10:15 PM CLARIFIER OPERATOR HELPER): -POA,Chronic-improving with sleep hygiene changes. Assessment & Plan (12/31/2020 2:25 AM CLARIFIER OPERATOR HELPER): -06/10/2020,12/10/2020,Chronic-improving with sleep hygiene changes. Assessment & Plan (06/16/2020 1:56 PM CDT): -05/31/2020,Chronic-improving with sleep hygiene changes. Assessment & Plan (06/14/2020 3:26 PM CDT): -06/10/2020,Chronic-improving with sleep hygiene changes. Assessment & Plan (12/11/2018 8:25 PM CLARIFIER OPERATOR HELPER): Chronic-improving with sleep hygiene changes,con't ambien. Assessment [...] prn. Assessment & Plan (10/01/2022 11:17 PM CLARIFIER OPERATOR HELPER): -06/10/2020,12/10/2020,chronic,Asthma is improving with treatment.con't albuterol. The [...] prn. Assessment & Plan (12/26/2021 10:16 PM CLARIFIER OPERATOR HELPER): -POA,chronic,stable,con't albuterol prn. The patient is experiencing frequent daytime asthma symptoms. She is experiencing frequent nighttime asthma symptoms. Discussed monitoring symptoms and use of quick-relief medications and contacting us early in the course of exacerbations. Warning signs of respiratory distress were reviewed with the patient. Counseled to void exposure to cigarette smoke. Assessment & Plan (12/31/2020 2:25 AM CLARIFIER OPERATOR HELPER): -06/10/2020,12/10/2020,chronic,Asthma is improving with treatment.con't albuterol. The [...] smoke. Assessment & Plan (12/26/2018 4:59 AM CLARIFIER OPERATOR HELPER): cont albuterol PRN Assessment & Plan (12/11/2018 8:20 PM CLARIFIER OPERATOR HELPER): Asthma is improving with treatment.con't prednisone. The [...] smoke. Assessment & Plan (09/24/2017 8:54 AM CLARIFIER OPERATOR HELPER): Asthma is improving with treatment.given samples of [...] CDT): -12/08/2022,She's in physical therapy through end of December has difficulty with memory,has right sided weakness.COMPLETED DISABILITY FORMS FOR PT,f/u in 4 weeks. -01/06/2023,Improved,She's worked with PT,wants to return to work Wednesday,December. Assessment & Plan (01/02/2023 12:56 PM CLARIFIER OPERATOR HELPER): -12/08/2022,She's in physical therapy through end december has difficulty with memory,has right sided weakness.COMPLETED DISABILITY FORMS FOR PT,f/u in 4 weeks. AMS (altered mental status) 10/22/2022 12/08/2022 Hyperglycemia 09/21/2022 12/08/2022 Chest pain 12/26/2021 12/27/2021 Assessment & Plan (12/26/2021 10:12 PM CLARIFIER OPERATOR HELPER): -POA,She presented to the ED c/o pain radiating to her left arm and neck.Echo was unremarkable as well as stress today.She's c/o midsternal pain at exam,no associated sxs.Pain is not reproducible.Possibly GI related,HH.Con't PPI,consult GI. Chest pain, unspecified type 12/26/2021 12/26/2021 Cellulitis of left lower extremity 12/24/2021 03/05/2022 Assessment & Plan (12/28/2021 7:20 PM CLARIFIER OPERATOR HELPER): -12/24/2021,Rash on leg for several months,start ceftin 500mg bid x10d. Assessment & Plan (12/26/2021 10:10 PM CLARIFIER OPERATOR HELPER): -POA,She states rash has been present on [...] effects. Assessment & Plan (01/02/2023 12:49 PM CLARIFIER OPERATOR HELPER): -03/24/2022,chronic,BP 118/84,stable,con't norvasc 5mg daily,lisinopril 5mg daily,low salt diet,was encouraged to maintain a regular cardiovascular exercise program. -09/21/2022,chronic,BP 130/84,stable,con't norvasc 5mg daily,lisinopril 5mg daily,low salt diet,was encouraged to maintain a regular cardiovascular exercise program. -12/08/2022,chronic,BP 130/82,stable,con't norvasc 5mg daily,lisinopril 5mg daily,low salt diet,was encouraged to maintain a regular cardiovascular exercise program. Assessment & Plan (10/01/2022 10:59 PM CLARIFIER OPERATOR HELPER): -03/24/2022,chronic,BP 118/84,stable,con't norvasc 5mg daily,lisinopril 5mg daily,low [...] now. Assessment & Plan (12/26/2021 10:14 PM CLARIFIER OPERATOR HELPER): -POA,chronic,BP 145/91,stable,con't norvasc 5mg daily,lisinopril 10mg daily,low salt diet. Chronic jaw pain 12/10/2020 03/29/2022 Assessment & Plan (12/31/2020 2:32 AM CLARIFIER OPERATOR HELPER): -12/10/2020,most likely TMJ Dysfunction,wear mouthgard Refractive error 08/08/2020 03/29/2022 Assessment & Plan (12/31/2020 2:31 AM CLARIFIER OPERATOR HELPER): -12/10/2020,stable Chronic sialoadenitis 06/28/20202021 Assessment & Plan (12/31/2020 2:31 AM CLARIFIER OPERATOR HELPER): -12/10/2020,chronic,stable Submandibular sialoadenitis 06/28/2020 03/29/2022 Assessment & Plan (12/31/2020 2:31 AM CLARIFIER OPERATOR HELPER): -12/10/2020,chronic,stable Chronic parotitis 06/27/2020 03/29/2022 Assessment & Plan (12/31/2020 2:30 AM CLARIFIER OPERATOR HELPER): -12/10/2020,chronic,stable Annual physical exam 05/31/2020 024 Assessment & Plan (07/09/2024 6:11 PM CDT): -07/05/2024,Exam completed. Assessment & Plan (06/13/2023 10:55 AM CDT): -05/25/2023,Exam done. Assessment & Plan (03/29/2022 10:09 AM CDT): -03/24/2022,Exam done. Assessment & Plan (06/16/2020 1:52 PM CDT): -05/31/2020,exam done Assessment & Plan (06/14/2020 3:20 PM CDT): -06/10/2020,exam done Screening mammogram, encounter for 05/31/2020 06/10/2020 Melena 02/08/2019 05/31/2020 Overview (02/08/2019): Added automatically from request for surgery [id number] Assessment & Plan (02/19/2019 10:34 PM CDT): -Recurrent,unclear etiology,f/u with GI Visit for suture removal 01/21/2019 Assessment & Plan (01/21/2019 10:35 PM CLARIFIER OPERATOR HELPER): -removed 1 suture from left lateral thigh post biopsy Polyp of cecum 01/20/2019 06/14/2020 Assessment & Plan (01/20/2019 4:11 PM CLARIFIER OPERATOR HELPER): -hx,removed on colonoscopy Hematochezia 01/01/2019 05/31/2020 Assessment & Plan (02/19/2019 10:31 PM CDT): -unremarkable colonoscopy Assessment & Plan (01/21/2019 10:22 PM CLARIFIER OPERATOR HELPER): -unremarkable colonoscopy Assessment & Plan (01/04/2019 6:34 PM CLARIFIER OPERATOR HELPER): - 2/2 colitis -one bloody bm yesterdaynone today - stable hb - Monitor serial CBC. - Denies any upper GI complaints. No indication for PPI BID Assessment & Plan (01/03/2019 5:11 PM CLARIFIER OPERATOR HELPER): - 2/2 colitis - stable hb - Monitor serial CBC. - Denies any upper GI complaints. 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 No bleeding now and has stable hgb - Monitor serial CBC. - Denies any upper GI complaints. No indication for PPI BID Colitis 12/28/2018 05/31/2020 Assessment & Plan (02/19/2019 10:31 PM CDT): -chronic,followed by GI Assessment & Plan (01/21/2019 10:22 PM CLARIFIER OPERATOR HELPER): -acute,start cipro,flagyl Assessment & Plan (01/04/2019 6:38 PM CLARIFIER OPERATOR HELPER): - seems inflammatory than infectious. Still some [...] now. Assessment & Plan (01/03/2019 5:10 PM CLARIFIER OPERATOR HELPER): - seems inflammatory than infectious. Had one [...] now. Assessment & Plan (01/02/2019 3:40 PM CLARIFIER OPERATOR HELPER): - seems inflammatory than infectious. - has [...] 2 Assessment & Plan (12/31/2020 2:29 AM CLARIFIER OPERATOR HELPER): -06/10/2020,12/10/2020,chronic,con't current medication regimen. Assessment & Plan (06/16/2020 2:03 PM CDT): -05/31/2020,chronic,con't current med regimen. Assessment & Plan (06/14/2020 3:33 PM CDT): -06/10/2020,chronic,con't current medication regimen. Bloody diarrhea 12/26/2018 12/28/2018 Assessment & Plan (12/26/2018 4:56 AM CLARIFIER OPERATOR HELPER): Lactate, lipase wnl. ESR elevated to 28, [...] 12/28/2018 Assessment & Plan (12/26/2018 4:57 AM CLARIFIER OPERATOR HELPER): Ongoing x 1 month, no eye pain [...] counselor. Assessment & Plan (10/01/2022 11:10 PM CLARIFIER OPERATOR HELPER): -06/10/2020,12/10/2020,chronic,con't cymbalta 30mg every day.Psychological condition is [...] day. Assessment & Plan (12/31/2020 2:29 AM CLARIFIER OPERATOR HELPER): -06/10/2020,12/10/2020,chronic,worse,con't cymbalta 30mg every day. Assessment & Plan (06/16/2020 1:52 PM CDT): -05/31/2020,chronic,con't cymbalta 30mg qd. Assessment & Plan (06/14/2020 3:21 PM CDT): -06/10/2020,chronic,worse,con't cymbalta 30mg every day. Assessment & Plan (02/19/2019 10:32 PM CDT): -chronic,worse,con't ativan. Assessment & Plan (12/11/2018 8:26 PM CLARIFIER OPERATOR HELPER): -chronic,worse,con't ativan. Assessment & Plan (07/18/2018 11:38 AM CDT): -chronic,worse,start ativan Heel spur 06/24/2018 11/29/2018 Assessment & Plan (06/24/2018 8:59 AM CDT): -symptomatic,start naproxen,wear inserts in all shoes,refer to podiatry, BMI 30.0-30.9,adult 04/13/2018 01/22/20 19 Assessment & Plan (12/11/2018 8:25 PM CLARIFIER OPERATOR HELPER): Obesity-improving with lifestyle changes. Discussed the patient's [...] 04/12/2018 Assessment & Plan (10/04/2017 6:53 PM CLARIFIER OPERATOR HELPER): Acute-symptomatic,start ceftin,flonase,increase water intake Acute pharyngitis due to oth er specified organisms 10/04/2017 04/12/2018 Assessment & Plan (10/04/2017 6:54 PM CLARIFIER OPERATOR HELPER): Acute-start ceftin Obesity (BMI 30-39.9) 10/04/20172017 Assessment & Plan (10/09/2017 11:27 AM CLARIFIER OPERATOR HELPER): Obesity is improving with lifestyle modifications. Discussed the patient's BMI. The BMI is above average; BMI management plan is completed. Informal exercise measures discussed, e.g. taking stairs instead of elevator. Regular aerobic exercise program discussed. Assessment & Plan (10/04/2017 6:55 PM CLARIFIER OPERATOR HELPER): Obesity is unchanged. Discussed the patient's BMI. The BMI is above average; BMI management plan is completed. Informal exercise measures discussed, e.g. taking stairs instead of elevator. Regular aerobic exercise program discussed. MCTD (mixed connective tissue disease) 08/26/2017 09/24/2017 Anemia 08/26/2017 06/13/2023 Assessment & Plan (10/01/2022 11:06 PM CLARIFIER OPERATOR HELPER): -06/10/2020,12/10/2020,chronic,con't supplement. -03/24/2022,chronic,stable,con't supplement. -09/21/2022,chronic,stable,con't supplement. Lab [...] 03/11/2022 Assessment & Plan (12/26/2021 10:08 PM CLARIFIER OPERATOR HELPER): -POA,chronic,stable,con't supplement. Lab Results Component Value Date WBC 4.7 12/26/2021 HGB 11.3 (L) 12/26/2021 HCT 35.9 12/26/2021 MCV 92.1 12/26/2021 LABPLAT 222 12/26/2021 Assessment & Plan (12/31/2020 2:28 AM CLARIFIER OPERATOR HELPER): -06/10/2020,12/10/2020,chronic,con't supplement. Lab Results Component Value Date [...] 05/31/2020 Assessment & Plan (12/11/2018 8:24 PM CLARIFIER OPERATOR HELPER): -chronic,con't supplement. 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;improving with topical cream Acute cystitis without hematuria 08/06/2017 09/24/2017 Assessment & Plan (10/09/2017 11:27 AM CLARIFIER OPERATOR HELPER): Acute-take abx Arthralgia 06/25/2017 08/06/2017 Disorder of [...] pain Fatigue 07/31/2014 04/12/2018 Overview (02/19/2017): Fatigue Encounters Date Type Department Care Team Description 01/09/2025 5:05 PM CLARIFIER OPERATOR HELPER - 01/09/2025 9:01 PM [facility] Emergency [facility] Emergency Department [address] [place], [place] [id number] Peter Nur MD Pneumonia of right upper lobe due to infectious organism (Primary Dx) Discharge Disposition: Discharge to home or self care 01/09/2025 Telephone [facility] Primary Care at [facility] - [address] [facility] [address] [place] [id number] Marisa Rehman, Medical Question/Miscellaneous from Last 3 Months Immunizations Immunization Administration Dates Next Due Influenza, Live, Intranasal, Quadrivalent 08/12/2016 Influenza, Quadrivalent, Hig h Dose, Preservative Free, Intrr 12/22/2023 Influenza, Quadrivalent, Spl it, Intramuscular 08/16/2019,08/12/2016 Influenza, Quadrivalent, Spl it, Preservative Free, Intramuscular 09/21/2022,11/21/2018,09/24/2017 Influenza, Trivalent, Preser vative Free, Intramuscular 07/20/2024 Influenza, Unspecified 07/20/2024(Deferr ed: Patient Refused),08/15/2023(Deferred: Patient Refused),08/25/2016 Pneumococcal Conjugate Pcv20 09/29/2024, 03/31/2024(Deferred: Patient Refused) Tdap 01/26/2018 ZOSTER Recombinant 12/22/2023,(Deferred: Patient Refused) Surgical History Surgery Date Site/Laterality Comments OTHER SURGICAL HISTORY fibroids: Hysterectomy, total OTHER SURGICAL HISTORY right ovarian cyst: right salpingo-oophorectomy COLONOSCOPY 12/16/2018 - 01/12/2019 colitis, cecal polypectomy, sigmoid ulcer HYSTERECTOMY TUBAL LIGATION Medical History Medical History Date Comments Anemia Asthma Eczema Sleep difficulties Vitamin D deficiency Lupus Sjogren's syndrome Tension headache Migraine Arthritis Rheumatoid arthr itis Miscarriage x1 Colitis 11/2018 Colitis 12/28/2018 Hematochezia 01/01/2019 Melena 02/08/2019 Added automatica lly from request for surgery [id number] Mass of uterine adnexa 10/14/2016 Polyp of cecum 01/20/2019 Seasonal allergies Asthma Anxiety Depression Essential hypertension 01/29/2021 Calculus of gallbladder with out cholecystitis without obstruction 03/05/2022 Other chest pain Submandibular sialoadenitis 06/28/2020 Chronic sialoadenitis 06/28/2020 Chronic parotitis 06/27/2020 Chronic jaw pain 12/10/2020 Covid-19 12/09/2021 Right leg weakness 12/28/2018 Refractive error 08/08/2020 Covid-19 12/09/2021 Abdominal pain 03/05/2022 Obesity Allergic Covid-19 12/09/2021 Covid-19 12/09/2021 Acute ischemic stroke (HCC) 10/27/2022 Hyperglycemia 09/21/2022 AMS (altered mental status) 10/22/2022 Covid-19 12/09/2021 Hospital discharge follow-up 01/02/2023 HLD (hyperlipidemia) 05/04/2023 Primary hypertension 01/29/2021 Acute ischemic stroke (HCC) 10/27/2022 Anxiety 07/06/2018 Covid-19 12/09/2021 Claudication of both lower extremities 07/05/2024 Closed nondisplaced fracture of left calcaneus with routine healing 03/31/2024 Family History Medical History Relation Name Comments Arthritis Daughter Evgeny Allergy (severe) Father Leeroy Diabetes type II Father Leeroy Diabetes me llitus type 2; Hypertension Father Leeroy Rashes / Skin problems Father Leeroy Alcohol abuse Father's Brother Sara Miscarriages / Stillbirths Father's Sister Michelle Ovarian cancer Father's Sister Michelle Arthritis Maternal Grandfather Jhony Cancer Maternal Grandfather Jhony Colon cancer Maternal Grandfather Jhony Hearing loss Maternal Grandfather Jhony Arthritis Maternal Grandmother Brittany Alcohol abuse Mother Ana Celiac disease Mother Ana Depression Mother Ana Depression; Diabetes Mother Ana Drug abuse Mother Ana Hypertension Mother Ana Hypertension; Mental illness Mother Ana Alcohol abuse Mother's Brother Luis Alcohol abuse Mother's Sister Nicolasa Other Other 1 Family history of daughter - JRA; Other Other 2 Family history of lupus - 2 aunts; Other Other 3 Family history of parents, grandparents - rheumatoid arthritis; Allergy (severe) Paternal Grandmother Joy Breast cancer Paternal Grandmother Joy age un known COPD Paternal Grandmother Joy Celiac disease Sister Asthma Son Dartee Anesthesia problems Neg Hx Relation Name Status Comments Daughter Evgeny Father Leeroy Father's Brother Sara Father's Sister Michelle Maternal Grandfather Jhony Maternal Grandmother Brittany Mother Ana Mother's Brother Luis Mother's Sister Nicolasa Other 1 Other 2 Other 3 Paternal Grandmother Joy Sister Son Rj Social History Tobacco Use Types Packs/Day Years [...] 12/22/2023 How often do you attend chur ch or temple services? Never 12/22/2023 Do you belong to any clubs o r organizations such as christianity groups, unions, fraternal or athletic groups, or [...] staff should administer the PHQ-9) 2 09/29/2024 [facility] of Occupat ional Health - Occupational Stress Questionnaire Answer Date Recorded [...] place to sleep or slept in a penitentiary (including now)? No 12/22/2023 PHQ-9 Answer Date [...] on file Legal Sex Female 7:07 PM CLARIFIER OPERATOR HELPER Gender Identity Not on file Sexual Orientation Straight 04/13/2020 12 :41 PM CDT Obstetrics History Para Term AB IAB SAB Ectopic Multiple Livin g Live Births 5 4 4 Date Outcome GA Total Labor Labor/2nd/3rd Weight Sex Type Anes PTL Aliyah A1 A5 Name Clin Term Term Term Term Last Filed Vital Signs Vital Sign Reading Time Taken Comments Blood Pressure 122/84 01/09/2025 8:45 PM CLARIFIER OPERATOR HELPER Pulse 92 01/09/2025 8:45 PM CLARIFIER OPERATOR HELPER Temperature 36.9 C (98.5 F) 01/09/2025 8:45 PM CLARIFIER OPERATOR HELPER Respiratory Rate 18 01/09/2025 8:45 PM CLARIFIER OPERATOR HELPER Oxygen Saturation 97% 01/09/2025 8:45 PM CLARIFIER OPERATOR HELPER Inhaled Oxygen Concentration - - Weight 104.3 kg (230 lb) 01/09/2025 5:15 PM CLARIFIER OPERATOR HELPER Height 180.3 cm (5' 10.98 ) 09/29/2024 10:28 AM CLARIFIER OPERATOR HELPER Body Mass Index 32.09 09/29/2024 10:28 AM CLARIFIER OPERATOR HELPER Plan of Treatment Health Maintenance Due Date Last Done Comments Hepatitis B Screening 1991 Zoster Vaccine (2 of 2) 03/31/2025 12/22/2023 Post poned from 02/16/2024 (Patient declined, but will receive in the future) Regular Well Visit/Exam 18-64 07/05/2025 07/05/2024, 05/25/2023, 03/24/2022, Additional history exists Breast Cancer Screening-Mammogram 07/11/2025 07/11/2024, 10/20/2022 Depression Screening 09/29/2025 09/29/2024, 09/29/2024, 08/25/2024, Additional history exists DTaP/Tdap/Td Vaccine (2 - Td or Tdap) 01/27/2028 01/26/2018 Colon Cancer Screening-Colonoscopy 03/09/2032 03/09/2022, 02/13/2019, 01/05/2019 Hepatitis C Screening Completed 04/16/2020 , 12/27/2018, 05/01/2016, Additional history exists Influenza Vaccine Completed 07/20/2024, , 09/21/2022, Additional history exists Pneumococcal vaccine <65 Completed 09/29/2024 Procedures Procedure Name Priority Date/Time Associated Diagnosis Comments BLOOD CULTURE STAT 01/09/2025 5:45 PM CLARIFIER OPERATOR HELPER BLOOD CULTURE STAT 01/09/2025 5:45 PM CLARIFIER OPERATOR HELPER EGFR STAT 01/09/2025 5:01 PM CLARIFIER OPERATOR HELPER DIFFERENTIAL AUTO STAT 01/09/2025 5:0 1 PM CLARIFIER OPERATOR HELPER COMPREHENSIVE METABOLIC PANEL STAT 01/09/2025 5:01 PM CLARIFIER OPERATOR HELPER CBC WITH AUTO DIFFERENTIAL STAT 01/09/2025 5:01 PM CLARIFIER OPERATOR HELPER XR CHEST PA LATERAL 2 VIEWS ED 01/09/2025 2:45 PM CLARIFIER OPERATOR HELPER SCREENING MAMMOGRAM BILATERAL W JOZEF Schedule Routine, [...] Blood culture Blood Peripheral (01/09/2025 5:45 PM CLARIFIER OPERATOR HELPER) Report Final Report: No growth Comment:Testing performed by : [facility], [address] [place] [address] Blood (Peripheral) 01/09/2025 5:45 PM CLARIFIER OPERATOR HELPER 01/09/2025 9:52 PM CLARIFIER OPERATOR HELPER Ismael LY - 01/14/2025 7:00 AM CLARIFIER OPERATOR HELPER From a different site than #1. Draw [...] characteristics have been verified by the [facility]. For questions about this culture, contact the Microbiology Laboratory at [phone]. Interpretive data was last revised on 24. us Peter Nur MD LAB MICROBIOLOGY - GENER AL ORDERABLES Final Result ALIYAH LOZA [id number] [place] [address] * Blood culture Blood Peripheral (01/09/2025 5:45 PM CLARIFIER OPERATOR HELPER) Report Final Report: No growth Comment:Testing performed by : [facility], [address] [place]., [address] Blood (Peripheral) 01/09/2025 5:45 PM CLARIFIER OPERATOR HELPER 01/09/2025 9:25 PM CLARIFIER OPERATOR HELPER Ismael LY CH - 01/14/2025 7:00 AM CLARIFIER OPERATOR HELPER Draw Blood cultures before administration of Antibiotics [...] characteristics have been verified by the [facility]. For questions about this culture, contact the Microbiology Laboratory at [phone]. Interpretive data was last revised on 24. us Peter Nur MD LAB MICROBIOLOGY - GENER AL ORDERABLES Final Result ALIYAH LOZA [id number] [address] * eGFR (01/09/2025 5:01 PM CLARIFIER OPERATOR HELPER) eGFR 61 >=60 mL/min/1. 73 m2 Comment: [...] last reviewed 2021. Blood 01/09/2025 5:01 PM CLARIFIER OPERATOR HELPER 01/09/2025 5:07 PM CLARIFIER OPERATOR HELPER Lana RUFFIN LAB BLOOD ORDERABLES Final Re sult ALIYAH LOZA [id number] [address] * (ABNORMAL) Differential, auto (01/09/2025 5:01 PM CLARIFIER OPERATOR HELPER) Neutrophil abs 6.6(H) 1.5 - 6.5 K/cumm Imm gran abs 0.2(H) 0.0 - 0.1 K/cumm [facility] Lymphocyte abs 2.8 0.8 - 3.3 K/cumm [facility] Monocyte abs 1.0(H) 0.2 - 0.8 K/cumm [facility] Eosinophil abs 0.0 0.0 - 0.5 K/cumm [facility] Basophil abs 0.0 0.0 - 0.1 K/cumm [facility] Neutrophil pct 62.0 % [facility] Comment: Interpretive Data Percent cell count reference ranges are not reported, since discordance with absolute values may lead to misinterpretation of CBC data. Current Interpretive Data was last revised on 2018. Imm gran pct 1.9 % [facility] Comment: Interpretive Data Percent cell count reference ranges are not reported, since discordance with absolute values may lead to misinterpretation of CBC data. Current Interpretive Data was last revised on 2018. Lymphocyte pct 26.2 % [facility] Comment: Interpretive Data Percent cell count reference ranges are not reported, since discordance with absolute values may lead to misinterpretation of CBC data. Current Interpretive Data was last revised on 2018. Monocyte pct 9.4 % [facility] Comment: Interpretive Data Percent cell count reference ranges are not reported, since discordance with absolute values may lead to misinterpretation of CBC data. Current Interpretive Data was last revised on 2018. Eosinophil pct 0.3 % [facility] Comment: Interpretive Data Percent cell count reference ranges are not reported, since discordance with absolute values may lead to misinterpretation of CBC data. Current Interpretive Data was last revised on 2018. Basophil pct 0.2 % [facility] Comment: Interpretive Data Percent cell count reference ranges are not reported, since discordance with absolute values may lead to misinterpretation of CBC data. Current Interpretive Data was last revised on 2018. Blood 01/09/2025 5:01 PM CLARIFIER OPERATOR HELPER 01/09/2025 5:07 PM CLARIFIER OPERATOR HELPER us Lana RUFFIN LAB BLOOD ORDERABLES Final Re sult ALIYAH LOZA [id number] [place] [address] * (ABNORMAL) CBC with auto differential (01/09/2025 5:01 PM CLARIFIER OPERATOR HELPER) Pathologist [facility] WBC 10.6(H) 3.8 - 9.9 K/cumm Hgb 11.9 11.9 - 15.5 g/dL [facility] Hct 37.4 35.6 - 45.5 % [facility] Plt 322 150 - 400 K/cumm [facility] MPV 10.2 9.1 - 12.3 fL [facility] RBC 4.13 3.90 - 5.20 M/cumm [facility] CH MCV 90.6 81.3 - 96.4 fL [facility] MCH 28.8 27.1 - 33.3 pg [facility] MCHC 31.8(L) 32.3 - 35.7 g/dL [facility] CH RDW CV 12.8 11.1 - 14.9 % [facility] RDW SD 42.4 35.7 - 48.1 fL [facility] NRBC abs 0.00 0.00 - 0.01 K/cumm [facility] Blood 01/09/2025 5:01 PM CLARIFIER OPERATOR HELPER 01/09/2025 5:07 PM CLARIFIER OPERATOR HELPER Lana RUFFIN LAB BLOOD ORDERABLES Final Re sult [facility] [id number] [place] [address] * Comprehensive metabolic panel (01/09/2025 5:01 PM CLARIFIER OPERATOR HELPER) [facility] Sodium 142 135 - 145 mmol/L Potassium, pl 4.2 3.3 - 4.9 mmol/L [facility] Chloride 104 97 - 110 mmol/L [facility] CO2 25 22 - 32 mmol/L [facility] Anion gap 13 2 - 15 mmol/L [facility] BUN 16 6 - 25 mg/dL [facility] Creatinine 1.10 0.60 - 1.10 mg/dL [facility] Glucose 98 70 - 199 mg/dL [facility] Comment: Interpretive Data Fasting glucose >/= [...] Units/L [facility] Blood 01/09/2025 5:01 PM CLARIFIER OPERATOR HELPER 01/09/2025 5:07 PM CLARIFIER OPERATOR HELPER us Lana RUFFIN LAB BLOOD ORDERABLES Final Re sult ALIYAH [id number] [place] [address] * XR Chest Pa Lateral 2 Vw (01/09/2025 2:45 PM CLARIFIER OPERATOR HELPER) Anatomical Region Laterality Modality Body, Chest N/A Computed Radiogr aphy 01/09/2025 2:49 PM CLARIFIER OPERATOR HELPER Impressions 01/09/2025 2:49 PM CLARIFIER OPERATOR HELPER RIGHT UPPER LOBE PNEUMONIA Electronically signed by: Moe Ferreira M.D. Narrative 01/09/2025 2:49 PM CLARIFIER OPERATOR HELPER EXAMINATION: XR CHEST PA LATERAL 2 VIEWS [...] Electronically signed by: Moe Ferreira M.D. Lana Will FL IMG XR PROCEDURES Final Resul t * [...] mass, calcification, or distortion in either breast. us Self Screening Mammogram IMG MAMMO PROCEDURES Fi nal Result * COLONOSCOPY (03/09/2022 4:06 PM CDT) Anatomical Region Laterality Modality Other Narrative Procedure Note Luis Benton MD - 03/09/2022 4:06 PM CDT [facility] Patient Name: Kiera Mancuso [...] bowel preparation was evaluated using the BBPS ([place] Bowel Preparation Scale) with scores of:Right Colon [...] CDT) Hep C Ab Nonreactive Nonreactive [facility] Blood specimen (specimen) 04/16/2020 12:16 PM CDT 04/16/2020 2:39 PM CDT Joelle Calderon MD LAB MICROBIOL OGY - GENERAL ORDERABLES Edited Result - Final [facility] [place] [address] from Last 3 Months or Most Recently Relevant to Health Maintenance Insurance [email or web address] [place] [email or web address] [place] Advance Directives For more information, please contact: [phone] * Full Code (Latest Code Status on [...] 3:13 PM 03/11/2022 3:21 PM Care Teams Cable Ferryboat Operator Relationship Specialty Start Date End Date Marisa Rehman DO [address] [facility] [address] [place] [id number] PCP - General 09/30/20 Marisa Rehman DO [address] [facility] [address] [address] PCP - [place] Attributed PCP 12/16/18 Marisa Rehman DO [address] [facility] [address] [address] Family Medicine 09/30/20
--- OUTSIDE RECORDS SUMMARY | 2025-01-31 22:35 | XMS_ITS | Encounter Summary ---
Author Organization [facility] Address [address] [place] [address] Care Team Providers Care Service Delivery Analyst Name Role Phone Marisa Rehman DO Primary Care Provi km Marisa Rehman DO Unavailable + [phone] Marisa Rehman DO Unavailable [phone] Reason for Visit * Reason Onset Date Comments Medical Question/Miscellaneous 01/09/2025 Encounter Details Date Type Department Care Team (Late st Contact Info) Description 01/09/2025 Telephone [facility] Primary Care at [facility] - [address] [id number] Marisa Rehman DO [address] [place] [id number] Medical Question/Miscellaneous Social History Tobacco Use Types Packs/Day Years Used Date Smoking Tobacco: Never Passive Smoke Exposure: Never Smokeless Tobacco: Never Alcohol Use Standard Drinks/Week Comments Yes 0 [...] often do you attend chur ch or mu-ism services? Never 12/22/2023 Do you belong to any clubs o r organizations such as amish groups, unions, fraternal or athletic groups, or [...] staff should administer the PHQ-9) 2 09/29/2024 [facility] - Occupational Stress [...] place to sleep or slept in a [place] (including now)? 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 She was diagnosed last week.She is still having the cough, fatigue and cannot eat. She is asking if this is normal or is there anything she can do or take? Please advise and thank you so much. Does message need to be routed? 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 documented in this encounter Plan of Treatment Not on file documented as of this encounter Visit Diagnoses Not on filedocumented in this encounter Care Teams Service Delivery Analyst Relationship Specialty Start Date End Date Marisa Rehman DO [address] [facility] [address] [place], [place] [id number] PCP - General 09/30/20 Marisa Rehman DO [address] [facility] [address], [place] [id number] PCP - [place] Attributed PCP 12/16/18 Marisa Rehman DO [address] [facility] [address], [place] [address] Family Medicine 09/30/20 documented as of this encounter
--- NOTE | 2025-01-31 22:38 | ECG_ITS ---
Test Date: 2025-01-31 22:41:11 Measurements Intervals Bode Rate: 94 P: 42 DC: 136 QRS: 7 QRSD: 93 T: 36 QT: 375 QTc: 470 Interpretive Statements SINUS RHYTHM No previous ECG available for comparison Electronically Signed On 02-01-2025 11:55:45 CDT by Reji Schmidt M.D.
[2025-01-31 22:54] LABS: Basophils Percent Auto 0.2 % (0.2-1.2); Eosinophils Absolute Auto 0.1 K/mm3 (0-0.3); Eosinophils Percent Auto 1.5 % (0-4.4); Hematocrit 31.6 % (37.0-47.0); Hemoglobin 10.1 g/dL (12.0-15.0); Immature Granulocyte Absolute 0.01 K/mm3 (0.00-0.031); Immature Granulocyte Percent A 0.2 % (0-0.5); Lymphocytes Absolute Auto 1.67 K/mm3 (0.9-3.2); Lymphocytes Percent Auto 41.4 % (18.3-44.2); Mean Corpuscular Hemoglobin 28.6 pg (26-34); Mean Corpuscular Volume 89.5 fl (80-100); Mean Platelet Volume 10.7 fl (7.4-10.4); Monocytes Absolute Auto 0.4 K/mm3 (0.1-0.6); Monocytes Percent Auto 9.7 % (2.6-8.5); Neutrophils Absolute Auto 1.9 K/mm3 (1.3-6.7); Platelet Count Result 179 k/mm3 (150-375); Red Blood Count 3.53 M/mm3 (4.2-5.4); Red Cell Distribution Width 13.6 % (11.5-14.5)
[2025-01-31 23:05] LABS: Alanine Aminotransferase 19 U/L (6-35); Albumin Level 4.5 g/dL (3.5-5.1); Alkaline Phosphatase 76 U/L (38-126); Anion Gap 10 mmol/L (4-12); Aspartate Amino Transferase 26 U/L (14-36); Bilirubin,Total 0.3 mg/dL (0.2-1.3); Blood Urea Nitrogen 10 mg/dL (7-17); Calcium 9.4 mg/dL (8.4-10.2); Carbon Dioxide 25 mmol/L (22-30); Chloride 106 mmol/L (98-107); Estimated CRCL calculation 80 ml/min; Estimated Glomerular Filt Rate > 60; Glucose 104 mg/dL (65-110); Lipase 148 U/L (23-300); Potassium 3.4 mmol/L (3.4-5.0); Sodium 141 mmol/L (137-145)
[2025-01-31 23:14] LABS: Prothrombin Time 13.5 Seconds (11.1-14.7)
[2025-01-31 23:15] LABS: Partial Thromboplastin Time 24.6 Seconds (22.3-36.8)
[2025-01-31 23:18] LABS: Troponin I < 0.012 ng/mL (0.000-0.034)
[2025-02-01 00:11] VITALS: BP 152/90; PULSE 85; RESP 18; O2SAT 100
--- NOTE | 2025-02-01 00:24 | PC.NURSE ---
Pt to ambulatory to triage desk and states she has made an appointment with her doctor so she is just going to go home. Pt left without being seen by provider.
--- OUTSIDE RECORDS SUMMARY | 2025-02-01 00:42 | XMS_ITS | Clinical Summary ---
Author Organization [facility] Healthcare Address [address] [place] [address] Care Team Providers Care [employer] Name Role Phone Marisa Rehman DO Primary Care Provi km Marisa Rehman DO Unavailable [phone] Marisa Rehman DO Unavailable [phone] Allergies Active Allergy Reactions Criticality Noted Date Comments Latex Itching Low 04/04/2018 Medications albuterol HFA (PROVENTIL HFA,VENTOLIN HFA,PROAIR HFA) 90 mcg/actuation inhaler INHALE 2 PUFFS BY MOUTH EVERY 4 HOURS NEEDED FOR WHEEZING OR SHORTNESS OF BREATH 18 g 02/09/20 22 025 Active dicyclomine (BENTYL) 20 mg tabletIndications [...] 09/29/2024 Assessment & Plan (10/08/2024 5:16 PM SHEEP SHEARER): -09/29/2024,She fell on Wednesday,xray hand,apply topical analgesic. [...] diet. Assessment & Plan (01/06/2024 10:51 AM SHEEP SHEARER): Chronic, stable. BP 122/86. Continue amlodipine 5mg [...] ). Assessment & Plan (01/02/2023 12:56 PM SHEEP SHEARER): -12/08/2022,She has weakness from stroke,con't lipitor,ASA,lisinopril,Artealia H Bartolome was advised to maintain a low fat, low cholesterol diet,low salt diet,going to physical therapy. Class 1 obesity due to exces s calories with serious comorbidity and body mass index (BMI) of 32.0 to 32.9 in adult 03/29/2022 Assessment & Plan (10/08/2024 5:15 PM SHEEP SHEARER): -03/24/2022,chronic,was encouraged to maintain a regular cardiovascular [...] exercise. Assessment & Plan (01/06/2024 10:51 AM SHEEP SHEARER): Chronic, worsening. Discussed diet and exercise. Assessment [...] loss. Assessment & Plan (01/02/2023 12:50 PM SHEEP SHEARER): -03/24/2022,chronic,was encouraged to maintain a regular cardiovascular [...] loss. Assessment & Plan (10/01/2022 11:00 PM SHEEP SHEARER): -03/24/2022,chronic,was encouraged to maintain a regular cardiovascular [...] 03/05/2022 Assessment & Plan (10/01/2022 11:03 PM SHEEP SHEARER): -POA,She presented to the ER with RLQ [...] 03/05/2022 Assessment & Plan (10/01/2022 11:04 PM SHEEP SHEARER): -03/24/2022,chronic,stable,avoid fried,fatty,greasy foods. -09/21/2022,chronic,stable,avoid fried,fatty,greasy foods. Assessment [...] time. Assessment & Plan (12/28/2021 7:19 PM SHEEP SHEARER): -12/24/2021,improving,c/o cough,nasal congestion,SOB with activity,use inhaler,con't promethazine with codeine. Assessment & Plan (12/13/2021 10:34 PM SHEEP SHEARER): -12/09/2021,She's c/o weak,[employer]RI[employer],SOB,cough,loss of taste and smell,con't to use inhaler,cough med,steroid.She was encouraged to hydrate. Vasculitis 03/24/2019 Assessment & Plan (07/09/2024 6:00 PM CDT): -06/10/2020,12/10/2020,Chronic-med mgt by rheumatology,needs to f/u with rheum. 03/24/2022,chronic,stable,followed by rheumatology. -09/21/2022,chronic,stable,followed by rheumatology. -12/08/2022,chronic,stable,followed by rheumatology. -07/05/2024,chronic,stable,followed by rheumatology. Assessment & Plan (01/02/2023 12:54 PM SHEEP SHEARER): -06/10/2020,12/10/2020,Chronic-med mgt by rheumatology,needs to f/u with rheum. 03/24/2022,chronic,stable,followed by rheumatology. -09/21/2022,chronic,stable,followed by rheumatology. -12/08/2022,chronic,stable,followed by rheumatology. Assessment & Plan (10/01/2022 11:11 PM SHEEP SHEARER): -06/10/2020,12/10/2020,Chronic-med mgt by rheumatology,needs to f/u with rheum. 03/24/2022,chronic,stable,followed by rheumatology. -09/21/2022,chronic,stable,followed by rheumatology. Assessment & Plan (03/29/2022 10:02 AM CDT): -06/10/2020,12/10/2020,Chronic-med mgt by rheumatology,needs to f/u with rheum. 03/24/2022,chronic,stable,followed by rheumatology. Assessment & Plan (12/31/2020 2:30 AM SHEEP SHEARER): -06/10/2020,12/10/2020,Chronic-med mgt by rheumatology,needs to f/u with [...] rheumatology. Assessment & Plan (01/02/2023 12:53 PM SHEEP SHEARER): -06/10/2020,12/10/2020,chronic,con't current med regimen,con't plaquenil 200mg daily -03/24/2022,chronic,stable,con't plaquenil 200mg daily,followed by rheumatology. -09/21/2022,chronic,stable,con't plaquenil 200mg daily,followed by rheumatology. -12/08/2022,chronic,stable,con't plaquenil 200mg daily,followed by rheumatology. Assessment & Plan (10/01/2022 11:13 PM SHEEP SHEARER): -06/10/2020,12/10/2020,chronic,con't current med regimen,con't plaquenil 200mg daily [...] rheumatology. Assessment & Plan (12/26/2021 10:18 PM SHEEP SHEARER): -POA,chronic,con't current med regimen,con't plaquenil 200mg daily,followed by rheumatology. Assessment & Plan (12/31/2020 2:29 AM SHEEP SHEARER): -06/10/2020,12/10/2020,chronic,con't current med regimen,con't plaquenil 200mg daily Assessment & Plan (06/16/2020 2:11 PM CDT): -05/31/2020,chronic,con't current med regimen,plaquenil 200mg every day Assessment & Plan (06/14/2020 3:34 PM CDT): -06/10/2020,chronic,con't current med regimen,con't plaquenil 200mg daily Assessment & Plan (02/19/2019 10:29 PM CDT): -chronic,con't current med regimen Assessment & Plan (12/26/2018 4:58 AM SHEEP SHEARER): +SS-A in 2016 - refresh eye gtts, [...] program. Assessment & Plan (01/01/2019 4:54 PM SHEEP SHEARER): - continue Cymbalta 30 bid Assessment & Plan (12/26/2018 4:59 AM SHEEP SHEARER): cont duloxetine, ativan PRN Calcaneal spur of right foot 06/24/2018 Assessment & Plan (10/01/2022 11:16 PM SHEEP SHEARER): -09/21/2022,chronic,stable,wear heel insert. Assessment & Plan (12/31/2020 2:29 AM SHEEP SHEARER): -06/10/2020,12/10/2020,chronic,wear inserts daily Assessment & Plan (06/16/2020 [...] changes. Assessment & Plan (10/01/2022 11:03 PM SHEEP SHEARER): -Symptomatic-con't current txs. -06/10/2020,12/10/2020,chronic,improved with diet changes. -03/24/2022,chronic,stable,con't diet changes. -09/21/2022,chronic,stable,con't diet changes. Assessment & Plan (03/29/2022 9:57 AM CDT): -Symptomatic-con't current txs. -06/10/2020,12/10/2020,chronic,improved with diet changes. -03/24/2022,chronic,stable,con't diet changes. Assessment & Plan (12/31/2020 2:28 AM SHEEP SHEARER): -Symptomatic-con't current txs. -06/10/2020,12/10/2020,chronic,improved with diet changes. Assessment & Plan (06/16/2020 1:57 PM CDT): -05/31/2020,chronic,con't current txs,increase fluids. Assessment & Plan (06/14/2020 3:27 PM CDT): -Symptomatic-con't current txs. -06/10/2020,chronic,improved with diet changes. Assessment & Plan (12/11/2018 8:20 PM SHEEP SHEARER): Symptomatic-con't current txs. Assessment & Plan (05/13/2018 [...] rheumatology. Assessment & Plan (01/02/2023 12:53 PM SHEEP SHEARER): -06/10/2020,12/10/2020,Chronic-med mgt by rheumatology. -03/24/2022,chronic,con't plaquenil,followed by rheumatology. -04/21/2022,chronic,unchanged,percocet 5/325#120,followed by rheumatology. -09/21/2022,chronic,unchanged,percocet 5/325#120,followed by rheumatology. -12/08/2022,chronic,unchanged,percocet 5/325#120,followed by rheumatology. Assessment & Plan (10/01/2022 11:12 PM SHEEP SHEARER): -06/10/2020,12/10/2020,Chronic-med mgt by rheumatology. -03/24/2022,chronic,con't plaquenil,followed by [...] rheumatology. Assessment & Plan (12/26/2021 10:19 PM SHEEP SHEARER): -POA,Chronic,con't arava 10mg daily,followed by rheumatology. Assessment & Plan (12/31/2020 2:27 AM SHEEP SHEARER): -06/10/2020,12/10/2020,Chronic-med mgt by rheumatology. Assessment & Plan (06/16/2020 2:12 PM CDT): -05/31/2020,Chronic,con't plaquenil 200mg every day,med mgt by rheumatology. Assessment & Plan (06/14/2020 3:35 PM CDT): -06/10/2020,Chronic-med mgt by rheumatology. Assessment & Plan (01/03/2019 5:11 PM SHEEP SHEARER): - was following Dr. Marc at [place] but switching now. Seen by our Rheum team previously and reconsulted for colitis - Previously on prednisone and methotrexate. Recently discontinued methotrexate and started on Cellcept on 12/07. Currently holding Cellcept since 12/14. - continue to hold Cellcept per rheumatology - continue prednisone 10mg qd. Assessment & Plan (01/01/2019 4:56 PM SHEEP SHEARER): - was following Dr. Mrac at [place] but switching now. Seen by our Rheum team previously and reconsulted for colitis - Previously on prednisone and methotrexate. Recently discontinued methotrexate and started on Cellcept on 12/07. Currently holding Cellcept since 12/14. - continue to hold Cellcept per rheumatology - continue prednisone 10mg qd. Pending TPMT Assessment & Plan (12/26/2018 4:57 AM SHEEP SHEARER): F/b Dr. Marc. Recently increased to prednisone [...] consult Assessment & Plan (12/11/2018 8:22 PM SHEEP SHEARER): Chronic-med mgt by rheumatology,needs to f/u with rheum. Assessment & Plan (11/21/2018 12:33 PM SHEEP SHEARER): Patient to follow up with rheumatology as scheduled. Medication as prescribed for symptoms but stressed that she must follow up with rheumatology for further treatment. Assessment & Plan (04/12/2018 1:16 PM CDT): Chronic-med mgt by rheumatology,needs to f/u with rheum Assessment & Plan (10/09/2017 11:28 AM SHEEP SHEARER): Chronic-followed by rheumatology Assessment & Plan (09/28/2017 12:46 PM SHEEP SHEARER): Chronic-med mgt by rheumatology MCTD (mixed connective [...] rheumatology. Assessment & Plan (10/01/2022 11:14 PM SHEEP SHEARER): -06/10/2020,12/10/2020,chronic,con't current med regimen,con't plaquenil 200mg daily -03/24/2022,chronic,stable,con't plaquenil 200mg daily,followed by rheumatology. -09/21/2022,chronic,stable,con't plaquenil 200mg daily,followed by rheumatology. Assessment & Plan (03/29/2022 10:04 AM CDT): -06/10/2020,12/10/2020,chronic,con't current med regimen,con't plaquenil 200mg daily -03/24/2022,chronic,stable,con't plaquenil 200mg daily,followed by rheumatology. Assessment & Plan (12/26/2021 10:16 PM SHEEP SHEARER): -POA,chronic,con't plaquenil 200mg daily,followed by rheumatology Assessment & Plan (12/31/2020 2:26 AM SHEEP SHEARER): -Chronic-unchanged,con't current txs,exercise;refer pt to pain management,. -06/10/2020,12/10/2020,chronic,con't plaquenil 200mg daily,followed by rheumatology Assessment & Plan (06/16/2020 1:59 PM CDT): -Chronic-unchanged,con't current txs,exercise;refer pt to pain management,. -05/31/2020,chronic,con't plaquenil 200 mg every day. Assessment & Plan (06/14/2020 3:29 PM CDT): -Chronic-unchanged,con't current txs,exercise;refer pt to pain management,. -06/10/2020,chronic,con't plaquenil 200mg daily,followed by rheumatology Assessment & Plan (12/11/2018 8:22 PM SHEEP SHEARER): Chronic-unchanged,con't current txs,exercise;refer pt to pain management,. Assessment & Plan (07/18/2018 11:38 AM CDT): Chronic-unchanged,con't current txs,exercise;refer pt to pain management, Assessment & Plan (06/24/2018 9:22 AM CDT): Chronic-unchanged,con't current txs,exercise;refer pt to pain management, Assessment & Plan (04/12/2018 1:18 PM CDT): Chronic-con't current txs,exercise Assessment & Plan (09/28/2017 12:45 PM SHEEP SHEARER): Chronic-con't current txs,exercise Long-term use of Plaquenil 06/25/2017 Vitamin D deficiency 06/25/2017 Assessment & Plan (07/09/2024 5:59 PM CDT): -06/10/2020,12/10/2020,chronic,con't supplement. -03/24/2022,chronic,stable,con't supplement. -09/21/2022,chronic,stable,con't supplement. -05/25/2023,chronic,stable,con't supplement. -07/05/2024,chronic,stable,con't supplement. Assessment & Plan (06/13/2023 10:43 AM CDT): -06/10/2020,12/10/2020,chronic,con't supplement. -03/24/2022,chronic,stable,con't supplement. -09/21/2022,chronic,stable,con't supplement. -05/25/2023,chronic,stable,con't supplement. Assessment & Plan (10/01/2022 11:19 PM SHEEP SHEARER): -06/10/2020,12/10/2020,chronic,con't supplement. -03/24/2022,chronic,stable,con't supplement. -09/21/2022,chronic,stable,con't supplement. Assessment & Plan (03/29/2022 10:08 AM CDT): -06/10/2020,12/10/2020,chronic,con't supplement. -03/24/2022,chronic,stable,con't supplement. Assessment & Plan (12/31/2020 2:27 AM SHEEP SHEARER): -06/10/2020,12/10/2020,chronic,con't supplement. Assessment & Plan (06/16/2020 1:58 [...] program. Assessment & Plan (10/01/2022 11:17 PM SHEEP SHEARER): -06/10/2020,12/10/2020,chronic,con't naproxen 500mg bid,cymbalta 30mg every day [...] day. Assessment & Plan (12/31/2020 2:27 AM SHEEP SHEARER): -06/10/2020,12/10/2020,chronic,con't naproxen 500mg bid,cymbalta 30mg qd Assessment & Plan (06/16/2020 1:56 PM CDT): -05/31/2020,Chronic-con't current med regimen. Assessment & Plan (06/14/2020 3:25 PM CDT): -06/10/2020,chronic,con't naproxen 500mg bid,cymbalta 30mg qd Assessment & Plan (06/24/2018 9:22 AM CDT): Chronic-con't current txs,exercise Assessment & Plan (10/09/2017 11:28 AM SHEEP SHEARER): Chronic-con't pain mgt Fibromyalgia 06/25/2017 Assessment & Plan (07/20/2024 4:20 PM CDT): Chronic, unchanged. Followed by rheumatology. Assessment & Plan (07/09/2024 6:06 PM CDT): -06/10/2020,12/10/2020,Chronic-con't current med regimen. -03/24/2022,Chronic,unchanged,con't current med regimen,exercises. -09/21/2022,Chronic,unchanged,con't current med regimen,exercises. -07/05/2024,Chronic,unchanged,con't current med regimen,exercises. Assessment & Plan (10/01/2022 11:14 PM SHEEP SHEARER): -06/10/2020,12/10/2020,Chronic-con't current med regimen. -03/24/2022,Chronic,unchanged,con't current med regimen,exercises. -09/21/2022,Chronic,unchanged,con't current med regimen,exercises. Assessment & Plan (03/29/2022 10:04 AM CDT): -06/10/2020,12/10/2020,Chronic-con't current med regimen. -03/24/2022,Chronic,unchanged,con't current med regimen,exercises. Assessment & Plan (12/26/2021 10:14 PM SHEEP SHEARER): -POA,Chronic,con't current med regimen,followed by rheumatology. Assessment & Plan (12/31/2020 2:27 AM SHEEP SHEARER): -06/10/2020,12/10/2020,Chronic-con't current med regimen. Assessment & Plan (06/16/2020 1:55 PM CDT): -05/31/2020,Chronic,con't current med regimen. Assessment & Plan (06/14/2020 3:24 PM CDT): -06/10/2020,Chronic-con't current med regimen. Assessment & Plan (12/11/2018 8:19 PM SHEEP SHEARER): Chronic-con't current med regimen. Assessment & Plan (04/12/2018 1:19 PM CDT): Chronic-con't current med regimen,followed by rheumatology Assessment & Plan (10/09/2017 11:28 AM SHEEP SHEARER): Chronic-con't med regimen Assessment & Plan (09/28/2017 12:45 PM SHEEP SHEARER): Chronic-con't current med regimen,followed by Hot flashes due to menopause 10/14/2016 Assessment & Plan (10/01/2022 11:05 PM SHEEP SHEARER): -06/10/2020,12/10/2020,chronic,con't vitamin E daily. -03/24/2022,chronic,stable,con't vitamin E daily. -09/21/2022,chronic,stable,con't vitamin E daily. Assessment & Plan (03/29/2022 9:59 AM CDT): -06/10/2020,12/10/2020,chronic,con't vitamin E daily. -03/24/2022,chronic,stable,con't vitamin E daily. Assessment & Plan (12/31/2020 2:28 AM SHEEP SHEARER): -06/10/2020,12/10/2020,chronic,con't vitamin E daily. Assessment & Plan (06/16/2020 1:56 PM CDT): -05/31/2020,chronic,con't vitamin E. Assessment & Plan (06/14/2020 3:25 PM CDT): -06/10/2020,chronic,con't vitamin E daily. Assessment & Plan (12/11/2018 8:21 PM SHEEP SHEARER): -chronic,con't vitamin E. Moderate episode of recurrent major depressive d isorder 08/19/2016 Overview (02/19/2017): Moderate episode of recurrent major depressive disorder Assessment & Plan (10/08/2024 5:14 PM SHEEP SHEARER): -05/25/2023,chronic,unchanged,con't elavilbuspar,was encouraged to maintain a regular [...] day,exercises. Assessment & Plan (01/02/2023 12:52 PM SHEEP SHEARER): -06/10/2020,12/10/2020,chronic,con't cymbalta 30mg every day.Psychological condition is improving with lifestyle modifications. Continue current treatment regimen. Psychological condition will be reassessed at the next regular appointment. -03/24/2022,chronic,stable,con't cymbalta 30mg every day. -04/21/2022,chronic,stable,con't cymbalta 30mg every day. -06/10/2022,chronic,stable,con't cymbalta 30mg every day. -09/21/2022,chronic,stable,con't cymbalta 30mg every day,exercises. -12/08/2022,chronic,worse post stroke,has family stressors,con't cymbalta 30mg every day,exercises. Assessment & Plan (10/01/2022 11:07 PM SHEEP SHEARER): -06/10/2020,12/10/2020,chronic,con't cymbalta 30mg every day.Psychological condition is [...] claim on her job.Start Ativan,con't elavil,refer to [facility].She was encouraged to maintain a [...] day. Assessment & Plan (12/26/2021 10:17 PM SHEEP SHEARER): -POA,chronic,con't cymbalta 60mg every day,elavil 10mg daily,salagen 5mg qhs.Psychological condition is improving with lifestyle modifications. Continue current treatment regimen. Psychological condition will be reassessed at the next regular appointment. Assessment & Plan (12/31/2020 2:26 AM SHEEP SHEARER): -06/10/2020,12/10/2020,chronic,con't cymbalta 30mg every day.Psychological condition is [...] appointment. Assessment & Plan (12/11/2018 8:24 PM SHEEP SHEARER): Psychological condition is improving with lifestyle modifications. [...] appointment. Assessment & Plan (09/28/2017 12:46 PM SHEEP SHEARER): Psychological condition is unchanged. Continue current treatment regimen. Regular aerobic exercise. Psychological condition will be reassessed at the next regular appointment. Atopic rhinitis 03/06/2016 Overview (02/19/2017): Other allergic rhinitis Assessment & Plan (10/01/2022 11:01 PM SHEEP SHEARER): -06/10/2020,12/10/2020,chronic,keep well hydrated -03/24/2022,chronic,stable,use nasal spray. -09/21/2022,chronic,stable,use nasal spray,increase water intake. Assessment & Plan (03/29/2022 9:56 AM CDT): -06/10/2020,12/10/2020,chronic,keep well hydrated -03/24/2022,chronic,stable,use nasal spray. Assessment & Plan (12/31/2020 2:26 AM SHEEP SHEARER): -06/10/2020,12/10/2020,chronic,keep well hydrated Assessment & Plan (06/16/2020 [...] doppler. Assessment & Plan (10/01/2022 11:20 PM SHEEP SHEARER): -06/10/2020,12/10/2020,chronic,improved,con't low salt diet -03/24/2022,chronic,stable,con't low salt diet. -09/21/2022,chronic,stable,con't low salt diet. Assessment & Plan (03/29/2022 10:08 AM CDT): -06/10/2020,12/10/2020,chronic,improved,con't low salt diet -03/24/2022,chronic,stable,con't low salt diet. Assessment & Plan (12/31/2020 2:26 AM SHEEP SHEARER): -06/10/2020,12/10/2020,chronic,improved,con't low salt diet Assessment & Plan (06/16/2020 1:55 PM CDT): -05/31/2020,chronic,con't low salt diet. Assessment & Plan (06/14/2020 3:23 PM CDT): -06/10/2020,chronic,improved,con't low salt diet Eczema 07/31/2014 Overview (02/19/2017): Eczema Assessment & Plan (07/09/2024 6:08 PM CDT): -06/10/2020,12/10/2020,Chronic-improving with con't triamcinolone cream,diet changes. -03/24/2022,Chronic,stable,con't triamcinolone cream,diet changes. -09/21/2022,Chronic,stable,con't triamcinolone cream,diet changes. -07/05/2024,,Chronic,stable,con't triamcinolone cream,diet changes. Assessment & Plan (10/01/2022 11:18 PM SHEEP SHEARER): -06/10/2020,12/10/2020,Chronic-improving with con't triamcinolone cream,diet changes. -03/24/2022,Chronic,stable,con't triamcinolone cream,diet changes. -09/21/2022,Chronic,stable,con't triamcinolone cream,diet changes. Assessment & Plan (03/29/2022 10:07 AM CDT): -06/10/2020,12/10/2020,Chronic-improving with con't triamcinolone cream,diet changes. -03/24/2022,Chronic,stable,con't triamcinolone cream,diet changes. Assessment & Plan (12/31/2020 2:25 AM SHEEP SHEARER): -06/10/2020,12/10/2020,Chronic-improving with con't triamcinolone cream,diet changes. Assessment & Plan (06/16/2020 1:54 PM CDT): -05/31/2020,Chronic-improving with con't triamcinolone cream,diet changes. Assessment & Plan (06/14/2020 3:23 PM CDT): -06/10/2020,Chronic-improving with con't triamcinolone cream,diet changes. Assessment & Plan (12/11/2018 8:22 PM SHEEP SHEARER): Chronic-improving with con't triamcinolone cream,diet changes. Assessment & Plan (04/12/2018 1:21 PM CDT): Chronic-improving with con't triamcinolone cream,diet changes Assessment & Plan (09/28/2017 12:43 PM SHEEP SHEARER): Chronic-con't triamcinolone cream Primary insomnia 07/31/2014 Overview [...] changes. Assessment & Plan (01/02/2023 12:57 PM SHEEP SHEARER): -06/10/2020,12/10/2020,Chronic-improving with sleep hygiene changes. -03/24/2022,Chronic,stable,discussed sleep hygiene changes. -09/21/2022,Chronic,stable,discussed sleep hygiene changes. -12/08/2022,Chronic,stable,discussed sleep hygiene changes. Assessment & Plan (10/01/2022 11:18 PM SHEEP SHEARER): -06/10/2020,12/10/2020,Chronic-improving with sleep hygiene changes. -03/24/2022,Chronic,stable,discussed sleep hygiene changes. -09/21/2022,Chronic,stable,discussed sleep hygiene changes. Assessment & Plan (03/29/2022 10:07 AM CDT): -06/10/2020,12/10/2020,Chronic-improving with sleep hygiene changes. -03/24/2022,Chronic,stable,discussed sleep hygiene changes. Assessment & Plan (12/26/2021 10:15 PM SHEEP SHEARER): -POA,Chronic-improving with sleep hygiene changes. Assessment & Plan (12/31/2020 2:25 AM SHEEP SHEARER): -06/10/2020,12/10/2020,Chronic-improving with sleep hygiene changes. Assessment & Plan (06/16/2020 1:56 PM CDT): -05/31/2020,Chronic-improving with sleep hygiene changes. Assessment & Plan (06/14/2020 3:26 PM CDT): -06/10/2020,Chronic-improving with sleep hygiene changes. Assessment & Plan (12/11/2018 8:25 PM SHEEP SHEARER): Chronic-improving with sleep hygiene changes,con't ambien. Assessment [...] prn. Assessment & Plan (10/01/2022 11:17 PM SHEEP SHEARER): -06/10/2020,12/10/2020,chronic,Asthma is improving with treatment.con't albuterol. The [...] prn. Assessment & Plan (12/26/2021 10:16 PM SHEEP SHEARER): -POA,chronic,stable,con't albuterol prn. The patient is experiencing frequent daytime asthma symptoms. She is experiencing frequent nighttime asthma symptoms. Discussed monitoring symptoms and use of quick-relief medications and contacting us early in the course of exacerbations. Warning signs of respiratory distress were reviewed with the patient. Counseled to void exposure to cigarette smoke. Assessment & Plan (12/31/2020 2:25 AM SHEEP SHEARER): -06/10/2020,12/10/2020,chronic,Asthma is improving with treatment.con't albuterol. The [...] smoke. Assessment & Plan (12/26/2018 4:59 AM SHEEP SHEARER): cont albuterol PRN Assessment & Plan (12/11/2018 8:20 PM SHEEP SHEARER): Asthma is improving with treatment.con't prednisone. The [...] smoke. Assessment & Plan (09/24/2017 8:54 AM SHEEP SHEARER): Asthma is improving with treatment.given samples of [...] Wednesday,December. Assessment & Plan (01/02/2023 12:56 PM SHEEP SHEARER): -12/08/2022,She's in physical therapy through end december has difficulty with memory,has right sided weakness.COMPLETED DISABILITY FORMS FOR PT,f/u in 4 weeks. AMS (altered mental status) 10/22/2022 12/08/2022 Hyperglycemia 09/21/2022 12/08/2022 Chest pain 12/26/2021 12/27/2021 Assessment & Plan (12/26/2021 10:12 PM SHEEP SHEARER): -POA,She presented to the ED c/o pain radiating to her left arm and neck.Echo was unremarkable as well as stress today.She's c/o midsternal pain at exam,no associated sxs.Pain is not reproducible.Possibly GI related,HH.Con't PPI,consult GI. Chest pain, unspecified type 12/26/2021 12/26/2021 Cellulitis of left lower extremity 12/24/2021 03/05/2022 Assessment & Plan (12/28/2021 7:20 PM SHEEP SHEARER): -12/24/2021,Rash on leg for several months,start ceftin 500mg bid x10d. Assessment & Plan (12/26/2021 10:10 PM SHEEP SHEARER): -POA,She states rash has been present on [...] effects. Assessment & Plan (01/02/2023 12:49 PM SHEEP SHEARER): -03/24/2022,chronic,BP 118/84,stable,con't norvasc 5mg daily,lisinopril 5mg daily,low salt diet,was encouraged to maintain a regular cardiovascular exercise program. -09/21/2022,chronic,BP 130/84,stable,con't norvasc 5mg daily,lisinopril 5mg daily,low salt diet,was encouraged to maintain a regular cardiovascular exercise program. -12/08/2022,chronic,BP 130/82,stable,con't norvasc 5mg daily,lisinopril 5mg daily,low salt diet,was encouraged to maintain a regular cardiovascular exercise program. Assessment & Plan (10/01/2022 10:59 PM SHEEP SHEARER): -03/24/2022,chronic,BP 118/84,stable,con't norvasc 5mg daily,lisinopril 5mg daily,low [...] now. Assessment & Plan (12/26/2021 10:14 PM SHEEP SHEARER): -POA,chronic,BP 145/91,stable,con't norvasc 5mg daily,lisinopril 10mg daily,low salt diet. Chronic jaw pain 12/10/2020 03/29/2022 Assessment & Plan (12/31/2020 2:32 AM SHEEP SHEARER): -12/10/2020,most likely TMJ Dysfunction,wear mouthgard Refractive error 08/08/2020 03/29/2022 Assessment & Plan (12/31/2020 2:31 AM SHEEP SHEARER): -12/10/2020,stable Chronic sialoadenitis 06/28/20202021 Assessment & Plan (12/31/2020 2:31 AM SHEEP SHEARER): -12/10/2020,chronic,stable Submandibular sialoadenitis 06/28/2020 03/29/2022 Assessment & Plan (12/31/2020 2:31 AM SHEEP SHEARER): -12/10/2020,chronic,stable Chronic parotitis 06/27/2020 03/29/2022 Assessment & Plan (12/31/2020 2:30 AM SHEEP SHEARER): -12/10/2020,chronic,stable Annual physical exam 05/31/2020 024 Assessment [...] (02/08/2019): Added automatically from request for surgery [id number] Assessment & Plan (02/19/2019 10:34 PM CDT): -Recurrent,unclear etiology,f/u with GI Visit for suture removal 01/21/2019 Assessment & Plan (01/21/2019 10:35 PM SHEEP SHEARER): -removed 1 suture from left lateral thigh post biopsy Polyp of cecum 01/20/2019 06/14/2020 Assessment & Plan (01/20/2019 4:11 PM SHEEP SHEARER): -hx,removed on colonoscopy Hematochezia 01/01/2019 05/31/2020 Assessment & Plan (02/19/2019 10:31 PM CDT): -unremarkable colonoscopy Assessment & Plan (01/21/2019 10:22 PM SHEEP SHEARER): -unremarkable colonoscopy Assessment & Plan (01/04/2019 6:34 PM SHEEP SHEARER): - 2/2 colitis -one bloody bm yesterdaynone today - stable hb - Monitor serial CBC. - Denies any upper GI complaints. No indication for PPI BID Assessment & Plan (01/03/2019 5:11 PM SHEEP SHEARER): - 2/2 colitis - stable hb - Monitor serial CBC. - Denies any upper GI complaints. No indication for PPI BID Assessment & Plan (01/02/2019 3:41 PM SHEEP SHEARER): - 2/2 colitis - dark blood clots [employer] with abdominal pain. No bleeding now and has stable hgb - Monitor serial CBC. - Denies any upper GI complaints. No indication for PPI BID Colitis 12/28/2018 05/31/2020 Assessment & Plan (02/19/2019 10:31 PM CDT): -chronic,followed by GI Assessment & Plan (01/21/2019 10:22 PM SHEEP SHEARER): -acute,start cipro,flagyl Assessment & Plan (01/04/2019 6:38 PM SHEEP SHEARER): - seems inflammatory than infectious. Still some [...] now. Assessment & Plan (01/03/2019 5:10 PM SHEEP SHEARER): - seems inflammatory than infectious. Had one [...] now. Assessment & Plan (01/02/2019 3:40 PM SHEEP SHEARER): - seems inflammatory than infectious. - has [...] 2 Assessment & Plan (12/31/2020 2:29 AM SHEEP SHEARER): -06/10/2020,12/10/2020,chronic,con't current medication regimen. Assessment & Plan (06/16/2020 2:03 PM CDT): -05/31/2020,chronic,con't current med regimen. Assessment & Plan (06/14/2020 3:33 PM CDT): -06/10/2020,chronic,con't current medication regimen. Bloody diarrhea 12/26/2018 12/28/2018 Assessment & Plan (12/26/2018 4:56 AM SHEEP SHEARER): Lactate, lipase wnl. ESR elevated to 28, [...] 12/28/2018 Assessment & Plan (12/26/2018 4:57 AM SHEEP SHEARER): Ongoing x 1 month, no eye pain [...] counselor. Assessment & Plan (10/01/2022 11:10 PM SHEEP SHEARER): -06/10/2020,12/10/2020,chronic,con't cymbalta 30mg every day.Psychological condition is [...] day. Assessment & Plan (12/31/2020 2:29 AM SHEEP SHEARER): -06/10/2020,12/10/2020,chronic,worse,con't cymbalta 30mg every day. Assessment & Plan (06/16/2020 1:52 PM CDT): -05/31/2020,chronic,con't cymbalta 30mg qd. Assessment & Plan (06/14/2020 3:21 PM CDT): -06/10/2020,chronic,worse,con't cymbalta 30mg every day. Assessment & Plan (02/19/2019 10:32 PM CDT): -chronic,worse,con't ativan. Assessment & Plan (12/11/2018 8:26 PM SHEEP SHEARER): -chronic,worse,con't ativan. Assessment & Plan (07/18/2018 11:38 AM CDT): -chronic,worse,start ativan Heel spur 06/24/2018 11/29/2018 Assessment & Plan (06/24/2018 8:59 AM CDT): -symptomatic,start naproxen,wear inserts in all shoes,refer to podiatry, BMI 30.0-30.9,adult 04/13/2018 01/22/20 19 Assessment & Plan (12/11/2018 8:25 PM SHEEP SHEARER): Obesity-improving with lifestyle changes. Discussed the patient's [...] 04/12/2018 Assessment & Plan (10/04/2017 6:53 PM SHEEP SHEARER): Acute-symptomatic,start ceftin,flonase,increase water intake Acute pharyngitis due to oth er specified organisms 10/04/2017 04/12/2018 Assessment & Plan (10/04/2017 6:54 PM SHEEP SHEARER): Acute-start ceftin Obesity (BMI 30-39.9) 10/04/20172017 Assessment & Plan (10/09/2017 11:27 AM SHEEP SHEARER): Obesity is improving with lifestyle modifications. Discussed the patient's BMI. The BMI is above average; BMI management plan is completed. Informal exercise measures discussed, e.g. taking stairs instead of elevator. Regular aerobic exercise program discussed. Assessment & Plan (10/04/2017 6:55 PM SHEEP SHEARER): Obesity is unchanged. Discussed the patient's BMI. The BMI is above average; BMI management plan is completed. Informal exercise measures discussed, e.g. taking stairs instead of elevator. Regular aerobic exercise program discussed. MCTD (mixed connective tissue disease) 08/26/2017 09/24/2017 Anemia 08/26/2017 06/13/2023 Assessment & Plan (10/01/2022 11:06 PM SHEEP SHEARER): -06/10/2020,12/10/2020,chronic,con't supplement. -03/24/2022,chronic,stable,con't supplement. -09/21/2022,chronic,stable,con't supplement. Lab [...] 03/11/2022 Assessment & Plan (12/26/2021 10:08 PM SHEEP SHEARER): -POA,chronic,stable,con't supplement. Lab Results Component Value Date WBC 4.7 12/26/2021 HGB 11.3 (L) 12/26/2021 HCT 35.9 12/26/2021 MCV 92.1 12/26/2021 LABPLAT 222 12/26/2021 Assessment & Plan (12/31/2020 2:28 AM SHEEP SHEARER): -06/10/2020,12/10/2020,chronic,con't supplement. Lab Results Component Value Date [...] 05/31/2020 Assessment & Plan (12/11/2018 8:24 PM SHEEP SHEARER): -chronic,con't supplement. 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;improving with topical cream Acute cystitis without hematuria 08/06/2017 09/24/2017 Assessment & Plan (10/09/2017 11:27 AM SHEEP SHEARER): Acute-take abx Arthralgia 06/25/2017 08/06/2017 Disorder of [...] Department Care Team Description 01/09/2025 5:05 PM SHEEP SHEARER - 01/09/2025 9:01 PM [facility] Emergency [facility] Emergency Department [address] [place], [place] [id number] Peter Nur MD Pneumonia of right upper lobe due to infectious organism (Primary Dx) Discharge Disposition: Discharge to home or self care 01/09/2025 Telephone [facility] Primary Care at [facility] - [address] [place] [id number] Marisa Rehman, Medical Question/Miscellaneous from Last 3 [...] Added automatica lly from request for surgery [id number] Mass of uterine adnexa 10/14/2016 Polyp of [...] any clubs o r organizations such as sikh groups, unions, fraternal or athletic groups, or [...] staff should administer the PHQ-9) 2 09/29/2024 [facility] - Occupational Stress [...] place to sleep or slept in a fci (including now)? No 12/22/2023 PHQ-9 Answer Date [...] on file Legal Sex Female 7:07 PM SHEEP SHEARER Gender Identity Not on file Sexual Orientation [...] Comments Blood Pressure 122/84 01/09/2025 8:45 PM SHEEP SHEARER Pulse 92 01/09/2025 8:45 PM SHEEP SHEARER Temperature 36.9 C (98.5 F) 01/09/2025 8:45 PM SHEEP SHEARER Respiratory Rate 18 01/09/2025 8:45 PM SHEEP SHEARER Oxygen Saturation 97% 01/09/2025 8:45 PM SHEEP SHEARER Inhaled Oxygen Concentration - - Weight 104.3 kg (230 lb) 01/09/2025 5:15 PM SHEEP SHEARER Height 180.3 cm (5' 10.98 ) 09/29/2024 10:28 AM SHEEP SHEARER Body Mass Index 32.09 09/29/2024 10:28 AM SHEEP SHEARER Plan of Treatment Health Maintenance Due Date [...] Comments BLOOD CULTURE STAT 01/09/2025 5:45 PM SHEEP SHEARER BLOOD CULTURE STAT 01/09/2025 5:45 PM SHEEP SHEARER EGFR STAT 01/09/2025 5:01 PM SHEEP SHEARER DIFFERENTIAL AUTO STAT 01/09/2025 5:0 1 PM SHEEP SHEARER COMPREHENSIVE METABOLIC PANEL STAT 01/09/2025 5:01 PM SHEEP SHEARER CBC WITH AUTO DIFFERENTIAL STAT 01/09/2025 5:01 PM SHEEP SHEARER XR CHEST PA LATERAL 2 VIEWS ED 01/09/2025 2:45 PM SHEEP SHEARER SCREENING MAMMOGRAM BILATERAL W JOZEF Schedule Routine, [...] Blood culture Blood Peripheral (01/09/2025 5:45 PM SHEEP SHEARER) Report Final Report: No growth Comment:Testing performed by : [facility], [address] [place]., [address] Blood (Peripheral) 01/09/2025 5:45 PM SHEEP SHEARER 01/09/2025 9:52 PM SHEEP SHEARER Ismael LY - 01/14/2025 7:00 AM SHEEP SHEARER From a different site than #1. Draw [...] performance characteristics have been verified by the [facility]. For questions about this culture, contact the Microbiology Laboratory at [phone]. Interpretive data was last revised on 24. us Peter Nur MD LAB MICROBIOLOGY - GENER AL ORDERABLES Final Result [facility] [id number] Department [place] [address] * Blood culture Blood Peripheral (01/09/2025 5:45 PM SHEEP SHEARER) Report Final Report: No growth Comment:Testing performed by : [facility], [address] [place]., [address] Blood (Peripheral) 01/09/2025 5:45 PM SHEEP SHEARER 01/09/2025 9:25 PM SHEEP SHEARER Ismael LY CH - 01/14/2025 7:00 AM SHEEP SHEARER Draw Blood cultures before administration of Antibiotics [...] performance characteristics have been verified by the [facility]. For questions about this culture, contact the Microbiology Laboratory at [phone]. Interpretive data was last revised on 24. us Peter Nur MD LAB MICROBIOLOGY - GENER AL ORDERABLES Final Result [facility] [address] [place] [address] * eGFR (01/09/2025 5:01 PM SHEEP SHEARER) eGFR 61 >=60 mL/min/1. 73 m2 Comment: [...] last reviewed 2021. Blood 01/09/2025 5:01 PM SHEEP SHEARER 01/09/2025 5:07 PM SHEEP SHEARER Lana RUFFIN LAB BLOOD ORDERABLES Final Re sult [facility] [address] [place] [address] * (ABNORMAL) Differential, auto (01/09/2025 5:01 PM SHEEP SHEARER) Neutrophil abs 6.6(H) 1.5 - 6.5 K/cumm Imm gran abs 0.2(H) 0.0 - 0.1 K/cumm [facility] Lymphocyte abs 2.8 0.8 - 3.3 K/cumm [facility] Monocyte abs 1.0(H) 0.2 - 0.8 K/cumm [facility] Eosinophil abs 0.0 0.0 - 0.5 K/cumm [facility] Basophil abs 0.0 0.0 - 0.1 K/cumm [facility] Neutrophil pct 62.0 % [facility] Comment: Interpretive Data Percent cell count reference ranges are not reported, since discordance with absolute values may lead to misinterpretation of CBC data. Current Interpretive Data was last revised on 2018. Imm gran pct 1.9 % [facility] Comment: Interpretive Data Percent cell count reference ranges are not reported, since discordance with absolute values may lead to misinterpretation of CBC data. Current Interpretive Data was last revised on 2018. Lymphocyte pct 26.2 % [facility] Comment: Interpretive Data Percent cell count reference ranges are not reported, since discordance with absolute values may lead to misinterpretation of CBC data. Current Interpretive Data was last revised on 2018. Monocyte pct 9.4 % [facility] Comment: Interpretive Data Percent cell count reference ranges are not reported, since discordance with absolute values may lead to misinterpretation of CBC data. Current Interpretive Data was last revised on 2018. Eosinophil pct 0.3 % [facility] Comment: Interpretive Data Percent cell count reference ranges are not reported, since discordance with absolute values may lead to misinterpretation of CBC data. Current Interpretive Data was last revised on 2018. Basophil pct 0.2 % [facility] Comment: Interpretive Data Percent cell count reference ranges are not reported, since discordance with absolute values may lead to misinterpretation of CBC data. Current Interpretive Data was last revised on 2018. Blood 01/09/2025 5:01 PM SHEEP SHEARER 01/09/2025 5:07 PM SHEEP SHEARER us Lana RUFFIN LAB BLOOD ORDERABLES Final Re sult [facility] [address] Department [place] [address] * (ABNORMAL) CBC with auto differential (01/09/2025 5:01 PM SHEEP SHEARER) Pathologist [facility] WBC 10.6(H) 3.8 - 9.9 K/cumm Hgb 11.9 11.9 - 15.5 g/dL [facility] Hct 37.4 35.6 - 45.5 % [facility] Plt 322 150 - 400 K/cumm [facility] MPV 10.2 9.1 - 12.3 fL [facility] RBC 4.13 3.90 - 5.20 M/cumm [facility] CH MCV 90.6 81.3 - 96.4 fL [facility] MCH 28.8 27.1 - 33.3 pg [facility] MCHC 31.8(L) 32.3 - 35.7 g/dL [facility] CH RDW CV 12.8 11.1 - 14.9 % [facility] RDW SD 42.4 35.7 - 48.1 fL [facility] NRBC abs 0.00 0.00 - 0.01 K/cumm [facility] Blood 01/09/2025 5:01 PM SHEEP SHEARER 01/09/2025 5:07 PM SHEEP SHEARER Lana RUFFIN LAB BLOOD ORDERABLES Final Re sult [facility] [address] Department [place] [address] * Comprehensive metabolic panel (01/09/2025 5:01 PM SHEEP SHEARER) [facility] Sodium 142 135 - 145 mmol/L Potassium, pl 4.2 3.3 - 4.9 mmol/L [facility] Chloride 104 97 - 110 mmol/L [facility] CO2 25 22 - 32 mmol/L [facility] Anion gap 13 2 - 15 mmol/L [facility] BUN 16 6 - 25 mg/dL [facility] Creatinine 1.10 0.60 - 1.10 mg/dL [facility] Glucose 98 70 - 199 mg/dL [facility] Comment: Interpretive Data Fasting glucose >/= [...] Units/L [facility] Blood 01/09/2025 5:01 PM SHEEP SHEARER 01/09/2025 5:07 PM SHEEP SHEARER us Lana RUFFIN LAB BLOOD ORDERABLES Final Re sult [facility]AH [id number] Department [place] [address] * XR Chest Pa Lateral 2 Vw (01/09/2025 2:45 PM SHEEP SHEARER) Anatomical Region Laterality Modality Body, Chest N/A Computed Radiogr aphy 01/09/2025 2:49 PM SHEEP SHEARER Impressions 01/09/2025 2:49 PM SHEEP SHEARER RIGHT UPPER LOBE PNEUMONIA Electronically signed by: Moe Ferreira M.D. Narrative 01/09/2025 2:49 PM SHEEP SHEARER EXAMINATION: XR CHEST PA LATERAL 2 VIEWS [...] signed by: Moe Ferreira M.D. Lana Will [facility] IMG XR PROCEDURES Final Resul t * [...] Benton MD - 03/09/2022 4:06 PM CDT [facility] Patient Name: Kiera Mancuso Procedure [...] bowel preparation was evaluated using the BBPS ([place] Bowel Preparation Scale) with scores of:Right Colon [...] CDT) Hep C Ab Nonreactive Nonreactive [facility] Blood specimen (specimen) 04/16/2020 12:16 PM CDT 04/16/2020 2:39 PM CDT Joelle Calderon MD LAB MICROBIOL OGY - GENERAL ORDERABLES Edited Result - Final [facility] Department [place] [address] from Last 3 Months or Most Recently Relevant to Health Maintenance Insurance [place] Advance Directives For more information, please contact: [phone] * Full Code (Latest Code Status on [...] 3:13 PM 03/11/2022 3:21 PM Care Teams [employer] Relationship Specialty Start Date End Date Marisa Rehman DO [address] [facility] [address] [place] [id number] PCP - General 09/30/20 Marisa Rehman DO [address] [facility] [address], [place] [address] PCP - [place] Attributed PCP 12/16/18 Marisa Rehman DO [address] [facility] [address], [place] [address] Family Medicine 09/30/20
--- OUTSIDE RECORDS SUMMARY | 2025-02-01 00:43 | XMS_ITS | Referral Summary ---
Author Organization [facility] Address [address] [place] [address] Care Team Providers Care Sand Screener Operator Name Role Phone Marisa Rehman DO Primary Care Provi km Marisa Rehman DO Unavailable [phone] Marisa Rehman DO Unavailable [phone] Encounters Date Type Department Care Team Description 01/09/2025 5:05 PM [facility] - 01/09/2025 9:01 PM [facility] Emergency [facility] Emergency Department [address] [place] [id number] Peter Nur MD Pneumonia of right upper lobe due to infectious organism (Primary Dx) Discharge Disposition: Discharge to home or self care 01/09/2025 Telephone [facility] at [facility] - [address] [place] [phone] Marisa Rehman DO Medical Question/Miscellaneous from [...] 09/29/2024 Assessment & Plan (10/08/2024 5:16 PM CLAY ROASTER): -09/29/2024,She fell on Wednesday,xray hand,apply topical analgesic. [...] diet. Assessment & Plan (01/06/2024 10:51 AM CLAY ROASTER): Chronic, stable. BP 122/86. Continue amlodipine 5mg [...] ). Assessment & Plan (01/02/2023 12:56 PM CLAY ROASTER): -12/08/2022,She has weakness from stroke,con't lipitor,ASA,lisinopril,Artealia Wallace Mancuso was advised to maintain a low fat, low cholesterol diet,low salt diet,going to physical therapy. Class 1 obesity due to exces s calories with serious comorbidity and body mass index (BMI) of 32.0 to 32.9 in adult 03/29/2022 Assessment & Plan (10/08/2024 5:15 PM CLAY ROASTER): -03/24/2022,chronic,was encouraged to maintain a regular cardiovascular [...] exercise. Assessment & Plan (01/06/2024 10:51 AM CLAY ROASTER): Chronic, worsening. Discussed diet and exercise. Assessment [...] loss. Assessment & Plan (01/02/2023 12:50 PM CLAY ROASTER): -03/24/2022,chronic,was encouraged to maintain a regular cardiovascular [...] loss. Assessment & Plan (10/01/2022 11:00 PM CLAY ROASTER): -03/24/2022,chronic,was encouraged to maintain a regular cardiovascular [...] 03/05/2022 Assessment & Plan (10/01/2022 11:03 PM CLAY ROASTER): -POA,She presented to the ER with RLQ [...] 03/05/2022 Assessment & Plan (10/01/2022 11:04 PM CLAY ROASTER): -03/24/2022,chronic,stable,avoid fried,fatty,greasy foods. -09/21/2022,chronic,stable,avoid fried,fatty,greasy foods. Assessment [...] time. Assessment & Plan (12/28/2021 7:19 PM CLAY ROASTER): -12/24/2021,improving,c/o cough,nasal congestion,SOB with activity,use inhaler,con't promethazine with codeine. Assessment & Plan (12/13/2021 10:34 PM CLAY ROASTER): -12/09/2021,She's c/o weak,FRIEDMAN,SOB,cough,loss of taste and smell,con't to use inhaler,cough med,steroid.She was encouraged to hydrate. Vasculitis 03/24/2019 Assessment & Plan (07/09/2024 6:00 PM CDT): -06/10/2020,12/10/2020,Chronic-med mgt by rheumatology,needs to f/u with rheum. 03/24/2022,chronic,stable,followed by rheumatology. -09/21/2022,chronic,stable,followed by rheumatology. -12/08/2022,chronic,stable,followed by rheumatology. -07/05/2024,chronic,stable,followed by rheumatology. Assessment & Plan (01/02/2023 12:54 PM CLAY ROASTER): -06/10/2020,12/10/2020,Chronic-med mgt by rheumatology,needs to f/u with rheum. 03/24/2022,chronic,stable,followed by rheumatology. -09/21/2022,chronic,stable,followed by rheumatology. -12/08/2022,chronic,stable,followed by rheumatology. Assessment & Plan (10/01/2022 11:11 PM CLAY ROASTER): -06/10/2020,12/10/2020,Chronic-med mgt by rheumatology,needs to f/u with rheum. 03/24/2022,chronic,stable,followed by rheumatology. -09/21/2022,chronic,stable,followed by rheumatology. Assessment & Plan (03/29/2022 10:02 AM CDT): -06/10/2020,12/10/2020,Chronic-med mgt by rheumatology,needs to f/u with rheum. 03/24/2022,chronic,stable,followed by rheumatology. Assessment & Plan (12/31/2020 2:30 AM CLAY ROASTER): -06/10/2020,12/10/2020,Chronic-med mgt by rheumatology,needs to f/u with [...] rheumatology. Assessment & Plan (01/02/2023 12:53 PM CLAY ROASTER): -06/10/2020,12/10/2020,chronic,con't current med regimen,con't plaquenil 200mg daily -03/24/2022,chronic,stable,con't plaquenil 200mg daily,followed by rheumatology. -09/21/2022,chronic,stable,con't plaquenil 200mg daily,followed by rheumatology. -12/08/2022,chronic,stable,con't plaquenil 200mg daily,followed by rheumatology. Assessment & Plan (10/01/2022 11:13 PM CLAY ROASTER): -06/10/2020,12/10/2020,chronic,con't current med regimen,con't plaquenil 200mg daily [...] rheumatology. Assessment & Plan (12/26/2021 10:18 PM CLAY ROASTER): -POA,chronic,con't current med regimen,con't plaquenil 200mg daily,followed by rheumatology. Assessment & Plan (12/31/2020 2:29 AM CLAY ROASTER): -06/10/2020,12/10/2020,chronic,con't current med regimen,con't plaquenil 200mg daily Assessment & Plan (06/16/2020 2:11 PM CDT): -05/31/2020,chronic,con't current med regimen,plaquenil 200mg every day Assessment & Plan (06/14/2020 3:34 PM CDT): -06/10/2020,chronic,con't current med regimen,con't plaquenil 200mg daily Assessment & Plan (02/19/2019 10:29 PM CDT): -chronic,con't current med regimen Assessment & Plan (12/26/2018 4:58 AM CLAY ROASTER): +SS-A in 2016 - refresh eye gtts, [...] program. Assessment & Plan (01/01/2019 4:54 PM CLAY ROASTER): - continue Cymbalta 30 bid Assessment & Plan (12/26/2018 4:59 AM CLAY ROASTER): cont duloxetine, ativan PRN Calcaneal spur of right foot 06/24/2018 Assessment & Plan (10/01/2022 11:16 PM CLAY ROASTER): -09/21/2022,chronic,stable,wear heel insert. Assessment & Plan (12/31/2020 2:29 AM CLAY ROASTER): -06/10/2020,12/10/2020,chronic,wear inserts daily Assessment & Plan (06/16/2020 [...] changes. Assessment & Plan (10/01/2022 11:03 PM CLAY ROASTER): -Symptomatic-con't current txs. -06/10/2020,12/10/2020,chronic,improved with diet changes. -03/24/2022,chronic,stable,con't diet changes. -09/21/2022,chronic,stable,con't diet changes. Assessment & Plan (03/29/2022 9:57 AM CDT): -Symptomatic-con't current txs. -06/10/2020,12/10/2020,chronic,improved with diet changes. -03/24/2022,chronic,stable,con't diet changes. Assessment & Plan (12/31/2020 2:28 AM CLAY ROASTER): -Symptomatic-con't current txs. -06/10/2020,12/10/2020,chronic,improved with diet changes. Assessment & Plan (06/16/2020 1:57 PM CDT): -05/31/2020,chronic,con't current txs,increase fluids. Assessment & Plan (06/14/2020 3:27 PM CDT): -Symptomatic-con't current txs. -06/10/2020,chronic,improved with diet changes. Assessment & Plan (12/11/2018 8:20 PM CLAY ROASTER): Symptomatic-con't current txs. Assessment & Plan (05/13/2018 [...] rheumatology. Assessment & Plan (01/02/2023 12:53 PM CLAY ROASTER): -06/10/2020,12/10/2020,Chronic-med mgt by rheumatology. -03/24/2022,chronic,con't plaquenil,followed by rheumatology. -04/21/2022,chronic,unchanged,percocet 5/325#120,followed by rheumatology. -09/21/2022,chronic,unchanged,percocet 5/325#120,followed by rheumatology. -12/08/2022,chronic,unchanged,percocet 5/325#120,followed by rheumatology. Assessment & Plan (10/01/2022 11:12 PM CLAY ROASTER): -06/10/2020,12/10/2020,Chronic-med mgt by rheumatology. -03/24/2022,chronic,con't plaquenil,followed by [...] rheumatology. Assessment & Plan (12/26/2021 10:19 PM CLAY ROASTER): -POA,Chronic,con't arava 10mg daily,followed by rheumatology. Assessment & Plan (12/31/2020 2:27 AM CLAY ROASTER): -06/10/2020,12/10/2020,Chronic-med mgt by rheumatology. Assessment & Plan (06/16/2020 2:12 PM CDT): -05/31/2020,Chronic,con't plaquenil 200mg every day,med mgt by rheumatology. Assessment & Plan (06/14/2020 3:35 PM CDT): -06/10/2020,Chronic-med mgt by rheumatology. Assessment & Plan (01/03/2019 5:11 PM CLAY ROASTER): - was following Dr. Marc at [place] but switching now. Seen by our Rheum team previously and reconsulted for colitis - Previously on prednisone and methotrexate. Recently discontinued methotrexate and started on Cellcept on 12/07. Currently holding Cellcept since 12/14. - continue to hold Cellcept per rheumatology - continue prednisone 10mg qd. Assessment & Plan (01/01/2019 4:56 PM CLAY ROASTER): - was following Dr. Marc at [place] but switching now. Seen by our Rheum team previously and reconsulted for colitis - Previously on prednisone and methotrexate. Recently discontinued methotrexate and started on Cellcept on 12/07. Currently holding Cellcept since 12/14. - continue to hold Cellcept per rheumatology - continue prednisone 10mg qd. Pending TPMT Assessment & Plan (12/26/2018 4:57 AM CLAY ROASTER): F/b Dr. Marc. Recently increased to prednisone [...] consult Assessment & Plan (12/11/2018 8:22 PM CLAY ROASTER): Chronic-med mgt by rheumatology,needs to f/u with rheum. Assessment & Plan (11/21/2018 12:33 PM CLAY ROASTER): Patient to follow up with rheumatology as scheduled. Medication as prescribed for symptoms but stressed that she must follow up with rheumatology for further treatment. Assessment & Plan (04/12/2018 1:16 PM CDT): Chronic-med mgt by rheumatology,needs to f/u with rheum Assessment & Plan (10/09/2017 11:28 AM CLAY ROASTER): Chronic-followed by rheumatology Assessment & Plan (09/28/2017 12:46 PM CLAY ROASTER): Chronic-med mgt by rheumatology MCTD (mixed connective [...] rheumatology. Assessment & Plan (10/01/2022 11:14 PM CLAY ROASTER): -06/10/2020,12/10/2020,chronic,con't current med regimen,con't plaquenil 200mg daily -03/24/2022,chronic,stable,con't plaquenil 200mg daily,followed by rheumatology. -09/21/2022,chronic,stable,con't plaquenil 200mg daily,followed by rheumatology. Assessment & Plan (03/29/2022 10:04 AM CDT): -06/10/2020,12/10/2020,chronic,con't current med regimen,con't plaquenil 200mg daily -03/24/2022,chronic,stable,con't plaquenil 200mg daily,followed by rheumatology. Assessment & Plan (12/26/2021 10:16 PM CLAY ROASTER): -POA,chronic,con't plaquenil 200mg daily,followed by rheumatology Assessment & Plan (12/31/2020 2:26 AM CLAY ROASTER): -Chronic-unchanged,con't current txs,exercise;refer pt to pain management,. -06/10/2020,12/10/2020,chronic,con't plaquenil 200mg daily,followed by rheumatology Assessment & Plan (06/16/2020 1:59 PM CDT): -Chronic-unchanged,con't current txs,exercise;refer pt to pain management,. -05/31/2020,chronic,con't plaquenil 200 mg every day. Assessment & Plan (06/14/2020 3:29 PM CDT): -Chronic-unchanged,con't current txs,exercise;refer pt to pain management,. -06/10/2020,chronic,con't plaquenil 200mg daily,followed by rheumatology Assessment & Plan (12/11/2018 8:22 PM CLAY ROASTER): Chronic-unchanged,con't current txs,exercise;refer pt to pain management,. Assessment & Plan (07/18/2018 11:38 AM CDT): Chronic-unchanged,con't current txs,exercise;refer pt to pain management, Assessment & Plan (06/24/2018 9:22 AM CDT): Chronic-unchanged,con't current txs,exercise;refer pt to pain management, Assessment & Plan (04/12/2018 1:18 PM CDT): Chronic-con't current txs,exercise Assessment & Plan (09/28/2017 12:45 PM CLAY ROASTER): Chronic-con't current txs,exercise Long-term use of Plaquenil 06/25/2017 Vitamin D deficiency 06/25/2017 Assessment & Plan (07/09/2024 5:59 PM CDT): -06/10/2020,12/10/2020,chronic,con't supplement. -03/24/2022,chronic,stable,con't supplement. -09/21/2022,chronic,stable,con't supplement. -05/25/2023,chronic,stable,con't supplement. -07/05/2024,chronic,stable,con't supplement. Assessment & Plan (06/13/2023 10:43 AM CDT): -06/10/2020,12/10/2020,chronic,con't supplement. -03/24/2022,chronic,stable,con't supplement. -09/21/2022,chronic,stable,con't supplement. -05/25/2023,chronic,stable,con't supplement. Assessment & Plan (10/01/2022 11:19 PM CLAY ROASTER): -06/10/2020,12/10/2020,chronic,con't supplement. -03/24/2022,chronic,stable,con't supplement. -09/21/2022,chronic,stable,con't supplement. Assessment & Plan (03/29/2022 10:08 AM CDT): -06/10/2020,12/10/2020,chronic,con't supplement. -03/24/2022,chronic,stable,con't supplement. Assessment & Plan (12/31/2020 2:27 AM CLAY ROASTER): -06/10/2020,12/10/2020,chronic,con't supplement. Assessment & Plan (06/16/2020 1:58 [...] program. Assessment & Plan (10/01/2022 11:17 PM CLAY ROASTER): -06/10/2020,12/10/2020,chronic,con't naproxen 500mg bid,cymbalta 30mg every day [...] day. Assessment & Plan (12/31/2020 2:27 AM CLAY ROASTER): -06/10/2020,12/10/2020,chronic,con't naproxen 500mg bid,cymbalta 30mg qd Assessment & Plan (06/16/2020 1:56 PM CDT): -05/31/2020,Chronic-con't current med regimen. Assessment & Plan (06/14/2020 3:25 PM CDT): -06/10/2020,chronic,con't naproxen 500mg bid,cymbalta 30mg qd Assessment & Plan (06/24/2018 9:22 AM CDT): Chronic-con't current txs,exercise Assessment & Plan (10/09/2017 11:28 AM CLAY ROASTER): Chronic-con't pain mgt Fibromyalgia 06/25/2017 Assessment & Plan (07/20/2024 4:20 PM CDT): Chronic, unchanged. Followed by rheumatology. Assessment & Plan (07/09/2024 6:06 PM CDT): -06/10/2020,12/10/2020,Chronic-con't current med regimen. -03/24/2022,Chronic,unchanged,con't current med regimen,exercises. -09/21/2022,Chronic,unchanged,con't current med regimen,exercises. -07/05/2024,Chronic,unchanged,con't current med regimen,exercises. Assessment & Plan (10/01/2022 11:14 PM CLAY ROASTER): -06/10/2020,12/10/2020,Chronic-con't current med regimen. -03/24/2022,Chronic,unchanged,con't current med regimen,exercises. -09/21/2022,Chronic,unchanged,con't current med regimen,exercises. Assessment & Plan (03/29/2022 10:04 AM CDT): -06/10/2020,12/10/2020,Chronic-con't current med regimen. -03/24/2022,Chronic,unchanged,con't current med regimen,exercises. Assessment & Plan (12/26/2021 10:14 PM CLAY ROASTER): -POA,Chronic,con't current med regimen,followed by rheumatology. Assessment & Plan (12/31/2020 2:27 AM CLAY ROASTER): -06/10/2020,12/10/2020,Chronic-con't current med regimen. Assessment & Plan (06/16/2020 1:55 PM CDT): -05/31/2020,Chronic,con't current med regimen. Assessment & Plan (06/14/2020 3:24 PM CDT): -06/10/2020,Chronic-con't current med regimen. Assessment & Plan (12/11/2018 8:19 PM CLAY ROASTER): Chronic-con't current med regimen. Assessment & Plan (04/12/2018 1:19 PM CDT): Chronic-con't current med regimen,followed by rheumatology Assessment & Plan (10/09/2017 11:28 AM CLAY ROASTER): Chronic-con't med regimen Assessment & Plan (09/28/2017 12:45 PM CLAY ROASTER): Chronic-con't current med regimen,followed by Hot flashes due to menopause 10/14/2016 Assessment & Plan (10/01/2022 11:05 PM CLAY ROASTER): -06/10/2020,12/10/2020,chronic,con't vitamin E daily. -03/24/2022,chronic,stable,con't vitamin E daily. -09/21/2022,chronic,stable,con't vitamin E daily. Assessment & Plan (03/29/2022 9:59 AM CDT): -06/10/2020,12/10/2020,chronic,con't vitamin E daily. -03/24/2022,chronic,stable,con't vitamin E daily. Assessment & Plan (12/31/2020 2:28 AM CLAY ROASTER): -06/10/2020,12/10/2020,chronic,con't vitamin E daily. Assessment & Plan (06/16/2020 1:56 PM CDT): -05/31/2020,chronic,con't vitamin E. Assessment & Plan (06/14/2020 3:25 PM CDT): -06/10/2020,chronic,con't vitamin E daily. Assessment & Plan (12/11/2018 8:21 PM CLAY ROASTER): -chronic,con't vitamin E. Moderate episode of recurrent major depressive d isorder 08/19/2016 Overview (02/19/2017): Moderate episode of recurrent major depressive disorder Assessment & Plan (10/08/2024 5:14 PM CLAY ROASTER): -05/25/2023,chronic,unchanged,con't elavil,buspar,was encouraged to maintain a regular [...] day,exercises. Assessment & Plan (01/02/2023 12:52 PM CLAY ROASTER): -06/10/2020,12/10/2020,chronic,con't cymbalta 30mg every day.Psychological condition is improving with lifestyle modifications. Continue current treatment regimen. Psychological condition will be reassessed at the next regular appointment. -03/24/2022,chronic,stable,con't cymbalta 30mg every day. -04/21/2022,chronic,stable,con't cymbalta 30mg every day. -06/10/2022,chronic,stable,con't cymbalta 30mg every day. -09/21/2022,chronic,stable,con't cymbalta 30mg every day,exercises. -12/08/2022,chronic,worse post stroke,has family stressors,con't cymbalta 30mg every day,exercises. Assessment & Plan (10/01/2022 11:07 PM CLAY ROASTER): -06/10/2020,12/10/2020,chronic,con't cymbalta 30mg every day.Psychological condition is [...] claim on her job.Start Ativan,con't elavil,refer to [facility].She was encouraged to maintain a [...] day. Assessment & Plan (12/26/2021 10:17 PM CLAY ROASTER): -POA,chronic,con't cymbalta 60mg every day,elavil 10mg daily,salagen 5mg qhs.Psychological condition is improving with lifestyle modifications. Continue current treatment regimen. Psychological condition will be reassessed at the next regular appointment. Assessment & Plan (12/31/2020 2:26 AM CLAY ROASTER): -06/10/2020,12/10/2020,chronic,con't cymbalta 30mg every day.Psychological condition is [...] appointment. Assessment & Plan (12/11/2018 8:24 PM CLAY ROASTER): Psychological condition is improving with lifestyle modifications. [...] appointment. Assessment & Plan (09/28/2017 12:46 PM CLAY ROASTER): Psychological condition is unchanged. Continue current treatment regimen. Regular aerobic exercise. Psychological condition will be reassessed at the next regular appointment. Atopic rhinitis 03/06/2016 Overview (02/19/2017): Other allergic rhinitis Assessment & Plan (10/01/2022 11:01 PM CLAY ROASTER): -06/10/2020,12/10/2020,chronic,keep well hydrated -03/24/2022,chronic,stable,use nasal spray. -09/21/2022,chronic,stable,use nasal spray,increase water intake. Assessment & Plan (03/29/2022 9:56 AM CDT): -06/10/2020,12/10/2020,chronic,keep well hydrated -03/24/2022,chronic,stable,use nasal spray. Assessment & Plan (12/31/2020 2:26 AM CLAY ROASTER): -06/10/2020,12/10/2020,chronic,keep well hydrated Assessment & Plan (06/16/2020 [...] doppler. Assessment & Plan (10/01/2022 11:20 PM CLAY ROASTER): -06/10/2020,12/10/2020,chronic,improved,con't low salt diet -03/24/2022,chronic,stable,con't low salt diet. -09/21/2022,chronic,stable,con't low salt diet. Assessment & Plan (03/29/2022 10:08 AM CDT): -06/10/2020,12/10/2020,chronic,improved,con't low salt diet -03/24/2022,chronic,stable,con't low salt diet. Assessment & Plan (12/31/2020 2:26 AM CLAY ROASTER): -06/10/2020,12/10/2020,chronic,improved,con't low salt diet Assessment & Plan (06/16/2020 1:55 PM CDT): -05/31/2020,chronic,con't low salt diet. Assessment & Plan (06/14/2020 3:23 PM CDT): -06/10/2020,chronic,improved,con't low salt diet Eczema 07/31/2014 Overview (02/19/2017): Eczema Assessment & Plan (07/09/2024 6:08 PM CDT): -06/10/2020,12/10/2020,Chronic-improving with con't triamcinolone cream,diet changes. -03/24/2022,Chronic,stable,con't triamcinolone cream,diet changes. -09/21/2022,Chronic,stable,con't triamcinolone cream,diet changes. -07/05/2024,,Chronic,stable,con't triamcinolone cream,diet changes. Assessment & Plan (10/01/2022 11:18 PM CLAY ROASTER): -06/10/2020,12/10/2020,Chronic-improving with con't triamcinolone cream,diet changes. -03/24/2022,Chronic,stable,con't triamcinolone cream,diet changes. -09/21/2022,Chronic,stable,con't triamcinolone cream,diet changes. Assessment & Plan (03/29/2022 10:07 AM CDT): -06/10/2020,12/10/2020,Chronic-improving with con't triamcinolone cream,diet changes. -03/24/2022,Chronic,stable,con't triamcinolone cream,diet changes. Assessment & Plan (12/31/2020 2:25 AM CLAY ROASTER): -06/10/2020,12/10/2020,Chronic-improving with con't triamcinolone cream,diet changes. Assessment & Plan (06/16/2020 1:54 PM CDT): -05/31/2020,Chronic-improving with con't triamcinolone cream,diet changes. Assessment & Plan (06/14/2020 3:23 PM CDT): -06/10/2020,Chronic-improving with con't triamcinolone cream,diet changes. Assessment & Plan (12/11/2018 8:22 PM CLAY ROASTER): Chronic-improving with con't triamcinolone cream,diet changes. Assessment & Plan (04/12/2018 1:21 PM CDT): Chronic-improving with con't triamcinolone cream,diet changes Assessment & Plan (09/28/2017 12:43 PM CLAY ROASTER): Chronic-con't triamcinolone cream Primary insomnia 07/31/2014 Overview [...] changes. Assessment & Plan (01/02/2023 12:57 PM CLAY ROASTER): -06/10/2020,12/10/2020,Chronic-improving with sleep hygiene changes. -03/24/2022,Chronic,stable,discussed sleep hygiene changes. -09/21/2022,Chronic,stable,discussed sleep hygiene changes. -12/08/2022,Chronic,stable,discussed sleep hygiene changes. Assessment & Plan (10/01/2022 11:18 PM CLAY ROASTER): -06/10/2020,12/10/2020,Chronic-improving with sleep hygiene changes. -03/24/2022,Chronic,stable,discussed sleep hygiene changes. -09/21/2022,Chronic,stable,discussed sleep hygiene changes. Assessment & Plan (03/29/2022 10:07 AM CDT): -06/10/2020,12/10/2020,Chronic-improving with sleep hygiene changes. -03/24/2022,Chronic,stable,discussed sleep hygiene changes. Assessment & Plan (12/26/2021 10:15 PM CLAY ROASTER): -POA,Chronic-improving with sleep hygiene changes. Assessment & Plan (12/31/2020 2:25 AM CLAY ROASTER): -06/10/2020,12/10/2020,Chronic-improving with sleep hygiene changes. Assessment & Plan (06/16/2020 1:56 PM CDT): -05/31/2020,Chronic-improving with sleep hygiene changes. Assessment & Plan (06/14/2020 3:26 PM CDT): -06/10/2020,Chronic-improving with sleep hygiene changes. Assessment & Plan (12/11/2018 8:25 PM CLAY ROASTER): Chronic-improving with sleep hygiene changes,con't ambien. Assessment [...] prn. Assessment & Plan (10/01/2022 11:17 PM CLAY ROASTER): -06/10/2020,12/10/2020,chronic,Asthma is improving with treatment.con't albuterol. The [...] prn. Assessment & Plan (12/26/2021 10:16 PM CLAY ROASTER): -POA,chronic,stable,con't albuterol prn. The patient is experiencing frequent daytime asthma symptoms. She is experiencing frequent nighttime asthma symptoms. Discussed monitoring symptoms and use of quick-relief medications and contacting us early in the course of exacerbations. Warning signs of respiratory distress were reviewed with the patient. Counseled to void exposure to cigarette smoke. Assessment & Plan (12/31/2020 2:25 AM CLAY ROASTER): -06/10/2020,12/10/2020,chronic,Asthma is improving with treatment.con't albuterol. The [...] smoke. Assessment & Plan (12/26/2018 4:59 AM CLAY ROASTER): cont albuterol PRN Assessment & Plan (12/11/2018 8:20 PM CLAY ROASTER): Asthma is improving with treatment.con't prednisone. The [...] smoke. Assessment & Plan (09/24/2017 8:54 AM CLAY ROASTER): Asthma is improving with treatment.given samples of [...] Wednesday,December. Assessment & Plan (01/02/2023 12:56 PM CLAY ROASTER): -12/08/2022,She's in physical therapy through end december has difficulty with memory,has right sided weakness.COMPLETED DISABILITY FORMS FOR PT,f/u in 4 weeks. AMS (altered mental status) 10/22/2022 12/08/2022 Hyperglycemia 09/21/2022 12/08/2022 Chest pain 12/26/2021 12/27/2021 Assessment & Plan (12/26/2021 10:12 PM CLAY ROASTER): -POA,She presented to the ED c/o pain radiating to her left arm and neck.Echo was unremarkable as well as stress today.She's c/o midsternal pain at exam,no associated sxs.Pain is not reproducible.Possibly GI related,HH.Con't PPI,consult GI. Chest pain, unspecified type 12/26/2021 12/26/2021 Cellulitis of left lower extremity 12/24/2021 03/05/2022 Assessment & Plan (12/28/2021 7:20 PM CLAY ROASTER): -12/24/2021,Rash on leg for several months,start ceftin 500mg bid x10d. Assessment & Plan (12/26/2021 10:10 PM CLAY ROASTER): -POA,She states rash has been present on [...] effects. Assessment & Plan (01/02/2023 12:49 PM CLAY ROASTER): -03/24/2022,chronic,BP 118/84,stable,con't norvasc 5mg daily,lisinopril 5mg daily,low salt diet,was encouraged to maintain a regular cardiovascular exercise program. -09/21/2022,chronic,BP 130/84,stable,con't norvasc 5mg daily,lisinopril 5mg daily,low salt diet,was encouraged to maintain a regular cardiovascular exercise program. -12/08/2022,chronic,BP 130/82,stable,con't norvasc 5mg daily,lisinopril 5mg daily,low salt diet,was encouraged to maintain a regular cardiovascular exercise program. Assessment & Plan (10/01/2022 10:59 PM CLAY ROASTER): -03/24/2022,chronic,BP 118/84,stable,con't norvasc 5mg daily,lisinopril 5mg daily,low [...] now. Assessment & Plan (12/26/2021 10:14 PM CLAY ROASTER): -POA,chronic,BP 145/91,stable,con't norvasc 5mg daily,lisinopril 10mg daily,low salt diet. Chronic jaw pain 12/10/2020 03/29/2022 Assessment & Plan (12/31/2020 2:32 AM CLAY ROASTER): -12/10/2020,most likely TMJ Dysfunction,wear mouthgard Refractive error 08/08/2020 03/29/2022 Assessment & Plan (12/31/2020 2:31 AM CLAY ROASTER): -12/10/2020,stable Chronic sialoadenitis 06/28/20202021 Assessment & Plan (12/31/2020 2:31 AM CLAY ROASTER): -12/10/2020,chronic,stable Submandibular sialoadenitis 06/28/2020 03/29/2022 Assessment & Plan (12/31/2020 2:31 AM CLAY ROASTER): -12/10/2020,chronic,stable Chronic parotitis 06/27/2020 03/29/2022 Assessment & Plan (12/31/2020 2:30 AM CLAY ROASTER): -12/10/2020,chronic,stable Annual physical exam 05/31/2020 024 Assessment [...] (02/08/2019): Added automatically from request for surgery [id number] Assessment & Plan (02/19/2019 10:34 PM CDT): -Recurrent,unclear etiology,f/u with GI Visit for suture removal 01/21/2019 Assessment & Plan (01/21/2019 10:35 PM CLAY ROASTER): -removed 1 suture from left lateral thigh post biopsy Polyp of cecum 01/20/2019 06/14/2020 Assessment & Plan (01/20/2019 4:11 PM CLAY ROASTER): -hx,removed on colonoscopy Hematochezia 01/01/2019 05/31/2020 Assessment & Plan (02/19/2019 10:31 PM CDT): -unremarkable colonoscopy Assessment & Plan (01/21/2019 10:22 PM CLAY ROASTER): -unremarkable colonoscopy Assessment & Plan (01/04/2019 6:34 PM CLAY ROASTER): - 2/2 colitis -one bloody bm yesterdaynone today - stable hb - Monitor serial CBC. - Denies any upper GI complaints. No indication for PPI BID Assessment & Plan (01/03/2019 5:11 PM CLAY ROASTER): - 2/2 colitis - stable hb - Monitor serial CBC. - Denies any upper GI complaints. No indication for PPI BID Assessment & Plan (01/02/2019 3:41 PM CLAY ROASTER): - 2/2 colitis - dark blood clots BEAD INSPECTOR with abdominal pain. No bleeding now and has stable hgb - Monitor serial CBC. - Denies any upper GI complaints. No indication for PPI BID Colitis 12/28/2018 05/31/2020 Assessment & Plan (02/19/2019 10:31 PM CDT): -chronic,followed by GI Assessment & Plan (01/21/2019 10:22 PM CLAY ROASTER): -acute,start cipro,flagyl Assessment & Plan (01/04/2019 6:38 PM CLAY ROASTER): - seems inflammatory than infectious. Still some [...] now. Assessment & Plan (01/03/2019 5:10 PM CLAY ROASTER): - seems inflammatory than infectious. Had one [...] now. Assessment & Plan (01/02/2019 3:40 PM CLAY ROASTER): - seems inflammatory than infectious. - has [...] 2 Assessment & Plan (12/31/2020 2:29 AM CLAY ROASTER): -06/10/2020,12/10/2020,chronic,con't current medication regimen. Assessment & Plan (06/16/2020 2:03 PM CDT): -05/31/2020,chronic,con't current med regimen. Assessment & Plan (06/14/2020 3:33 PM CDT): -06/10/2020,chronic,con't current medication regimen. Bloody diarrhea 12/26/2018 12/28/2018 Assessment & Plan (12/26/2018 4:56 AM CLAY ROASTER): Lactate, lipase wnl. ESR elevated to 28, [...] 12/28/2018 Assessment & Plan (12/26/2018 4:57 AM CLAY ROASTER): Ongoing x 1 month, no eye pain [...] counselor. Assessment & Plan (10/01/2022 11:10 PM CLAY ROASTER): -06/10/2020,12/10/2020,chronic,con't cymbalta 30mg every day.Psychological condition is [...] day. Assessment & Plan (12/31/2020 2:29 AM CLAY ROASTER): -06/10/2020,12/10/2020,chronic,worse,con't cymbalta 30mg every day. Assessment & Plan (06/16/2020 1:52 PM CDT): -05/31/2020,chronic,con't cymbalta 30mg qd. Assessment & Plan (06/14/2020 3:21 PM CDT): -06/10/2020,chronic,worse,con't cymbalta 30mg every day. Assessment & Plan (02/19/2019 10:32 PM CDT): -chronic,worse,con't ativan. Assessment & Plan (12/11/2018 8:26 PM CLAY ROASTER): -chronic,worse,con't ativan. Assessment & Plan (07/18/2018 11:38 AM CDT): -chronic,worse,start ativan Heel spur 06/24/2018 11/29/2018 Assessment & Plan (06/24/2018 8:59 AM CDT): -symptomatic,start naproxen,wear inserts in all shoes,refer to podiatry, BMI 30.0-30.9,adult 04/13/2018 01/22/20 19 Assessment & Plan (12/11/2018 8:25 PM CLAY ROASTER): Obesity-improving with lifestyle changes. Discussed the patient's [...] 04/12/2018 Assessment & Plan (10/04/2017 6:53 PM CLAY ROASTER): Acute-symptomatic,start ceftin,flonase,increase water intake Acute pharyngitis due to oth er specified organisms 10/04/2017 04/12/2018 Assessment & Plan (10/04/2017 6:54 PM CLAY ROASTER): Acute-start ceftin Obesity (BMI 30-39.9) 10/04/20172017 Assessment & Plan (10/09/2017 11:27 AM CLAY ROASTER): Obesity is improving with lifestyle modifications. Discussed the patient's BMI. The BMI is above average; BMI management plan is completed. Informal exercise measures discussed, e.g. taking stairs instead of elevator. Regular aerobic exercise program discussed. Assessment & Plan (10/04/2017 6:55 PM CLAY ROASTER): Obesity is unchanged. Discussed the patient's BMI. The BMI is above average; BMI management plan is completed. Informal exercise measures discussed, e.g. taking stairs instead of elevator. Regular aerobic exercise program discussed. MCTD (mixed connective tissue disease) 08/26/2017 09/24/2017 Anemia 08/26/2017 06/13/2023 Assessment & Plan (10/01/2022 11:06 PM CLAY ROASTER): -06/10/2020,12/10/2020,chronic,con't supplement. -03/24/2022,chronic,stable,con't supplement. -09/21/2022,chronic,stable,con't supplement. Lab [...] 03/11/2022 Assessment & Plan (12/26/2021 10:08 PM CLAY ROASTER): -POA,chronic,stable,con't supplement. Lab Results Component Value Date WBC 4.7 12/26/2021 HGB 11.3 (L) 12/26/2021 HCT 35.9 12/26/2021 MCV 92.1 12/26/2021 LABPLAT 222 12/26/2021 Assessment & Plan (12/31/2020 2:28 AM CLAY ROASTER): -06/10/2020,12/10/2020,chronic,con't supplement. Lab Results Component Value Date [...] 05/31/2020 Assessment & Plan (12/11/2018 8:24 PM CLAY ROASTER): -chronic,con't supplement. 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 Never 12/22/2023 Do you belong to any clubs o r organizations such as yazidism groups, unions, fraternal or athletic groups, or [...] staff should administer the PHQ-9) 2 09/29/2024 [facility] - Occupational Stress Questionnaire Answer Date Recorded [...] place to sleep or slept in a fdc (including now)? No 12/22/2023 PHQ-9 Answer Date [...] on file Legal Sex Female 7:07 PM CLAY ROASTER Gender Identity Not on file Sexual Orientation Straight 04/13/2020 12 :41 PM CDT Last Filed Vital Signs Vital Sign Reading Time Taken Comments Blood Pressure 122/84 01/09/2025 8:45 PM CLAY ROASTER Pulse 92 01/09/2025 8:45 PM CLAY ROASTER Temperature 36.9 C (98.5 F) 01/09/2025 8:45 PM CLAY ROASTER Respiratory Rate 18 01/09/2025 8:45 PM CLAY ROASTER Oxygen Saturation 97% 01/09/2025 8:45 PM CLAY ROASTER Inhaled Oxygen Concentration - - Weight 104.3 kg (230 lb) 01/09/2025 5:15 PM CLAY ROASTER Height 180.3 cm (5' 10.98 ) 09/29/2024 10:28 AM CLAY ROASTER Body Mass Index 32.09 09/29/2024 10:28 AM CLAY ROASTER Plan of Treatment Not on file Procedures Procedure Name Priority Date/Time Associated Diagnosis Comments BLOOD CULTURE STAT 01/09/2025 5:45 PM CLAY ROASTER BLOOD CULTURE STAT 01/09/2025 5:45 PM CLAY ROASTER EGFR STAT 01/09/2025 5:01 PM CLAY ROASTER DIFFERENTIAL AUTO STAT 01/09/2025 5:0 1 PM CLAY ROASTER COMPREHENSIVE METABOLIC PANEL STAT 01/09/2025 5:01 PM CLAY ROASTER CBC WITH AUTO DIFFERENTIAL STAT 01/09/2025 5:01 PM CLAY ROASTER XR CHEST PA LATERAL 2 VIEWS ED 01/09/2025 2:45 PM CLAY ROASTER SCREENING MAMMOGRAM BILATERAL W JOZEF Schedule Routine, [...] Blood culture Blood Peripheral (01/09/2025 5:45 PM CLAY ROASTER) Report Final Report: No growth Comment:Testing performed by : [facility], [address] [place]., [address] Blood (Peripheral) 01/09/2025 5:45 PM CLAY ROASTER 01/09/2025 9:52 PM CLAY ROASTER Ismael LY - 01/14/2025 7:00 AM CLAY ROASTER From a different site than #1. Draw [...] performance characteristics have been verified by the [facility] Microbiology Laboratory. For questions about this culture, contact the Microbiology Laboratory at [phone]. Interpretive data was last revised on 24. Peter Nur MD LAB MICROBIOLOGY - GENER AL ORDERABLES Final Result [id number] Department [place] [address] * Blood culture Blood Peripheral (01/09/2025 5:45 PM CLAY ROASTER) Report Final Report: No growth Comment:Testing performed by : [facility], [address] [place]., [address] Blood (Peripheral) 01/09/2025 5:45 PM CLAY ROASTER 01/09/2025 9:25 PM CLAY ROASTER Ismael LY CH - 01/14/2025 7:00 AM CLAY ROASTER Draw Blood cultures before administration of Antibiotics [...] performance characteristics have been verified by the [facility]biology [facility]. For questions about this culture, contact the Microbiology Laboratory at [phone]. Interpretive data was last revised on 24. Peter Nur MD LAB MICROBIOLOGY - GENER AL ORDERABLES Final Result Performing Organization Address City/[facility]/ZIP Co de Phone Number ALIYAH LOZA [id number] Department [place] [address] * eGFR (01/09/2025 5:01 PM CLAY ROASTER) eGFR 61 >=60 mL/min/1. 73 m2 Comment: [...] last reviewed 2021. Blood 01/09/2025 5:01 PM CLAY ROASTER 01/09/2025 5:07 PM CLAY ROASTER Lana RUFFIN LAB BLOOD ORDERABLES Final Re sult Performing Organization Address City/[facility]/ZIP Co de Phone Number ALIYAH LOZA [address] Department [place] [address] * (ABNORMAL) Differential, auto (01/09/2025 5:01 PM CLAY ROASTER) Neutrophil abs 6.6(H) 1.5 - 6.5 K/cumm Imm gran abs 0.2(H) 0.0 - 0.1 K/cumm [facility] Lymphocyte abs 2.8 0.8 - 3.3 K/cumm [facility] Monocyte abs 1.0(H) 0.2 - 0.8 K/cumm [facility] Eosinophil abs 0.0 0.0 - 0.5 K/cumm [facility] Basophil abs 0.0 0.0 - 0.1 K/cumm [facility] Neutrophil pct 62.0 % [facility] Comment: Interpretive Data Percent cell count reference ranges are not reported, since discordance with absolute values may lead to misinterpretation of CBC data. Current Interpretive Data was last revised on 2018. Imm gran pct 1.9 % [facility] Comment: Interpretive Data Percent cell count reference ranges are not reported, since discordance with absolute values may lead to misinterpretation of CBC data. Current Interpretive Data was last revised on 2018. Lymphocyte pct 26.2 % [facility] Comment: Interpretive Data Percent cell count reference ranges are not reported, since discordance with absolute values may lead to misinterpretation of CBC data. Current Interpretive Data was last revised on 2018. Monocyte pct 9.4 % [facility] Comment: Interpretive Data Percent cell count reference ranges are not reported, since discordance with absolute values may lead to misinterpretation of CBC data. Current Interpretive Data was last revised on 2018. Eosinophil pct 0.3 % [facility] Comment: Interpretive Data Percent cell count reference ranges are not reported, since discordance with absolute values may lead to misinterpretation of CBC data. Current Interpretive Data was last revised on 2018. Basophil pct 0.2 % [facility] Comment: Interpretive Data Percent cell count reference ranges are not reported, since discordance with absolute values may lead to misinterpretation of CBC data. Current Interpretive Data was last revised on 2018. Blood 01/09/2025 5:01 PM CLAY ROASTER 01/09/2025 5:07 PM CLAY ROASTER us Lana RUFFIN LAB BLOOD ORDERABLES Final Re sult ALIYAH DAGO [id number] Department [place] [address] * (ABNORMAL) CBC with auto differential (01/09/2025 5:01 PM CLAY ROASTER) Pathologist [facility] WBC 10.6(H) 3.8 - 9.9 K/cumm Hgb 11.9 11.9 - 15.5 g/dL [facility] Hct 37.4 35.6 - 45.5 % [facility] Plt 322 150 - 400 K/cumm [facility] MPV 10.2 9.1 - 12.3 fL [facility] RBC 4.13 3.90 - 5.20 M/cumm [facility] MCV 90.6 81.3 - 96.4 fL [facility] MCH 28.8 27.1 - 33.3 pg [facility] MCHC 31.8(L) 32.3 - 35.7 g/dL [facility] RDW CV 12.8 11.1 - 14.9 % [facility] RDW SD 42.4 35.7 - 48.1 fL [facility] NRBC abs 0.00 0.00 - 0.01 K/cumm [facility] Blood 01/09/2025 5:01 PM CLAY ROASTER 01/09/2025 5:07 PM CLAY ROASTER us Lana RUFFIN LAB BLOOD ORDERABLES Final Re sult [facility] [id number] Department [place] [address] * Comprehensive metabolic panel (01/09/2025 5:01 PM CLAY ROASTER) Pathologist [facility] Sodium 142 135 - 145 mmol/L Potassium, pl 4.2 3.3 - 4.9 mmol/L [facility] Chloride 104 97 - 110 mmol/L [facility] CO2 25 22 - 32 mmol/L [facility] Anion gap 13 2 - 15 mmol/L [facility] BUN 16 6 - 25 mg/dL [facility] Creatinine 1.10 0.60 - 1.10 mg/dL [facility] Glucose 98 70 - 199 mg/dL [facility] Comment: Interpretive Data Fasting glucose [...] Units/L [facility] Blood 01/09/2025 5:01 PM CLAY ROASTER 01/09/2025 5:07 PM CLAY ROASTER Lana RUFFIN LAB BLOOD ORDERABLES Final Re sult [address]IYAH [id number] Department [place] [address] * XR Chest Pa Lateral 2 Vw (01/09/2025 2:45 PM CLAY ROASTER) Anatomical Region Laterality Modality Body, Chest N/A Computed Radiogr aphy 01/09/2025 2:49 PM CLAY ROASTER Impressions 01/09/2025 2:49 PM CLAY ROASTER RIGHT UPPER LOBE PNEUMONIA Electronically signed by: Moe Ferreira M.D. Narrative 01/09/2025 2:49 PM CLAY ROASTER EXAMINATION: XR CHEST PA LATERAL 2 VIEWS [...] Benton MD - 03/09/2022 4:06 PM CDT [facility] Endoscopy [facility] Patient Name: Kiera Mancuso [...] bowel preparation was evaluated using the BBPS (Brady Bowel Preparation Scale) with scores of:Right Colon [...] - GENERAL ORDERABLES Edited Result - Final [facility] [place] [address] from Last 3 Months or Most Recently Relevant to Health Maintenance Insurance [employer] [place] [employer] [place] [employer] [place] Advance Directives For more information, please contact: [phone] * Full Code (Latest Code Status on [...] 3:13 PM 03/11/2022 3:21 PM Care Teams Sand Screener Operator Relationship Specialty Start Date End Date Marisa Rehman DO [address] [place] [address] PCP - General 09/30/20 Marisa Rehman DO [address] [place] [address] PCP - [place] Attributed PCP 12/16/18 Marisa Rehman DO [address] [place] [address] Family Medicine 09/30/20
--- OUTSIDE RECORDS SUMMARY | 2025-02-01 00:43 | XMS_ITS | Encounter Summary ---
Author Organization [facility] Address [address] [place] [address] Care Team Providers Care Livestock Farmers Name Role Phone Marisa Rehman DO Primary Care [place] [address] Marisa Rehman DO Unavailable + [phone] Marisa Rehman DO Unavailable [phone] Reason for Visit * Reason Onset Date Comments Medical Question/Miscellaneous 01/09/2025 Encounter Details Date Type Department Care Team (Late st Contact Info) Description 01/09/2025 Telephone [facility] Primary Care at [facility] - [address] [id number] Marisa Rehman DO [address] [place] [id number] Medical Question/Miscellaneous Social History Tobacco Use [...] often do you attend chur ch or judaism services? Never 12/22/2023 Do you belong to any clubs o r organizations such as episcopal groups, unions, fraternal or athletic groups, or [...] staff should administer the PHQ-9) 2 09/29/2024 [facility] - Occupational [...] place to sleep or slept in a mcc (including now)? No 12/22/2023 PHQ-9 Answer Date [...] on file Legal Sex Female 7:07 PM SECONDARY SET UP MAN Gender Identity Not on file Sexual Orientation Straight 04/13/2020 12 :41 PM CDT documented as of this encounter Miscellaneous Notes * Telephone Encounter - Cecilio Hooker CMA - 01/09/2025 1:07 PM CST Pt advised to go to ED. NDARY SET UP MAN * Telephone Encounter - Ruba Gloria MA [...] message need to be routed? 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 NDARY SET UP MAN documented in this encounter Plan of Treatment Not on file documented as of this encounter Visit Diagnoses Not on filedocumented in this encounter Care Teams Livestock Farmers Relationship Specialty Start Date End Date Marisa Rehman DO [address] [facility] [address] [place], [place] [id number] PCP - General 09/30/20 Marisa Rehman DO [address] [facility] [address], [place] [id number] PCP - [place] Attributed PCP 12/16/18 Marisa Rehman DO [address] [facility] [address], [place] [address] Family Medicine 09/30/20 documented as of this encounter
== END 2025-02-01 00:24 | disposition left against medical advice (07) ==
PROVIDERS: Emergency Provider Emergency Medicine
DX: R07.9 Chest pain, unspecified (principal)
CPT/HCPCS: 36415; 71046; 80053; 83690; 84484; 85025; 85610; 85730; 93005; 99199